=== PATIENT | male | born 1970 | race Two or more races ===

== ENCOUNTER 2022-03-18 15:48 | Emergency (ER) | payer MEDICAID ==
[~2022-03-18] VITALS: Ht 180.3 cm; Wt 104.5 kg
[~2022-03-18 15:48] MED LIST: ALBU2TAB4 PO; BUSP10TA90 PO; LITH150C6 PO; LOSA-69 PO; METF500S PO; MONT5CHW23 PO; PROP60CA34 PO; QUET50TA PO; ROSU20TA14 PO; TOPI50TA32 PO
[2022-03-18 16:44] LABS: Basophils # (auto) 0.1 10 ^3/uL (0-0.2); Basophils % (auto) 0.7 % (0.0-2.0); Eosinophils # (auto) 0.1 10 ^3/uL (0-0.8); Eosinophils % (auto) 1.4 % (0.0-7.0); Hemoglobin 15.5 g/dL (13.5-17.5); Lymphocytes # (auto) 2.9 10 ^3/uL (0.4-5.4); Lymphocytes % (auto) 27.8 % (10.0-50.0); Mean Corpuscular Hemoglobin 28.8 pg (28.0-32.0); Mean Corpuscular Hgb Conc. 32.2 g/dL (32.0-36.0); Mean Corpuscular Volume 89.5 fL (80.0-100.0); Monocytes # (auto) 0.9 10 ^3/uL (0-1.3); Monocytes % (auto) 8.3 % (0.0-12.0); Neutrophils # (auto) 6.4 10 ^3/uL (1.6-8.6); Neutrophils % (auto) 61.8 % (37.0-80.0); Red Blood Cells 5.37 10^6/uL (4.5-5.90); Red Cell Distribution Width 15.7 % (11.8-14.3); White Blood Cell 10.3 10^3/uL (4.4-10.8)
[2022-03-18 17:08] LABS: Alanine Aminotransferase 28 U/L (16-61); Albumin 4.2 g/dL (3.4-5.0); Anion Gap 7 (5-15); Aspartate Aminotransferase 9 U/L (15-37); Blood Alcohol < 3.0 mg/dL (0-5); Blood Urea Nitrogen 37 mg/dL (7-18); Calcium 9.6 mg/dL (8.5-10.1); Carbon Dioxide 27 mmol/L (21-32); Chloride 105 mmol/L (98-107); Glucose 106 mg/dL (74-106); Potassium 4.2 mmol/L (3.5-5.1); Sodium 139 mmol/L (136-145)
[2022-03-18 17:11] LABS: Alkaline Phosphatase 54 U/L (45-117); BUN/Creatinine Ratio 26.1; Bilirubin, Total 0.3 mg/dL (0.2-1.0); GFR African American 67 mL/min; GFR Non-African American 55 mL/min; Total Protein 8.1 g/dL (6.4-8.2)
[2022-03-18 18:28] LABS: Urine Amorphous Crystal MOD /hpf (None Seen); Urine Bacteria FEW /hpf (None Seen); Urine Blood Negative /uL (Negative); Urine Hyaline Cast FEW /lpf (0 - 2); Urine Mucus FEW (None Seen); Urine Specific Gravity 1.029 (1.001-1.035); Urine WBC 93 /hpf (0 - 3)
[2022-03-18 18:43] LABS: Amphetamine Screen, Urine NEGATIVE (NEGATIVE); Barbiturate Scree,Urine NEGATIVE (NEGATIVE); Benzodiazephine Screen, Urine POSITIVE (NEGATIVE); Cannabinoid Screen, Urine POSITIVE (NEGATIVE); Cocaine Screen, Urine NEGATIVE (NEGATIVE); Opiate Scree,Urine NEGATIVE (NEGATIVE); Phencyclidine Screen, Urine NEGATIVE (NEGATIVE)
[2022-03-18] MEDS ORDERED: NITR-87 PO (19:11)
[2022-03-18] MEDS ORDERED: ACETAMINOPHEN 325 MG TAB PO ONE (19:30)
[2022-03-18 19:36] VITALS: BP 151/86
== END 2022-03-18 19:41 | disposition home or self-care (01) ==
LOC: EDBD 15:48 → ER 15:48
DX: G44.209 Tension-type headache, unspecified, not intractable (principal); N39.0 Urinary tract infection, site not specified; F12.10 Cannabis abuse, uncomplicated; F17.210 Nicotine dependence, cigarettes, uncomplicated; E11.9 Type 2 diabetes mellitus without complications; J44.9 Chronic obstructive pulmonary disease, unspecified; E78.5 Hyperlipidemia, unspecified; I10 Essential (primary) hypertension
CPT/HCPCS: 36415; 70450; 80053; 80307; 80320; 81001; 85025; 93005

== ENCOUNTER 2023-11-05 13:53 | Inpatient (IN) | payer MEDICAID ==
[~2023-11-05] VITALS: Ht 177.8 cm; Wt 131.4 kg
[~2023-11-05 13:53] MED LIST changes: +ALBU2TAB11 PO; -ALBU2TAB4 PO; +LOSA-534 PO; -LOSA-69 PO; -METF500S PO; +METF500S3 PO; +MONT5CHW12 PO; -MONT5CHW23 PO; +NITR-87 PO
[2023-11-05 14:25] LABS: Basophils # (auto) 0.1 10 ^3/uL (0-0.2); Basophils % (auto) 0.5 % (0.0-2.0); Eosinophils # (auto) 0 10 ^3/uL (0-0.8); Eosinophils % (auto) 0.3 % (0.0-7.0); Hemoglobin 15.2 g/dL (13.5-17.5); Lymphocytes # (auto) 1.4 10 ^3/uL (0.4-5.4); Lymphocytes % (auto) 12.4 % (10.0-50.0); Mean Corpuscular Hemoglobin 29.4 pg (28.0-32.0); Mean Corpuscular Hgb Conc. 32.9 g/dL (32.0-36.0); Mean Corpuscular Volume 89.4 fL (80.0-100.0); Monocytes # (auto) 0.7 10 ^3/uL (0-1.3); Monocytes % (auto) 6.3 % (0.0-12.0); Neutrophils % (auto) 80.5 % (37.0-80.0); Nucleated Red Blood Cells % 0.1 %; Red Blood Cells 5.15 10^6/uL (4.5-5.90); Red Cell Distribution Width 15.1 % (11.8-14.3); White Blood Cell 11.2 10^3/uL (4.4-10.8)
[2023-11-05 14:42] LABS: INR 1.03 (0.9-1.15); Partial Thromboplastin Time 28.8 SEC (24.5-34.5); Prothrombin Time 10.8 sec (9.3-11.8)
[2023-11-05 14:58] LABS: Alanine Aminotransferase 31 U/L (7-40); Albumin 4.7 g/dL (3.2-4.8); Alkaline Phosphatase 82 U/L (46-116); Anion Gap 7 (5-15); Aspartate Aminotransferase 13 U/L (13-40); Bilirubin, Total 0.2 mg/dL (0.2-1.0); Blood Urea Nitrogen 26 mg/dL (9-23); Calcium 10.1 mg/dL (8.7-10.4); Carbon Dioxide 27 mmol/L (20-30); Chloride 108 mmol/L (98-107); Glucose 158 mg/dL (74-106); Lipase 27 U/L (12-53); Potassium 4.8 mmol/L (3.5-5.1); Sodium 142 mmol/L (136-145); Total Protein 7.1 g/dL (5.7-8.2)
[2023-11-05] MEDS: SODIUM CHLORIDE 0.9% 1,000 ML IVB ONE (16:21)
[2023-11-05] MEDS: ONDANSETRON HCL 4 MG/2 ML VIAL IV ONE (16:29)
[2023-11-05] MEDS: MORPHINE SULFATE 4 MG/ML SYR/VIAL IV ONE (16:30)
[2023-11-05] MEDS: IOHEXOL 300 MG/ML 100ML BOTTLE IJ ONE (20:05)
[2023-11-05] MEDS ORDERED: ALBUTEROL SULF 2.5 MG/0.5ML(0.5%) NEB SOLN NEB PRN (22:30)
[2023-11-05] MEDS ORDERED: hydrALAZINE HCL 20 MG/ML VL IV PRN (22:30)
[2023-11-05] MEDS ORDERED: DEXTROSE (50%) 50ML SYRG IV PRN (22:30)
[2023-11-05] MEDS ORDERED: ACETAMINOPHEN 325 MG TAB PO PRN (22:30)
[2023-11-05] MEDS ORDERED: HYDROcodone-ACET 5/325MG TAB PO PRN (22:30)
[2023-11-05] MEDS: cefTRIAXone 1GM/50ML D5W 50 ML IV ONE (23:03)
[2023-11-05] MEDS: ONDANSETRON HCL 4 MG/2 ML VIAL IV PRN (23:03)
[2023-11-05] MEDS: MORPHINE SULFATE INJ 2 MG/ml SYRG IV PRN (23:04)
[2023-11-05] MEDS: ACCU-CHEK COMFORT CURVE STRIP VI SCH (23:12)
[2023-11-05] MEDS: InsuLIN REG 1unit/0.01ml Soln (100units/ml) SC SCH (23:12)
[2023-11-05] MEDS ORDERED: NITROGLYCERIN 0.4 MG SL TAB SL PRN (23:45)
[2023-11-05] MEDS ORDERED: MORPHINE SULFATE INJ 2 MG/ml SYRG IV PRN (23:45)
[2023-11-05 23:49] VITALS: BP 119/59; PULSE 94; RESP 16; TEMP 97.6; O2SAT 94
[2023-11-06 05:26] LABS: Basophils # (auto) 0 10 ^3/uL (0-0.2); Basophils % (auto) 0.4 % (0.0-2.0); Eosinophils # (auto) 0.2 10 ^3/uL (0-0.8); Eosinophils % (auto) 1.4 % (0.0-7.0); Hematocrit 43.3 % (41.0-53.0); Hemoglobin 14.2 g/dL (13.5-17.5); Lymphocytes # (auto) 2.7 10 ^3/uL (0.4-5.4); Lymphocytes % (auto) 23.3 % (10.0-50.0); Mean Corpuscular Hemoglobin 29.5 pg (28.0-32.0); Mean Corpuscular Hgb Conc. 32.9 g/dL (32.0-36.0); Mean Corpuscular Volume 89.7 fL (80.0-100.0); Monocytes % (auto) 8.7 % (0.0-12.0); Neutrophils # (auto) 7.7 10 ^3/uL (1.6-8.6); Neutrophils % (auto) 66.2 % (37.0-80.0); Red Blood Cells 4.83 10^6/uL (4.5-5.90); Red Cell Distribution Width 15.1 % (11.8-14.3); White Blood Cell 11.7 10^3/uL (4.4-10.8)
[2023-11-06 05:42] LABS: Alanine Aminotransferase 31 U/L (7-40); Albumin 4.6 g/dL (3.2-4.8); Alkaline Phosphatase 73 U/L (46-116); Anion Gap 6 (5-15); Aspartate Aminotransferase 17 U/L (13-40); Bilirubin, Total 0.2 mg/dL (0.2-1.0); Blood Urea Nitrogen 16 mg/dL (9-23); Calcium 9.2 mg/dL (8.5-10.1); Carbon Dioxide 24 mmol/L (20-30); Chloride 108 mmol/L (98-107); Glucose 108 mg/dL (74-106); Potassium 3.7 mmol/L (3.5-5.1); Sodium 138 mmol/L (136-145); Total Protein 6.7 g/dL (5.7-8.2)
[2023-11-06 06:54] VITALS: PULSE 83; RESP 18; O2SAT 91
[2023-11-06 07:45] VITALS: RESP 20; O2SAT 93
[2023-11-06 08:01] LABS: Urine Bacteria NONE SEEN /hpf (None Seen); Urine Blood Negative /uL (Negative); Urine Clarity HAZY (Clear); Urine Color Yellow (Yellow); Urine Mucus FEW (None Seen); Urine Protein, UAD TRACE (Negative); Urine Specific Gravity 1.046 (1.001-1.035); Urine Urobilinogen Normal (Negative); Urine WBC 4 /hpf (0 - 3)
[2023-11-06] MEDS: BENZOCAINE (DENTAL) 20 % SPRAY 60ML MT ONE (10:44)
[2023-11-06] MEDS: metroNIDAZOLE 500MG/100ML 100 ML IV SCH (13:51)
[2023-11-06 17:20] VITALS: BP 144/67; PULSE 80; RESP 20; TEMP 97.9; O2SAT 92
[2023-11-06] MEDS: cefTRIAXone 1GM/50ML D5W 50 ML IV SCH (21:42)
[2023-11-06 22:00] VITALS: BP 141/98; PULSE 81; RESP 18; TEMP 97.7; O2SAT 95
[2023-11-06] MEDS: PANTOPRAZOLE 40 MG/10 ML VIAL INJ IV ONE (22:03)
[2023-11-07] VITALS (10 sets, daily range): BP systolic 103–136; BP diastolic 52–76; PULSE 69–88; RESP 16–20; TEMP 97.7–98.7; O2SAT 94–97
[2023-11-07] MEDS ORDERED: GASTROGRAFIN 120 ML SOL ONE (08:47)
[2023-11-07 11:31] LABS: Basophils # (auto) 0.1 10 ^3/uL (0-0.2); Basophils % (auto) 0.6 % (0.0-2.0); Eosinophils # (auto) 0.1 10 ^3/uL (0-0.8); Eosinophils % (auto) 1.1 % (0.0-7.0); Hematocrit 45.9 % (41.0-53.0); Hemoglobin 15.2 g/dL (13.5-17.5); Lymphocytes # (auto) 2.1 10 ^3/uL (0.4-5.4); Lymphocytes % (auto) 18.9 % (10.0-50.0); Mean Corpuscular Hemoglobin 29.5 pg (28.0-32.0); Mean Corpuscular Hgb Conc. 33.1 g/dL (32.0-36.0); Mean Corpuscular Volume 89.2 fL (80.0-100.0); Monocytes # (auto) 0.9 10 ^3/uL (0-1.3); Monocytes % (auto) 8.4 % (0.0-12.0); Nucleated Red Blood Cells % 0.1 %; Red Blood Cells 5.15 10^6/uL (4.5-5.90); Red Cell Distribution Width 15.5 % (11.8-14.3); White Blood Cell 11.2 10^3/uL (4.4-10.8)
[2023-11-07 11:43] LABS: Chloride 109 mmol/L (98-107); Potassium 3.8 mmol/L (3.5-5.1); Sodium 142 mmol/L (136-145)
[2023-11-07 11:44] LABS: Anion Gap 9 (5-15); Carbon Dioxide 24 mmol/L (20-30)
[2023-11-07 11:45] LABS: Calcium 9.7 mg/dL (8.5-10.1)
[2023-11-07 11:49] LABS: BUN/Creatinine Ratio 16.8 (10.0-20.0); Blood Urea Nitrogen 18 mg/dL (9-23); Glucose 137 mg/dL (74-106)
[2023-11-07] MEDS: PANTOPRAZOLE 40 MG/10 ML VIAL INJ IV SCH (11:54)
[2023-11-07] MEDS ORDERED: DOCUSATE SOD 100 MG CAP PO PRN (17:15)
[2023-11-08 01:00] VITALS: BP 123/75; PULSE 79; RESP 18; TEMP 98.4; O2SAT 97
[2023-11-08 05:00] VITALS: BP 137/71; PULSE 73; RESP 16; TEMP 97.8; O2SAT 97
[2023-11-08 07:23] LABS: Basophils # (auto) 0.1 10 ^3/uL (0-0.2); Basophils % (auto) 0.7 % (0.0-2.0); Eosinophils # (auto) 0.2 10 ^3/uL (0-0.8); Eosinophils % (auto) 1.7 % (0.0-7.0); Hematocrit 44.2 % (41.0-53.0); Hemoglobin 14.6 g/dL (13.5-17.5); Lymphocytes # (auto) 2.5 10 ^3/uL (0.4-5.4); Lymphocytes % (auto) 27.3 % (10.0-50.0); Mean Corpuscular Hemoglobin 29.8 pg (28.0-32.0); Mean Corpuscular Volume 90.4 fL (80.0-100.0); Monocytes # (auto) 0.8 10 ^3/uL (0-1.3); Monocytes % (auto) 8.8 % (0.0-12.0); Neutrophils # (auto) 5.7 10 ^3/uL (1.6-8.6); Neutrophils % (auto) 61.5 % (37.0-80.0); Nucleated Red Blood Cells % 0.1 %; Red Cell Distribution Width 15.3 % (11.8-14.3); White Blood Cell 9.2 10^3/uL (4.4-10.8)
[2023-11-08 07:31] LABS: Anion Gap 2 (5-15); Carbon Dioxide 26 mmol/L (20-30); Chloride 110 mmol/L (98-107); Potassium 3.9 mmol/L (3.5-5.1); Sodium 138 mmol/L (136-145)
[2023-11-08 07:37] LABS: BUN/Creatinine Ratio 15.6 (10.0-20.0); Blood Urea Nitrogen 14 mg/dL (9-23); Glucose 112 mg/dL (74-106)
[2023-11-08 09:00] VITALS: BP 137/81; PULSE 85; RESP 20; TEMP 98.1; O2SAT 96
[2023-11-08 10:07] VITALS: BP 114/74; PULSE 74; RESP 17
[2023-11-09 09:09] LABS: Hepatitis B Surface Antigen Negative (Negative)
[2023-11-09 09:30] LABS: Hepatitis C Antibody Negative (Negative)
== END 2023-11-08 12:08 | disposition home or self-care (01) | DRG 245 ==
LOC: EDBD 13:53 → ER 13:53 → OVERFLOW 23:46 → WEST WING 11-06 17:47
PROVIDERS: ADMIT Internal Medicine Pulmonary Disease; ATTEND Internal Medicine Pulmonary Disease
DX: K51.30 Ulcerative (chronic) rectosigmoiditis without complications (principal); K56.7 Ileus, unspecified; K76.0 Fatty (change of) liver, not elsewhere classified; R65.10 Systemic inflammatory response syndrome (SIRS) of non-infectious origin without acute organ dysfunction; E11.65 Type 2 diabetes mellitus with hyperglycemia; E66.01 Morbid (severe) obesity due to excess calories; E78.5 Hyperlipidemia, unspecified; K62.89 Other specified diseases of anus and rectum; F17.210 Nicotine dependence, cigarettes, uncomplicated; K42.9 Umbilical hernia without obstruction or gangrene; I10 Essential (primary) hypertension; J44.9 Chronic obstructive pulmonary disease, unspecified; K40.90 Unilateral inguinal hernia, without obstruction or gangrene, not specified as recurrent; N28.1 Cyst of kidney, acquired; Z83.3 Family history of diabetes mellitus; I25.2 Old myocardial infarction; Z68.41 Body mass index [BMI] 40.0-44.9, adult; Z79.51 Long term (current) use of inhaled steroids; Z79.899 Other long term (current) drug therapy
CPT/HCPCS: 36415; 74177; 74250; 80048; 80053; 81001; 82962; 83036; 83690; 85025; 85610; 85730; 86803; 87340; C9113; G0378; J1815; J2405; J3490

== ENCOUNTER 2023-11-14 13:02 | Inpatient (IN) | payer MEDICAID ==
[~2023-11-14] VITALS: Ht 177.8 cm; Wt 131.4 kg
[~2023-11-14 13:02] MED LIST changes: -NITR-87 PO
[2023-11-14] MEDS: SODIUM CHLORIDE 0.9% 1,000 ML IVB ONE (14:00)
[2023-11-14] MEDS: PROCHLORPERAZINE EDISYLATE 5 MG/ML 2ML VIAL IV ONE (14:43)
[2023-11-14] MEDS: PANTOPRAZOLE 40 MG/10 ML VIAL INJ IV ONE (14:43)
[2023-11-14 14:45] LABS: Basophils # (auto) 0 10 ^3/uL (0-0.2); Basophils % (auto) 0.3 % (0.0-2.0); Eosinophils # (auto) 0 10 ^3/uL (0-0.8); Eosinophils % (auto) 0.1 % (0.0-7.0); Hematocrit 48.3 % (41.0-53.0); Hemoglobin 16.4 g/dL (13.5-17.5); Mean Corpuscular Hemoglobin 30.1 pg (28.0-32.0); Mean Corpuscular Hgb Conc. 34.1 g/dL (32.0-36.0); Mean Corpuscular Volume 88.3 fL (80.0-100.0); Monocytes # (auto) 0.6 10 ^3/uL (0-1.3); Monocytes % (auto) 3.9 % (0.0-12.0); Neutrophils # (auto) 12.7 10 ^3/uL (1.6-8.6); Neutrophils % (auto) 88.7 % (37.0-80.0); Red Blood Cells 5.47 10^6/uL (4.5-5.90); Red Cell Distribution Width 15.5 % (11.8-14.3); White Blood Cell 14.4 10^3/uL (4.4-10.8)
[2023-11-14] MEDS: MORPHINE SULFATE 4 MG/ML SYR/VIAL IV ONE (14:47)
[2023-11-14 14:48] LABS: Chloride 102 mmol/L (98-107); Potassium 4.1 mmol/L (3.5-5.1); Sodium 139 mmol/L (136-145)
[2023-11-14 14:49] LABS: Anion Gap 15 (5-15); Calcium 11.4 mg/dL (8.7-10.4); Carbon Dioxide 22 mmol/L (20-30)
[2023-11-14 14:54] LABS: Blood Urea Nitrogen 22 mg/dL (9-23); Lipase 28 U/L (12-53)
[2023-11-14 15:03] LABS: Glucose 218 mg/dL (74-106)
[2023-11-14] MEDS: cloNIDine HCL 0.1 MG TAB PO ONE (17:59)
[2023-11-14 18:13] VITALS: PULSE 98; RESP 14; O2SAT 95
[2023-11-14] MEDS ORDERED: ACETAMINOPHEN 325 MG TAB PO PRN (18:45)
[2023-11-14] MEDS ORDERED: DOCUSATE SOD 100 MG CAP PO PRN (18:45)
[2023-11-14] MEDS ORDERED: NITROGLYCERIN 0.4 MG SL TAB SL PRN (18:45)
[2023-11-14] MEDS: ONDANSETRON HCL 4 MG/2 ML VIAL IV PRN (19:02)
[2023-11-14] MEDS: MORPHINE SULFATE INJ 2 MG/ml SYRG IV PRN (19:03)
[2023-11-14] MEDS: CEFEPIME 1GM/ 50ML 50 ML IV ONE (19:05)
[2023-11-14 19:15] VITALS: PULSE 96; RESP 18; O2SAT 91
[2023-11-14 20:23] LABS: Urine Amorphous Crystal MOD /hpf (None Seen); Urine Bacteria FEW /hpf (None Seen); Urine Blood Negative /uL (Negative); Urine Clarity Ex.Turbid (Clear); Urine Color Orange (Yellow); Urine Hyaline Cast FEW /lpf (0 - 2); Urine Mucus FEW (None Seen); Urine Protein, UAD 3+ (Negative); Urine Specific Gravity 1.031 (1.001-1.035); Urine Urobilinogen Normal (Negative); Urine WBC 10 /hpf (0 - 3); Urine pH 5.5 (5.0-9.0)
[2023-11-14 21:00] VITALS: BP 174/129; PULSE 91; RESP 18; TEMP 97.7; O2SAT 93
[2023-11-14 21:11] VITALS: BP 174/129; PULSE 91; RESP 16; RESP 18; TEMP 97.7; O2SAT 94
[2023-11-14 22:05] VITALS: BP 112/58
[2023-11-14] MEDS: metroNIDAZOLE 500MG/100ML 100 ML IV SCH (22:05)
[2023-11-14] MEDS ORDERED: DEXTROSE (50%) 50ML SYRG IV PRN (23:15)
[2023-11-14] MEDS ORDERED: IPRATROPIUM BROM 0.5 MG/2.5ML INH SOL NEB PRN (23:30)
[2023-11-14] MEDS ORDERED: ALBUTEROL SULF 2.5 MG/0.5ML(0.5%) NEB SOLN NEB PRN (23:30)
[2023-11-15] VITALS (8 sets, daily range): BP systolic 104–145; BP diastolic 55–94; PULSE 75–93; RESP 16–20; TEMP 97.7–98.6; O2SAT 92–94
[2023-11-15] MEDS: HYDROcodone-ACET 5/325MG TAB PO PRN (02:20)
[2023-11-15] MEDS: ACCU-CHEK COMFORT CURVE STRIP VI SCH (06:32)
[2023-11-15] MEDS: CEFEPIME 1GM/ 50ML 50 ML IV SCH (06:32)
[2023-11-15] MEDS: InsuLIN REG 1unit/0.01ml Soln (100units/ml) SC SCH (06:37)
[2023-11-15 06:57] LABS: Basophils # (auto) 0.1 10 ^3/uL (0-0.2); Basophils % (auto) 0.6 % (0.0-2.0); Eosinophils # (auto) 0.1 10 ^3/uL (0-0.8); Eosinophils % (auto) 0.4 % (0.0-7.0); Hematocrit 42.5 % (41.0-53.0); Hemoglobin 14.1 g/dL (13.5-17.5); Lymphocytes # (auto) 1.7 10 ^3/uL (0.4-5.4); Lymphocytes % (auto) 12.1 % (10.0-50.0); Mean Corpuscular Hemoglobin 29.8 pg (28.0-32.0); Mean Corpuscular Hgb Conc. 33.3 g/dL (32.0-36.0); Mean Corpuscular Volume 89.5 fL (80.0-100.0); Monocytes # (auto) 1.1 10 ^3/uL (0-1.3); Neutrophils # (auto) 11.2 10 ^3/uL (1.6-8.6); Neutrophils % (auto) 78.9 % (37.0-80.0); Nucleated Red Blood Cells % 0.1 %; Red Blood Cells 4.75 10^6/uL (4.5-5.90); Red Cell Distribution Width 15.6 % (11.8-14.3); White Blood Cell 14.1 10^3/uL (4.4-10.8)
[2023-11-15 07:19] LABS: Alanine Aminotransferase 38 U/L (7-40); Albumin 4.7 g/dL (3.2-4.8); Alkaline Phosphatase 74 U/L (46-116); Anion Gap 5 (5-15); Aspartate Aminotransferase 23 U/L (13-40); BUN/Creatinine Ratio 19.6 (10.0-20.0); Blood Urea Nitrogen 22 mg/dL (9-23); Calcium 9.6 mg/dL (8.5-10.1); Carbon Dioxide 26 mmol/L (20-30); Chloride 108 mmol/L (98-107); Glucose 147 mg/dL (74-106); Potassium 3.3 mmol/L (3.5-5.1); Sodium 139 mmol/L (136-145)
[2023-11-15 07:20] LABS: Bilirubin, Total 0.3 mg/dL (0.2-1.0); Total Protein 6.8 g/dL (5.7-8.2)
[2023-11-15] MEDS: PANTOPRAZOLE 40 MG/10 ML VIAL INJ IV SCH (08:58)
[2023-11-15] MEDS: LOSARTAN POTASSIUM 50 MG TAB PO SCH (08:59)
[2023-11-15] MEDS: busPIRone HCL 10 MG TAB PO SCH (08:59)
[2023-11-15] MEDS: MONTELUKAST 5 MG PO SCH (09:00)
[2023-11-15] MEDS: POLYETHYLENE GLYCOL 17 GM PWDR PO ONE (11:00)
[2023-11-15] MEDS: POTASSIUM CHL 20 Meq TABLET PO ONE ×2 (14:50)
[2023-11-15 15:12] LABS: Urine Bacteria None Seen /hpf (None Seen)
[2023-11-15 15:15] LABS: Urine Blood Negative /uL (Negative); Urine Clarity Clear (Clear); Urine Color Yellow (Yellow); Urine Protein, UAD Negative (Negative); Urine Specific Gravity 1.024 (1.001-1.035); Urine Urobilinogen Normal (Negative); Urine WBC 4 /hpf (0 - 3); Urine pH 5.5 (5.0-9.0)
[2023-11-15] MEDS: QUEtiapine FUMARATE 25 MG TAB PO SCH (22:27)
[2023-11-16] VITALS (7 sets, daily range): BP systolic 113–164; BP diastolic 64–109; PULSE 74–94; RESP 17–19; TEMP 97.5–97.9; O2SAT 91–96
[2023-11-16 06:37] LABS: Alanine Aminotransferase 56 U/L (7-40); Albumin 4.8 g/dL (3.2-4.8); Alkaline Phosphatase 75 U/L (46-116); Anion Gap 12 (5-15); Aspartate Aminotransferase 32 U/L (13-40); BUN/Creatinine Ratio 22.1 (10.0-20.0); Blood Urea Nitrogen 23 mg/dL (9-23); Calcium 9.9 mg/dL (8.7-10.4); Carbon Dioxide 21 mmol/L (20-30); Chloride 105 mmol/L (98-107); Glucose 150 mg/dL (74-106); Potassium 3.7 mmol/L (3.5-5.1); Sodium 138 mmol/L (136-145)
[2023-11-16 06:38] LABS: Bilirubin, Total 0.5 mg/dL (0.2-1.0); Total Protein 7.5 g/dL (5.7-8.2)
[2023-11-16] MEDS: MORPHINE SULFATE INJ 2 MG/ml SYRG IV PRN (11:58)
[2023-11-16] MEDS: GOLYTELY 4L KIT PO ONE (12:15)
[2023-11-16] MEDS: cefTRIAXone 1GM/50ML D5W 50 ML IV SCH (21:43)
[2023-11-17] VITALS (12 sets, daily range): BP systolic 111–144; BP diastolic 73–99; PULSE 69–93; RESP 18–22; TEMP 97.2–98.2; O2SAT 92–97
[2023-11-17] MEDS: POLYETHYLENE GLYCOL 17 GM PWDR PO ONE (00:16)
[2023-11-17] MEDS ORDERED: MAGNESIUM CITRATE SOLUTION 300 ML BTL PO ONE (06:00)
[2023-11-17] MEDS: GOLYTELY 4L KIT PO ONE (06:16)
[2023-11-17 06:40] LABS: Basophils # (auto) 0.1 10 ^3/uL (0-0.2); Basophils % (auto) 0.5 % (0.0-2.0); Eosinophils # (auto) 0.1 10 ^3/uL (0-0.8); Eosinophils % (auto) 0.4 % (0.0-7.0); Hemoglobin 14.7 g/dL (13.5-17.5); Lymphocytes # (auto) 2.8 10 ^3/uL (0.4-5.4); Lymphocytes % (auto) 24.2 % (10.0-50.0); Mean Corpuscular Hemoglobin 29.9 pg (28.0-32.0); Mean Corpuscular Hgb Conc. 33.5 g/dL (32.0-36.0); Mean Corpuscular Volume 89.3 fL (80.0-100.0); Monocytes % (auto) 9.1 % (0.0-12.0); Neutrophils # (auto) 7.5 10 ^3/uL (1.6-8.6); Neutrophils % (auto) 65.8 % (37.0-80.0); Red Blood Cells 4.93 10^6/uL (4.5-5.90); Red Cell Distribution Width 15.4 % (11.8-14.3); White Blood Cell 11.5 10^3/uL (4.4-10.8)
[2023-11-17 06:47] LABS: Anion Gap 10 (5-15); Calcium 9.7 mg/dL (8.7-10.4); Carbon Dioxide 25 mmol/L (20-30); Chloride 106 mmol/L (98-107); Potassium 3.4 mmol/L (3.5-5.1); Sodium 141 mmol/L (136-145)
[2023-11-17 06:52] LABS: Glucose 123 mg/dL (74-106)
[2023-11-17 06:53] LABS: Blood Urea Nitrogen 19 mg/dL (9-23)
[2023-11-17 07:34] LABS: INR 1.02 (0.9-1.15); Partial Thromboplastin Time 27.1 SEC (24.5-34.5); Prothrombin Time 10.7 sec (9.3-11.8)
[2023-11-17] MEDS: MORPHINE SULFATE INJ 2 MG/ml SYRG IV PRN (08:35)
[2023-11-17] MEDS ORDERED: ONDANSETRON HCL 4 MG/2 ML VIAL IV ONE (10:00)
[2023-11-17] MEDS ORDERED: fentaNYL CITRATE 100 MCG/2 ML VL ONE (10:08)
[2023-11-17] MEDS ORDERED: MIDAZOLAM HCL 2MG/2ML 2ml VIAL (1mg/ml) ONE (10:08)
[2023-11-17] MEDS ORDERED: KETAMINE 50mg/ML 1ml syringe ONE (10:09)
[2023-11-17] MEDS ORDERED: PROPOFOL 10 MG/ML 20 ML IV ONE ×2 (10:25→10:36)
[2023-11-17] MEDS ORDERED: LIDOCAINE 1% INJ PF 5ML AMP ONE (10:41)
[2023-11-17] MEDS ORDERED: ONDANSETRON HCL 4 MG/2 ML VIAL ONE (10:43)
[2023-11-17] MEDS: MONTELUKAST SODIUM 10 MG TAB PO SCH (12:22)
[2023-11-17] MEDS: busPIRone HCL 10 MG TAB PO SCH (12:22)
[2023-11-17] MEDS: hydrOXYzine 25 MG TAB or CAP PO SCH (12:30)
[2023-11-17] MEDS: traZODone HCL 50 MG TAB PO SCH (22:14)
[2023-11-18] VITALS (7 sets, daily range): BP systolic 117–138; BP diastolic 70–87; PULSE 70–83; RESP 18–20; TEMP 97.6–98.2; O2SAT 93–95
[2023-11-18 07:28] LABS: Basophils # (auto) 0.1 10 ^3/uL (0-0.2); Basophils % (auto) 0.8 % (0.0-2.0); Eosinophils # (auto) 0.1 10 ^3/uL (0-0.8); Eosinophils % (auto) 1.2 % (0.0-7.0); Hematocrit 43.1 % (41.0-53.0); Hemoglobin 14.5 g/dL (13.5-17.5); Lymphocytes # (auto) 3.1 10 ^3/uL (0.4-5.4); Mean Corpuscular Hgb Conc. 33.5 g/dL (32.0-36.0); Mean Corpuscular Volume 89.5 fL (80.0-100.0); Monocytes # (auto) 0.8 10 ^3/uL (0-1.3); Monocytes % (auto) 8.1 % (0.0-12.0); Neutrophils # (auto) 5.9 10 ^3/uL (1.6-8.6); Neutrophils % (auto) 58.9 % (37.0-80.0); Nucleated Red Blood Cells % 0.1 %; Red Blood Cells 4.82 10^6/uL (4.5-5.90); Red Cell Distribution Width 15.7 % (11.8-14.3); White Blood Cell 9.9 10^3/uL (4.4-10.8)
[2023-11-18] MEDS ORDERED: HYDR25CA PO (08:38)
[2023-11-18] MEDS ORDERED: BUSP10TA31 PO (08:38)
[2023-11-18] MEDS ORDERED: TRAZ-228 PO (08:38)
== END 2023-11-18 14:00 | disposition home or self-care (01) | DRG 244 ==
LOC: ER 13:02 → EDBD 13:02 → OVERFLOW 18:36 → EAST 21:10
PROVIDERS: ADMIT Nurse Practitioner Family; ATTEND Family Medicine
PROC: 0DBL8ZZ Excision of Transverse Colon, Via Natural or Artificial Opening Endoscopic (ICD-10-PCS; 2023-11-17)
PROC: 0DBK8ZX Excision of Ascending Colon, Via Natural or Artificial Opening Endoscopic, Diagnostic (ICD-10-PCS; 2023-11-17)
PROC: 0DBK8ZZ Excision of Ascending Colon, Via Natural or Artificial Opening Endoscopic (ICD-10-PCS; principal; 2023-11-17 10:03)
DX: K57.31 Diverticulosis of large intestine without perforation or abscess with bleeding (principal); K76.0 Fatty (change of) liver, not elsewhere classified; E11.9 Type 2 diabetes mellitus without complications; N39.0 Urinary tract infection, site not specified; E66.01 Morbid (severe) obesity due to excess calories; E78.00 Pure hypercholesterolemia, unspecified; F11.10 Opioid abuse, uncomplicated; F20.9 Schizophrenia, unspecified; F32.A Depression, unspecified; I10 Essential (primary) hypertension; J44.9 Chronic obstructive pulmonary disease, unspecified; K42.9 Umbilical hernia without obstruction or gangrene; G47.00 Insomnia, unspecified; M54.9 Dorsalgia, unspecified; F41.9 Anxiety disorder, unspecified; N28.1 Cyst of kidney, acquired; K63.5 Polyp of colon; K64.8 Other hemorrhoids; I25.2 Old myocardial infarction; Z79.899 Other long term (current) drug therapy; Z83.3 Family history of diabetes mellitus; Z88.0 Allergy status to penicillin; Z68.41 Body mass index [BMI] 40.0-44.9, adult; Z79.84 Long term (current) use of oral hypoglycemic drugs
CPT/HCPCS: 36415; 71045; 74176; 80048; 80053; 81001; 82962; 83690; 85025; 85610; 85730; 87040; 87081; 93005; 96361; 96365; 96375; 96376; C9113; G0378; J1815; J2250; J2405; J2704; J3490

== ENCOUNTER 2024-04-22 07:22 | Inpatient (IN) | payer MEDICAID ==
[~2024-04-22] VITALS: Ht 177.8 cm; Wt 113.0 kg
[~2024-04-22 07:22] MED LIST changes: +ALBU108A5 INH; +ASPI81CH59 PO; +BECL80AE11 INH; +BUSP10TA31 PO; +BUSP15TA60 PO; +DIVA500T13 PO; +HYDR25CA PO; +HYDR25TA4 PO; +HYDR50TA69 PO; +IRBE300T79 PO; -LITH150C6 PO; +METF-372 PO; +NIFE1TAB31 PO; +OXYC325T14 PO; +PANT40TA2 PO; -PROP60CA34 PO; +QUET200T86 PO; +SERT-206 PO; -TOPI50TA32 PO; +TRAZ-228 PO; +VARE1TAB12 PO
[2024-04-22 08:28] LABS: Basophils # (auto) 0 10 ^3/uL (0-0.2); Basophils % (auto) 0.4 % (0.0-2.0); Eosinophils # (auto) 0.5 10 ^3/uL (0-0.8); Eosinophils % (auto) 4.4 % (0.0-7.0); Hemoglobin 16.3 g/dL (13.5-17.5); Lymphocytes # (auto) 2.8 10 ^3/uL (0.4-5.4); Lymphocytes % (auto) 26.3 % (10.0-50.0); Mean Corpuscular Hemoglobin 30.5 pg (28.0-32.0); Mean Corpuscular Volume 89.7 fL (80.0-100.0); Monocytes # (auto) 0.8 10 ^3/uL (0-1.3); Monocytes % (auto) 7.6 % (0.0-12.0); Neutrophils # (auto) 6.5 10 ^3/uL (1.6-8.6); Neutrophils % (auto) 61.3 % (37.0-80.0); Platelet Count (auto) 315 10^3/uL (140-450); Red Blood Cells 5.35 10^6/uL (4.5-5.90); Red Cell Distribution Width 15.1 % (11.8-14.3); White Blood Cell 10.6 10^3/uL (4.4-10.8)
[2024-04-22 08:46] LABS: Alanine Aminotransferase 19 U/L (7-40); Albumin 5.2 g/dL (3.2-4.8); Alkaline Phosphatase 75 U/L (46-116); Anion Gap 8 (5-15); Aspartate Aminotransferase 8 U/L (13-40); BUN/Creatinine Ratio 20.5 (10.0-20.0); Bilirubin, Total 0.3 mg/dL (0.2-1.0); Blood Urea Nitrogen 24 mg/dL (9-23); Calcium 10.5 mg/dL (8.7-10.4); Carbon Dioxide 31 mmol/L (20-30); Chloride 100 mmol/L (98-107); Glucose 129 mg/dL (74-106); Potassium 4.5 mmol/L (3.5-5.1); Sodium 139 mmol/L (136-145); Total Protein 7.9 g/dL (5.7-8.2)
[2024-04-22] MEDS: HYDROcodone-ACET 10/325MG TAB PO ONE (15:47)
[2024-04-22] MEDS ORDERED: ONDANSETRON HCL 4 MG/2 ML VIAL IV PRN (17:00)
[2024-04-22] MEDS ORDERED: NITROGLYCERIN 0.4 MG SL TAB SL PRN ×2 (17:00)
[2024-04-22 18:11] LABS: INR 1.03 (0.9-1.15); Prothrombin Time 10.9 sec (9.3-11.8)
[2024-04-22 22:35] VITALS: PULSE 73; RESP 16; O2SAT 98
[2024-04-22 23:34] VITALS: BP 130/89; PULSE 72; RESP 18; TEMP 97.7; O2SAT 93
[2024-04-22 23:42] VITALS: BP 149/92; PULSE 75; RESP 18; TEMP 97.7
[2024-04-23] VITALS (8 sets, daily range): BP systolic 97–149; BP diastolic 78–96; PULSE 69–83; RESP 14–18; TEMP 97.5–98.5; O2SAT 91–95
[2024-04-23] MEDS: traZODone HCL 50 MG TAB PO SCH (00:08)
[2024-04-23] MEDS: QUEtiapine FUMARATE 25 MG TAB PO SCH (00:08)
[2024-04-23] MEDS: busPIRone HCL 10 MG TAB PO SCH (00:09)
[2024-04-23 06:05] LABS: Basophils # (auto) 0.1 10 ^3/uL (0-0.2); Basophils % (auto) 0.5 % (0.0-2.0); Eosinophils # (auto) 0.4 10 ^3/uL (0-0.8); Eosinophils % (auto) 3.2 % (0.0-7.0); Hematocrit 43.6 % (41.0-53.0); Hemoglobin 14.6 g/dL (13.5-17.5); Lymphocytes # (auto) 2.6 10 ^3/uL (0.4-5.4); Lymphocytes % (auto) 21.3 % (10.0-50.0); Mean Corpuscular Hemoglobin 30.2 pg (28.0-32.0); Mean Corpuscular Hgb Conc. 33.6 g/dL (32.0-36.0); Mean Corpuscular Volume 89.8 fL (80.0-100.0); Monocytes # (auto) 1.1 10 ^3/uL (0-1.3); Monocytes % (auto) 9.1 % (0.0-12.0); Neutrophils % (auto) 65.9 % (37.0-80.0); Platelet Count (auto) 263 10^3/uL (140-450); Red Blood Cells 4.85 10^6/uL (4.5-5.90); Red Cell Distribution Width 15.1 % (11.8-14.3); White Blood Cell 12.2 10^3/uL (4.4-10.8)
[2024-04-23 06:34] LABS: Alanine Aminotransferase 21 U/L (7-40); Albumin 4.7 g/dL (3.2-4.8); Alkaline Phosphatase 71 U/L (46-116); Anion Gap 7 (5-15); Aspartate Aminotransferase 11 U/L (13-40); BUN/Creatinine Ratio 22.6 (10.0-20.0); Bilirubin, Total 0.3 mg/dL (0.2-1.0); Blood Urea Nitrogen 21 mg/dL (9-23); Calcium 9.9 mg/dL (8.7-10.4); Carbon Dioxide 28 mmol/L (20-30); Chloride 104 mmol/L (98-107); Glucose 124 mg/dL (74-106); Potassium 4.1 mmol/L (3.5-5.1); Sodium 139 mmol/L (136-145); Total Protein 7.2 g/dL (5.7-8.2)
[2024-04-23] MEDS: PANTOPRAZOLE 40 MG TAB PO SCH (09:08)
[2024-04-23] MEDS: ACETAMINOPHEN 325 MG TAB PO PRN (09:08)
[2024-04-23] MEDS: ASPirin 81 mg TAB PO SCH (09:08)
[2024-04-23] MEDS: ATORVASTATIN 20 MG TAB PO SCH (09:09)
[2024-04-23] MEDS: LOSARTAN POTASSIUM 50 MG TAB PO SCH (09:09)
[2024-04-23] MEDS: MONTELUKAST SODIUM 10 MG TAB PO SCH (09:09)
[2024-04-23] MEDS: DOCUSATE SOD 100 MG CAP PO SCH (09:11)
[2024-04-23] MEDS ORDERED: OXY5T PO (10:04)
[2024-04-23] MEDS: oxyCODONE HCL 5MG TAB PO SCH (12:00)
[2024-04-23 12:16] LABS: Urine Bacteria None Seen /hpf (None Seen)
[2024-04-23 13:00] LABS: Triglycerides 160 mg/dL (< 150)
[2024-04-23 13:01] LABS: Cholesterol 185 mg/dL (< 200); LDL Cholesterol 115 mg/dL (< 100)
[2024-04-23 13:02] LABS: HDL Cholesterol 43 mg/dL (40-59)
[2024-04-23 13:10] LABS: Amphetamine Screen, Urine Neg (NEGATIVE)
[2024-04-23 13:11] LABS: Barbiturate Scree,Urine Neg (NEGATIVE); Benzodiazephine Screen, Urine Neg (NEGATIVE); Cannabinoid Screen, Urine Pos (NEGATIVE); Cocaine Screen, Urine Neg (NEGATIVE); Opiate Scree,Urine Neg (NEGATIVE); Phencyclidine Screen, Urine Neg (NEGATIVE)
[2024-04-23 13:15] LABS: COVID19 ANTIGEN SOFIA FIA NEGATIVE (NEGATIVE)
[2024-04-23 13:22] LABS: Urine Blood Negative /uL (Negative); Urine Clarity Clear (Clear); Urine Color Light-Yellow (Yellow); Urine Protein, UAD Negative (Negative); Urine Specific Gravity 1.018 (1.001-1.035); Urine Urobilinogen Normal (Negative); Urine WBC 5 /hpf (0 - 3)
[2024-04-23] MEDS ORDERED: CHOL20003 PO (17:26)
[2024-04-23] MEDS ORDERED: busPIRone HCL 10 MG TAB PO SCH (22:00)
[2024-04-24] MEDS ORDERED: hydrOXYzine 25 MG TAB or CAP PO SCH (10:00)
== END 2024-04-23 18:34 | disposition home or self-care (01) | DRG 351 ==
LOC: ER 07:22 → TELE 17:02 → TELE-E-ADS 23:05
PROVIDERS: ADMIT Internal Medicine; ATTEND Internal Medicine
DX: M79.602 Pain in left arm (principal); I11.0 Hypertensive heart disease with heart failure; I50.32 Chronic diastolic (congestive) heart failure; E11.65 Type 2 diabetes mellitus with hyperglycemia; R07.89 Other chest pain; E78.5 Hyperlipidemia, unspecified; Z20.822 Contact with and (suspected) exposure to COVID-19; F17.210 Nicotine dependence, cigarettes, uncomplicated; F20.9 Schizophrenia, unspecified; F32.A Depression, unspecified; E66.9 Obesity, unspecified; F42.9 Obsessive-compulsive disorder, unspecified; K42.9 Umbilical hernia without obstruction or gangrene; G47.30 Sleep apnea, unspecified; F41.0 Panic disorder [episodic paroxysmal anxiety]; Z88.0 Allergy status to penicillin; Z83.3 Family history of diabetes mellitus; I25.2 Old myocardial infarction; Z68.35 Body mass index [BMI] 35.0-35.9, adult
CPT/HCPCS: 36415; 71046; 80053; 80061; 80307; 81001; 83735; 84484; 85025; 85610; 87426; 93005; 93306; 93971; 99291; G0378

== ENCOUNTER 2024-07-20 14:39 | Inpatient (IN) | payer MEDICAID ==
[~2024-07-20] VITALS: Ht 175.3 cm; Wt 122.1 kg
[~2024-07-20 14:39] MED LIST changes: -ALBU2TAB11 PO; -BUSP10TA31 PO; -BUSP10TA90 PO; +CHOL20003 PO; -HYDR25CA PO; -METF500S3 PO; +OXY5T PO; -QUET50TA PO
[2024-07-20 15:19] LABS: Basophils # (auto) 0.1 10 ^3/uL (0-0.2); Basophils % (auto) 0.5 % (0.0-2.0); Eosinophils # (auto) 0 10 ^3/uL (0-0.8); Eosinophils % (auto) 0.2 % (0.0-7.0); Hematocrit 44.7 % (41.0-53.0); Hemoglobin 15.1 g/dL (13.5-17.5); Lymphocytes % (auto) 14.2 % (10.0-50.0); Mean Corpuscular Hemoglobin 29.6 pg (28.0-32.0); Mean Corpuscular Hgb Conc. 33.8 g/dL (32.0-36.0); Mean Corpuscular Volume 87.5 fL (80.0-100.0); Monocytes # (auto) 0.7 10 ^3/uL (0-1.3); Monocytes % (auto) 4.9 % (0.0-12.0); Neutrophils # (auto) 11.1 10 ^3/uL (1.6-8.6); Neutrophils % (auto) 80.2 % (37.0-80.0); Platelet Count (auto) 375 10^3/uL (140-450); Red Blood Cells 5.11 10^6/uL (4.5-5.90); White Blood Cell 13.8 10^3/uL (4.4-10.8)
[2024-07-20 15:31] LABS: Alanine Aminotransferase 16 U/L (7-40); Alkaline Phosphatase 92 U/L (46-116); Anion Gap 20 (5-15); Aspartate Aminotransferase 20 U/L (13-40); BUN/Creatinine Ratio 18.8 (10.0-20.0); Blood Urea Nitrogen 22 mg/dL (9-23); Chloride 101 mmol/L (98-107); Magnesium 1.7 mg/dL (1.6-2.6); Potassium 4.5 mmol/L (3.5-5.1); Sodium 140 mmol/L (136-145)
[2024-07-20 15:32] LABS: Bilirubin, Total 0.3 mg/dL (0.2-1.0); Total Protein 7.6 g/dL (5.7-8.2)
--- NOTE | 2024-07-20 15:32 | ED.PDOC ---
HPI Comments HPI: Poor Historian. 53-year-old male presents to the emergency department for one day history of left-sided chest pain radiating to the left upper extremity. Pain is constant better with warm water. Patient appears in some [id number]-[id number] distress. Denies any other associated symptoms. VITALS: Temp: 97.5F RR: 25 02 sat : 99 % on room air HR: 93 BP: 177/104 PMH: DM, hypertension, hyperlipidemia, Umbilical hernia, COPD, Anxiety, Depression, Schizophrenia, MO PSH: denies Social history: endorses tobacco use, denies ETOH use, denies drug use Medications: unknown Allergies: penicillins, metoclopramide REVIEW OF SYSTEMS: CONSTITUTIONAL: Denies acute: fever, diaphoresis, chills, generalized weakness. HEAD: Denies acute: headache, photophobia Eyes: Denies acute: Double vision, vision loss, eye pain, eye discharge. EARS: Denies acute: tinnitus, hearing loss, ear discharge, ear pain, THROAT: Denies acute: sore throat, swelling, difficulty swallowing , pain with swallowing, change in voice. NECK: Denies acute: neck pain, neck swelling, stiff neck. HEART: Denies acute : palpitations, LUNGS: Denies acute: SOB, wheezing, cough, hemoptysis ABDOMEN: Denies acute: abdominal pain, Nausea, Vomiting, diarrhea, melena , hematemesis, hematochezia SKIN: Denies acute: rash, redness, lesions, itchiness. EXTREMITIES: Denies acute: calf pain, numbness, tingling, weakness, denies pain in extremity. Denies acute: Low back pain. Neuro: Denies acute: focal neurological deficit, motor or sensory focal neurological deficit, tremors, seizure like activity, confusion, dizziness, change in mental status, loss of bowel or bladder function, cauda equina like symptoms. : Denies acute: dysuria, hematuria, flank pain, increase in urinary frequency. PSYCH: Denies acute: hallucination, suicidal ideation, homicidal ideation. PHYSICAL EXAM: General: no acute distress, awake and alert. Head: normocephalic, atraumatic. Neck: supple, trachea is midline, no swelling. Throat: Normal phonation. Eyes:, no erythema, no purulent discharge, no proptosis, no icterus. Heart: regular rate, regular rhythm, no significant murmur appreciated. Lungs: no apparent respiratory distress, Able to speak in full sentences. No wheezing, no rhonchi, no crackles. No stridors Clear to auscultation bilaterally. Abdomen: non tender to palpation, non distended, soft, no guarding, no rebound, + bowel sounds. Obese. Neuro: Awake, Alert, oriented to name, self, situation, follows commands GCS=15. Speech is normal. Skin: no petechia, no purpura, no cyanosis, non-pale, not jaundice. Lower extremities: --no - Pitting edema no deformity, no focal swelling, no calf TTP. Makes eye contact. moves all four extremities. Face: no apparent facial droop. Ambulating in the ED independently. Chief Complaint: Chest Pain Time Seen by MD: 14:58 Primary Care Provider: RAMÍREZ Reviewed Notes: Nurses Notes, Medications, Allergies Allergies: Coded Allergies: Metoclopramide (Verified Allergy, Unknown, 11/06/23) Penicillins (Verified Allergy, Unknown, 11/06/23) Home Meds Active Scripts Pantoprazole Sodium Sesquihydr (Protonix) 40 Mg Tab, 40 MG PO DAILY, #30 TAB Prov:GENARO MORRISON MD 01/30/24 Trazodone Hcl (Trazodone Hcl) 100 Mg Tab, 1 TAB PO QPM, #30 TAB 1 Refill Prov:ANNE MARIE RAYMOND MD 11/18/23 Reported Medications Irbesartan (Avapro) 300 Mg Tab, 150 MG PO DAILY for 30 Days, #30 04/23/24 Nifedipine (Nifedipine Er) 30 Mg Tab, 1 TAB PO DAILY for 90 Days, #90 04/23/24 Cholecalciferol (Vitamin D-3 Super Strengt) 2,000 Unit Tab, 1 TAB PO DAILY for 90 Days, #90 04/23/24 Aspirin (Aspirin Low Dose) 81 Mg Chw, 1 TAB PO DAILY for 90 Days, #90 04/23/24 Divalproex Sodium (Divalproex Sodium) 500 Mg Tab, 1 TAB PO TID for 90 Days, #270 04/23/24 Hydrochlorothiazide (Hydrochlorothiazide) 25 Mg Tab, 1 TAB PO DAILY for 90 Days, #90 04/23/24 Sertraline Hcl (Sertraline Hcl) 50 Mg Tab, 100 MG PO BID for 90 Days, #180 04/23/24 Varenicline Tartrate (Varenicline Starti... 0.5 mg X 11 & 1 mg X 42) 1 Tab Tab, TAB PO UD for 30 Days, #53 04/23/24 Oxycodone W/ Acetaminophen (Apap/Oxycodone) 1 Tab Tab, 1 TAB PO QID for 30 Days, #120 04/23/24 Beclomethasone Dipropionate (Qvar Redihaler) 80 Mcg/Act Aer, MCG INH UD for 30 Days, #120 04/23/24 Hydroxyzine Hcl (Hydroxyzine Hcl) 50 Mg Tab, 1 TAB PO BID PRN for ANXIETY for 90 Days, #180 04/23/24 Buspirone Hcl (Buspirone Hcl) 15 Mg Tab, 30 MG PO BID for 90 Days, #180 04/23/24 Albuterol Sulfate (Albuterol Sulfate Hfa) 108 Mcg/Act Aer, 2 PUFF INH Q6HR for 24 Days, #8.5 04/23/24 Metformin Hydrochloride (Metformin Hcl) 1,000 Mg Tab, 1 TAB PO BID for 90 Days, #180 04/23/24 Quetiapine Fumarate (Quetiapine Fumarate ER) 200 Mg Tab, 1 TAB PO DAILY for 90 Days, #90 04/23/24 Oxycodone Hcl (OXYCODONE HCL) 5 Mg Tb, 5 MG PO TID for updated dose, TAB 04/23/24 Montelukast Sodium (Singulair) 5 Mg Chw, 2 TAB PO DAILY, #30 TAB 5 Refills 09/03/19 Losartan Potassium (Losartan Potassium) 50 Mg Tab, 50 MG PO DAILY for 30 Days, MG 09/03/19 Rosuvastatin Calcium (Crestor) 20 Mg Tab, 20 MG PO DAILY, TAB 09/03/19 Mode of Arrival: Wheelchair Past Medical History PAST MEDICAL HISTORY: COPD, Depression, DM, High Lipids, HTN, MO, Schizophrenia Surgical History: Denies all surgeries Family History Family History: Family hx of DM, Family hx of Cancer, Family hx of heart sedrick Social History Smoker: Cigarettes Alcohol: Denies ETOH Use Drugs: Marijuana Lives In: Home Was a procedure done? Was a procedure done?: No X-Ray, Labs, Meds, VS Vital Signs Date Time Temp Pulse Resp B/P (MAP) Pulse Ox O2 Delivery O2 Flow Rate FiO2 07/20/24 16:19 153/90 07/20/24 16:12 98.1 92 20 153/90 (111) 98.1 07/20/24 15:51 178/119 07/20/24 15:38 91 07/20/24 15:24 97.9 96 28 178/119 (138) 97 97.9 07/20/24 15:24 96 28 97 Room Air 07/20/24 15:00 97.5 93 25 177/104 (128) 99 07/20/24 14:43 94 Lab Test 07/20/24 15:46 07/20/24 14:49 Range/Units Troponin I High Sensitivity 5 5 </=54 ng/L White Blood Count 13.8 H 4.4-10.8 10^3/uL Red Blood Count 5.11 4.5-5.90 10^6/uL Hemoglobin 15.1 13.5-17.5 g/dL Hematocrit 44.7 41.0-53.0 % Mean Corpuscular Volume 87.5 80.0-100.0 fL Mean Corpuscular Hemoglobin 29.6 28.0-32.0 pg Mean Corpuscular Hemoglobin Concent 33.8 32.0-36.0 g/dL Red Cell Distribution Width 14.0 11.8-14.3 % Platelet Count 375 140-450 10^3/uL Mean Platelet Volume 9.6 6.9-10.8 fL Neutrophils (%) (Auto) 80.2 H 37.0-80.0 % Lymphocytes (%) (Auto) 14.2 10.0-50.0 % Monocytes (%) (Auto) 4.9 0.0-12.0 % Eosinophils (%) (Auto) 0.2 0.0-7.0 % Basophils (%) (Auto) 0.5 0.0-2.0 % Neutrophils # (Auto) 11.1 H 1.6-8.6 10 ^3/uL Lymphocytes # (Auto) 2.0 0.4-5.4 10 ^3/uL Monocytes # (Auto) 0.7 0-1.3 10 ^3/uL Eosinophils # (Auto) 0 0-0.8 10 ^3/uL Basophils # (Auto) 0.1 0-0.2 10 ^3/uL Nucleated Red Blood Cells 0.0 % Prothrombin Time 10.8 9.3-11.8 sec Prothrombin Time INR 1.02 0.9-1.15 Activated Partial Thromboplast Time 23.6 L 24.5-34.5 SEC D-Dimer, Quantitative 0.35 0.0-0.49 mg/L FEU Sodium Level 140 136-145 mmol/L Potassium Level 4.5 3.5-5.1 mmol/L Chloride Level 101 98-107 mmol/L Carbon Dioxide Level 19 L 20-31 mmol/L Anion Gap 20 H 5-15 Blood Urea Nitrogen 22 9-23 mg/dL Creatinine 1.17 0.700-1.30 mg/dL Glomerular Filtration Rate Calc 74 >90 mL/min BUN/Creatinine Ratio 18.8 10.0-20.0 Serum Glucose 199 H 74-106 mg/dL Hemoglobin A1c 6.6 H <5.7 % A1C Calcium Level 11.7 H 8.7-10.4 mg/dL Magnesium Level 1.7 1.6-2.6 mg/dL Total Bilirubin 0.3 0.2-1.0 mg/dL Aspartate Amino Transferase (AST) 20 13-40 U/L Alanine Aminotransferase (ALT) 16 7-40 U/L Alkaline Phosphatase 92 46-116 U/L Total Protein 7.6 5.7-8.2 g/dL Albumin 5.1 H 3.2-4.8 g/dL Current Medications Medications (Trade) Dose Ordered Sig/Jk Route Start Time Stop Time Status Last Admin Aspirin 325 mg ONCE ONCE PO 07/20/24 15:30 07/20/24 15:31 DC 07/20/24 15:50 Nitroglycerin (Ntrostat Sublingual) 0.4 mg ONCE ONCE SL 07/20/24 15:30 07/20/24 15:31 DC 07/20/24 15:51 Nitroglycerin (Ntrostat Sublingual) 0.4 mg ONCE ONCE SL 07/20/24 16:15 07/20/24 16:16 DC 07/20/24 16:[address] [address] Ph: [phone] DIAGNOSTIC IMAGING Diagnostic Imaging Report : [id number] Signed PATIENT: ANGELICA BYERS ACCT: [id number] UNIT: [id number] : 1970 LOC: ER ROOM / BED: / AGE / SEX: 53 / M ADM STATUS: REG ER SERVICE 1441 ORDERING PHYSICIAN: CHERYL FAUSTIN DO PROCEDURE(s): CXRP - CHEST PORTABLE REASON: cp ORDER NUMBER(s): [id number], ACCESSION NUMBER(s): [id number] CHEST RADIOGRAPH Indication: cp Technique: Single frontal view of the chest was obtained COMPARISON: XY CHEST PORTABLE on DOS: 11/17/23, CHEST PORTABLE on DOS: 09/05/19, CHEST PORTABLE on DOS: 09/04/19 FINDINGS: Lines and Tubes: None Lungs: Clear Pleura: No effusion. No pneumothorax. Cardiomediastinal contours: Unremarkable Bones: Unremarkable IMPRESSION: No acute disease. ATED BY: JOSH VELIZ MD DICTATED DATE/TIME: 07/20/24 1530 SIGNED BY: JOSH VELIZ MD SIGNED DATE/TIME: 07/20/24 1530 CC: Patient Education/Counseling: Diagnosis, Treatment Family Education/Counseling: No Family Present Comments MDM: Patient presented with the above HPI.----- chest pain -workup was initiated. patient was found with the above mentioned diagnosis. the following medications were ordered: nitroglycerin x 2 aspirin 325, the following tests were ordered: CT angio chest with contrast, EKG x3, troponin x3, UA, d-dimer, PTPTT, magnesium, CBC,chest x-ray, CMP, Patient ED course and VS have been stabilized. Patient has been reassessed in the ED and remained in a stable condition. Patient has been observed in the ED adequate length of time to insure improvement/stability. Escalation of care considered: Consideration of escalation to observation or admission. patient was ADMITTED to the medicine team for further evaluation and treatment of their presentation. All the reports of any imaging studies that were ordered by myself were reviewed by myself. Additional Information Departure 1 Departure Time of Disposition: 15:33 Impression: Primary Impression: Chest pain Disposition: ADMITTED INPATIENT Admit to: Tele Condition: Guarded Discharged With: Self Heart Score Heart Score: Heart Score Response (Comments) Value History Moderate Suspicious 1 Age 45-64 1 Risk Factors >3 or Hx ASHD 2 Troponin Normal limit 0 Total 4 I personally scribed for CHERYL FAUSTIN DO ([facility]) on 07/20/24 at 17:24. Electronically submitted by Olivier Posey ([facility]). I personally scribed for CHERYL FAUSTIN DO ([facility]) on 07/20/24 at 17:27. Electronically submitted by Olivier Posey ([facility]). I personally scribed for CHERYL FAUSTIN DO ([facility]) on 07/20/24 at 21:48. Electronically submitted by Olivier Posey ([facility] CHERYL FAUSTIN DO Jul 20, 2024 15:32
[2024-07-20 15:38] LABS: Albumin 5.1 g/dL (3.2-4.8); Calcium 11.7 mg/dL (8.7-10.4); Carbon Dioxide 19 mmol/L (20-31); Glucose 199 mg/dL (74-106)
[2024-07-20] MEDS: ASPirin 325 MG TAB PO ONE (15:50)
[2024-07-20] MEDS: NITROGLYCERIN 0.4 MG SL TAB SL ONE ×2 (15:51→16:19)
[2024-07-20] MEDS ORDERED: DEXTROSE (50%) 50ML SYRG IV PRN (16:15)
[2024-07-20 16:35] LABS: INR 1.02 (0.9-1.15); Partial Thromboplastin Time 23.6 SEC (24.5-34.5); Prothrombin Time 10.8 sec (9.3-11.8)
[2024-07-20] MEDS ORDERED: NITROGLYCERIN 0.4 MG SL TAB SL PRN ×2 (16:45)
[2024-07-20] MEDS ORDERED: ACETAMINOPHEN 325 MG TAB PO PRN (16:45)
[2024-07-20] MEDS ORDERED: MORPHINE SULFATE INJ 2 MG/ml SYRG IV PRN (16:45)
[2024-07-20] MEDS: MAALOX PLUS or MAALOX 30 ML PO ONE (16:45)
--- NOTE | 2024-07-20 17:01 | DVHHP2 ---
History of Present Illness Reason for Visit: chest pain History of Present Illness Mekhi Desai is a 53YO M with pmHx of HTN, HLD, DM, COPD, depression, anxiety, schizophrenia, umbilical hernia, morbid obesity, oxygen dependent at home using 3LNC who presents to the ED for chest pain, N/V, and shortness of breath x 1 day. Patient reports at 0600 this morning the chest pain woke him up which felt stabbing in nature, constant, 10/10 pain and radiated to his left arm. Patient reports there are no aggravating factors but that taking a hot shower helps relieve the chest pain. Patient reports he is allergic to PCN and reglan which causes swelling. Patient reports he is compliant with his medications. Upon examination, patient was noted to have left the lobby area and came back in huffing and puffing, when asked he reported he just went outside to smoke a cigarette. Patient denies fever, chills, diarrhea, BARBER, abdominal pain, numbness, tingling, dizziness, or lightheadedness. Cardiovascular: HTN, hyperipidemia Pulmonary: COPD Psych: Anxiety, Depression, Schizophrenia Endocrine: Diabetes Past Medical History Umbilical hernia Past Surgical History: None Family History: Cancer, DM Smoke: <1 pack per day ALCOHOL: none Drugs: None Lives: Roommate Domestic Violence: Neg Review of Systems Constitutional: No: Fever, Chills, Sweats, Weakness, Malaise, Other Eyes: No: Pain, Vision change, Conjunctivae inflammation, Eyelid inflammation, Other, Redness ENT: No: Ear pain, Ear discharge, Nose pain, Nose discharge, Nose congestion, Mouth pain, Mouth swelling, Throat pain, Throat swelling, Other Respiratory: Shortness of breath; No: Cough, Dry, SOB with excertion, Wheezing, Hemoptysis, Pleuritic Pain, Sputum, Wheezing, Other Cardiovascular: Chest Pain Gastrointestinal: Nausea, Vomiting; No: Abdominal Pain, Diarrhea, Constipation, Melena, Hematochezia, Other Genitourinary: No Dysuria, No Frequency, No Incontinence, No Hematuria, No Ret ention, No Other Musculoskeletal: arm pain; No: other, neck pain, shoulder pain, back pain, hand pain, leg pain, foot pain Skin: No: Rash, Lesions, Jaundice, Bruising, Other Neurological: No: Weakness, Numbness, Incoordination, Change in speech, Confusion, Seizures, Other Allergies: Coded Allergies: Metoclopramide (Verified Allergy, Unknown, 11/06/23) Penicillins (Verified Allergy, Unknown, 11/06/23) Medications Current Medications Medications Dose Ordered Sig/Kj Route Start Time Stop Time Status Last Admin Dose Admin Diagnostic Test (Pha) 1 strip IQ4HR 07/20/24 20:00 UNV Insulin Human Regular IQ4HR SC 07/20/24 20:00 UNV Dextrose 50 ml UD PRN IV 07/20/24 16:15 UNV Exam Vital Signs Vital Signs Date Time Temp Pulse Resp B/P (MAP) Pulse Ox O2 Delivery O2 Flow Rate FiO2 07/20/24 16:19 153/90 07/20/24 16:12 98.1 92 20 98.1 07/20/24 15:24 97 07/20/24 15:24 Room Air General Appearance: Alert, Oriented X3, Cooperative, moderate distress HEENT: Atraumatic, PERRLA, EOMI, Mucous membr. moist/pink Respiratory: Normal air movement Cardiovascular: Normal S1, Normal S2, No murmurs Abdominal: Normal bowel sounds, Soft, No tenderness, No hepatospenomegaly, No masses Extremities: No clubbing, No cyanosis, No edema, Normal pulses, No tenderness/swelling Skin: No rashes, No breakdown, No significant lesion Neuro: Normal gait, Normal speech, Strength at 5/5 X4 ext, Normal tone, Sensation intact Psych/Mental Status: Mental status NL, Mood NL Labs/Xrays Labs Test 07/20/24 15:46 07/20/24 14:49 Range/Units White Blood Count 13.8 H 4.4-10.8 10^3/uL Red Blood Count 5.11 4.5-5.90 10^6/uL Hemoglobin 15.1 13.5-17.5 g/dL Hematocrit 44.7 41.0-53.0 % Mean Corpuscular Volume 87.5 80.0-100.0 fL Mean Corpuscular Hemoglobin 29.6 28.0-32.0 pg Mean Corpuscular Hemoglobin Concent 33.8 32.0-36.0 g/dL Red Cell Distribution Width 14.0 11.8-14.3 % Platelet Count 375 140-450 10^3/uL Mean Platelet Volume 9.6 6.9-10.8 fL Neutrophils (%) (Auto) 80.2 H 37.0-80.0 % Lymphocytes (%) (Auto) 14.2 10.0-50.0 % Monocytes (%) (Auto) 4.9 0.0-12.0 % Eosinophils (%) (Auto) 0.2 0.0-7.0 % Basophils (%) (Auto) 0.5 0.0-2.0 % Neutrophils # (Auto) 11.1 H 1.6-8.6 10 ^3/uL Lymphocytes # (Auto) 2.0 0.4-5.4 10 ^3/uL Monocytes # (Auto) 0.7 0-1.3 10 ^3/uL Eosinophils # (Auto) 0 0-0.8 10 ^3/uL Basophils # (Auto) 0.1 0-0.2 10 ^3/uL Nucleated Red Blood Cells 0.0 % Sodium Level 140 136-145 mmol/L Potassium Level 4.5 3.5-5.1 mmol/L Chloride Level 101 98-107 mmol/L Carbon Dioxide Level 19 L 20-31 mmol/L Anion Gap 20 H 5-15 Blood Urea Nitrogen 22 9-23 mg/dL Creatinine 1.17 0.700-1.30 mg/dL Glomerular Filtration Rate Calc 74 >90 mL/min BUN/Creatinine Ratio 18.8 10.0-20.0 Serum Glucose 199 H 74-106 mg/dL Calcium Level 11.7 H 8.7-10.4 mg/dL Magnesium Level 1.7 1.6-2.6 mg/dL Total Bilirubin 0.3 0.2-1.0 mg/dL Aspartate Amino Transferase (AST) 20 13-40 U/L Alanine Aminotransferase (ALT) 16 7-40 U/L Alkaline Phosphatase 92 46-116 U/L Total Protein 7.6 5.7-8.2 g/dL Albumin 5.1 H 3.2-4.8 g/dL CHEST RADIOGRAPH Indication: cp Technique: Single frontal view of the chest was obtained COMPARISON: XY CHEST PORTABLE on DOS: 11/17/23, CHEST PORTABLE on DOS: 09/05/19, CHEST PORTABLE on DOS: 09/04/19 FINDINGS: Lines and Tubes: None Lungs: Clear Pleura: No effusion. No pneumothorax. Cardiomediastinal contours: Unremarkable Bones: Unremarkable IMPRESSION: No acute disease. INDICATION: cp COMPARISON: No prior cTAs of the chest for comparison. Findings: Pulmonary artery: Normal caliber of the pulmonary artery. No large central or large segmental pulmonary embolism. Lower neck: Normal thyroid. Lungs: No focal consolidation, pulmonary mass, or suspicious pulmonary nodule. Inadequate opacification of pulmonary artery to exclude pulmonary emboli. ( Needed 266 HU: 172.66 achieved.) Heart/Vascular Structures: No filling defects in the right or left pulmonary arteries or saddle embolus. Normal heart size. Normal caliber and enhancement of the aorta. Lymph Nodes: No adenopathy Pleura: No pleural effusion or significant pneumothorax. Musculoskeletal: No acute osseous abnormality. Upper abdomen: Limited portions of the upper abdomen are unremarkable. IMPRESSION: 1. Suboptimal opacification pulmonary arteries. 2. No large filling defects in the right or left pulmonary arteries. No saddle embolus seen. EXAM: CT HEAD WITHOUT CONTRAST INDICATION: FALL TECHNIQUE: CT of the head without intravenous contrast. FINDINGS: There is no evidence of acute intracranial hemorrhage, extra-axial collection, mass effect, midline shift, herniation or hydrocephalus. The ventricles, sulci and cisterns are age appropriate. The maguire-white differentiation is intact. Patchy periventricular and subcortical white matter hypoattenuation is nonspecific but may be related to small vessel ischemic disease. Minimal mucosal thickening posterior aspect of maxillary sinuses bilaterally. There is also mucosal thickening of the ethmoid and frontal sinuses bilaterally. The mastoid air cells are clear. The surrounding soft tissues and osseous structures are unremarkable. IMPRESSION: 1. No acute intracranial hemorrhage 2. No CT findings of territorial ischemia 3. No CT findings of displaced skull fracture. 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 Chronic HLD Continue home med Uncontrolled benign essential hypertension cont home medication Chronic depression/anxiety Schizophrenia Continue home meds Tobacco abuse Counseled the patient regarding smoking cessation nicotine patch FEN/PPX diet hl protonix while getting steriods Patient is ambulatory no dvt ppx Discussed plan of care with patient and nurse Home medications reconciled Admit to telemetry Plan discussed with: Patient My Orders Orders - ELISEO MARTIN Procedure Category Date Status Time Hemoglobin A1c LAB 07/20/24 In Process 16:15 Glucose Blood PHA 07/20/24 Logged (Accu-Chek Comfort 20:00 Insulin R (Human) PHA 07/20/24 Logged (Insulin R) 20:00 Dextrose 50% Syringe PHA 07/20/24 Logged 16:15 Urinalysis LAB 07/20/24 Logged 16:19 Date of Service: Jul 20, 2024 Billing Provider: ELISEO MARTIN Common Visit Codes: [id number] INP/OBS CARE (MOD) ELISEO MARTIN Jul 20, 2024 17:01
[2024-07-20] MEDS: IOHEXOL 350 MG/ML 100ML IJ ONE ×2 (17:07→18:07)
[2024-07-20] MEDS: IPRATROPIUM BROM 0.5 MG/2.5ML INH SOL NEB SCH (17:28)
[2024-07-20] MEDS: ALBUTEROL SULF 2.5 MG/0.5ML(0.5%) NEB SOLN NEB SCH (17:28)
[2024-07-20] MEDS: MORPHINE SULFATE 4 MG/ML SYR/VIAL IV PRN (17:29)
[2024-07-20] MEDS ORDERED: hydrOXYzine 25 MG TAB or CAP PO PRN (17:30)
[2024-07-20] MEDS: ONDANSETRON HCL 4 MG/2 ML VIAL IV PRN (18:43)
[2024-07-20] MEDS: DOXYCYCLINE 100MG/250ML 250 ML IV SCH (18:45)
[2024-07-20 19:01] VITALS: PULSE 90; RESP 25; O2SAT 95
--- NOTE | 2024-07-20 19:01 | ECG ---
[facility] Test Date: 2024-07-20 Test Time: 15:38:06 Pat Name: ANGELICA BYERS Department: ER Room: 0280T Gender: M Ferry Hand: LORENE : 1970 Requested By: CHERYL FAUSTIN Order Number: [id number] Reading MD: Cassius Rubin Measurements Intervals [place] Rate: 91 P: 62 SC: 153 QRS: 59 QRSD: 110 T: 28 QT: 376 QTc: 463 Interpretive Statements Sinus rhythm Low voltage, precordial leads Minimal ST depression, inferior leads Electronically Signed On 07-26-2024 9:58:10 PST by Cassius Rubin Please click the below link to view image of tracing.
--- NOTE | 2024-07-20 19:02 | ECG ---
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
[2024-07-20 19:30] VITALS: PULSE 95; RESP 22; O2SAT 95
--- NOTE | 2024-07-20 19:33 | DVH ---
EXAM: CT HEAD WITHOUT CONTRAST INDICATION: FALL TECHNIQUE: CT of the head without intravenous contrast. Radiation Dose Information: CT Dose: CTDI volume is 70.2 mGy. Dose-length product is 2531.92 mGy*cm The dose indicators for CT are the volume Computed Tomography (CT) Dose Index (CTDIvol) and the Dose Length Product (DLP), and are measured in units of mGy and mGy-cm, respectively. These indicators are not patient dose, but values generated from the CT scanner acquisition factors. The report includes radiation exposure data for exposures received during this examination. COMPARISON: HEAD WITHOUT CONTRAST on DOS: 03/18/22, HEAD WITHOUT CONTRAST on DOS: 09/03/19 FINDINGS: There is no evidence of acute intracranial hemorrhage, extra-axial collection, mass effect, midline s hift, herniation or hydrocephalus. The ventricles, sulci and cisterns are age appropriate. The maguire-white differentiation is intact. Patchy periventricular and subcortical white matter hypoattenuation is nonspecific but may be related to small vessel ischemic disease. Minimal mucosal thickening posterior aspect of maxillary sinuses bilaterally. There is also mucosal thickening of the ethmoid and frontal sinuses bilaterally. The mastoid air cells are clear. The surrounding soft tissues and osseous structures are unremarkable. IMPRESSION: 1. No acute intracranial hemorrhage 2. No CT findings of territorial ischemia 3. No CT findings of displaced skull fracture.
[2024-07-20 19:45] LABS: Urine Bacteria None Seen /hpf (None Seen)
--- NOTE | 2024-07-20 19:56 | DVH ---
INDICATION: cp COMPARISON: No prior cTAs of the chest for comparison. TECHNIQUE: Multidetector CTA of the chest was performed of the chest with 100 cc of intravenous contr ast. PULMONARY ANGIOGRAPHY PROTOCOL was utilized using a bolus-tracking technique centered on the gricelda n pulmonary artery. Axial, coronal and sagittal multiplanar and MIP reformats were performed. Radiation Dose Information: CT Dose: CTDI volume is 123.39 mGy. Dose-length product is 2531.92 mGy*cm Omnipaque 350: 100 mL The dose indicators for CT are the volume Computed Tomography (CT) Dose Index (CTDIvol) and the Dose Length Product (DLP), and are measured in units of mGy and mGy-cm, respectively. These indicators are not patient dose, but values generated from the CT scanner acquisition factors. The report includes radiation exposure data for exposures received during this examination. Findings: Pulmonary artery: Normal caliber of the pulmonary artery. No large central or large segmental pulmo nary embolism. Lower neck: Normal thyroid. Lungs: No focal consolidation, pulmonary mass, or suspicious pulmonary nodule. Inadequate opacificati on of pulmonary artery to exclude pulmonary emboli. ( Needed 266 HU: 172.66 achieved.) Heart/Vascular Structures: No filling defects in the right or left pulmonary arteries or saddle embol us. Normal heart size. Normal caliber and enhancement of the aorta. Lymph Nodes: No adenopathy Pleura: No pleural effusion or significant pneumothorax. Musculoskeletal: No acute osseous abnormality. Upper abdomen: Limited portions of the upper abdomen are unremarkable. IMPRESSION: 1. Suboptimal opacification pulmonary arteries. 2. No large filling defects in the right or left pulmonary arteries. No saddle embolus seen.
[2024-07-20 20:07] VITALS: BP 207/108; PULSE 19; TEMP 98.8; O2SAT 99
[2024-07-20] MEDS: InsuLIN REG 1unit/0.01ml Soln (100units/ml) SC SCH (20:15)
[2024-07-20] MEDS: ACCU-CHEK COMFORT CURVE STRIP VI SCH (20:15)
[2024-07-20 20:17] LABS: Urine Blood 1+ /uL (Negative); Urine Clarity Clear (Clear); Urine Color Light-Yellow (Yellow); Urine Protein, UAD 2+ (Negative); Urine Specific Gravity 1.043 (1.001-1.035); Urine Sperm PRESENT /hpf (None Seen); Urine Urobilinogen Normal (Negative); Urine WBC 6 /hpf (0 - 3); Urine pH 5.5 (5.0-9.0)
[2024-07-20 21:00] VITALS: BP 134/72; PULSE 99; RESP 16; TEMP 98; O2SAT 95
[2024-07-20] MEDS ORDERED: SERTRALINE HCL 50 MG TAB PO SCH (22:00)
[2024-07-20 22:31] VITALS: BP 134/72; PULSE 85; PULSE 99; RESP 16; TEMP 98; O2SAT 95; O2SAT 96
[2024-07-20] MEDS: PANTOPRAZOLE 40 MG/10 ML VIAL INJ IV SCH (22:39)
[2024-07-20] MEDS: predniSONE 20 MG TAB PO SCH (22:40)
[2024-07-20] MEDS: ATORVASTATIN 20 MG TAB PO SCH (22:41)
[2024-07-20] MEDS: ZOLPIDEM TARTRATE 5 MG TAB PO PRN (22:42)
[2024-07-20] MEDS: MONTELUKAST SODIUM 10 MG TAB PO SCH (22:43)
[2024-07-20] MEDS: busPIRone HCL 10 MG TAB PO SCH (22:43)
[2024-07-20] MEDS ORDERED: QUET200T4 PO (23:13)
[2024-07-21] VITALS (15 sets, daily range): BP systolic 108–155; BP diastolic 61–105; PULSE 77–89; RESP 12–20; TEMP 97.9–98.6; O2SAT 93–100
[2024-07-21 06:52] LABS: Basophils # (auto) 0 10 ^3/uL (0-0.2); Basophils % (auto) 0.3 % (0.0-2.0); Eosinophils # (auto) 0 10 ^3/uL (0-0.8); Hematocrit 42.9 % (41.0-53.0); Hemoglobin 14.4 g/dL (13.5-17.5); Lymphocytes # (auto) 1.5 10 ^3/uL (0.4-5.4); Lymphocytes % (auto) 11.3 % (10.0-50.0); Mean Corpuscular Hemoglobin 29.4 pg (28.0-32.0); Mean Corpuscular Hgb Conc. 33.6 g/dL (32.0-36.0); Mean Corpuscular Volume 87.7 fL (80.0-100.0); Monocytes # (auto) 0.9 10 ^3/uL (0-1.3); Monocytes % (auto) 6.5 % (0.0-12.0); Neutrophils % (auto) 81.9 % (37.0-80.0); Platelet Count (auto) 325 10^3/uL (140-450); Red Blood Cells 4.89 10^6/uL (4.5-5.90); Red Cell Distribution Width 14.8 % (11.8-14.3); White Blood Cell 13.4 10^3/uL (4.4-10.8)
[2024-07-21 07:11] LABS: Alanine Aminotransferase 12 U/L (7-40); Alkaline Phosphatase 84 U/L (46-116); Anion Gap 12 (5-15); BUN/Creatinine Ratio 18.2 (10.0-20.0); Bilirubin, Total 0.3 mg/dL (0.2-1.0); Blood Urea Nitrogen 20 mg/dL (9-23); Carbon Dioxide 24 mmol/L (20-31); Chloride 104 mmol/L (98-107); Potassium 3.8 mmol/L (3.5-5.1); Sodium 140 mmol/L (136-145); Total Protein 7.8 g/dL (5.7-8.2)
[2024-07-21 07:18] LABS: Albumin 5.1 g/dL (3.2-4.8); Aspartate Aminotransferase 10 U/L (13-40); Calcium 11.2 mg/dL (8.7-10.4); Glucose 135 mg/dL (74-106)
[2024-07-21] MEDS ORDERED: PATIENTS OWN MEDICATION (Aspirin (Aspirin Low Dose) 1 TAB) PO SCH (10:00)
[2024-07-21] MEDS: NICOTINE 7MG/24HR TOPICAL PATCH TD SCH (10:00)
[2024-07-21] MEDS: QUETIAPINE FUMARATE 200 MG PO SCH (10:00)
[2024-07-21] MEDS ORDERED: LOSARTAN POTASSIUM 50 MG TAB PO SCH (10:00)
[2024-07-21] MEDS: NIFEdipine ER 30 MG TAB PO SCH (10:39)
[2024-07-21] MEDS: ASPirin 81 mg TAB PO SCH (10:39)
[2024-07-21] MEDS: LOSARTAN POTASSIUM 50 MG TAB PO SCH (10:40)
[2024-07-21] MEDS: DOCUSATE SOD 100 MG CAP PO SCH (10:40)
[2024-07-21] MEDS: hydroCHLOROthiazide 25 MG TAB PO SCH (10:41)
[2024-07-21] MEDS: CHOLECALCIFEROL (VITD3) 1,000UNIT=25mCg TAB PO SCH (10:46)
--- NOTE | 2024-07-21 11:09 | DVHINCON2 ---
Date Seen: Jul 21, 2024 Referring Physician Skylar Reason for Consultation Chest pain History of Present Illness 53-year-old male with PMH for HTN, HLD, dm, COPD on home O2 as needed, continued tobacco use, anxiety, umbilical hernia, presents to the hospital with abdominal pain radiating to his chest area, and/V, and shortness of breath. Patient states pain started in the cremator, unprovoked, and noted to be left upper quadrant abdominal area near hernia. Patient states pain at times radiates up to his left chest shoulder area, intermittent, pressure in nature. Upon evaluation in the ER patient noted to have negative troponins trending x3. Patient states it feels at times like when he had pancreatitis. Patient also noted to have hypertensive urgency with BP 207/108. EKG reviewed and shows normal sinus rhythm at 78 beats per minute. Nonspecific T-wave abnormality. Past Medical History HTN HLD COPD As needed home O2 use Tobacco abuse Psych disorder Diabetes Past Surgical History Denies previous cardiac surgeries Family History: Diabetes mellitus G8 MOTHER Social History Denies illicit drug use. Patient continues to smoke though states has cut down extensively to about 3-4 cigarettes a day. Occasional social alcohol use with 1 or 2 drinks. Allergies: Coded Allergies: Metoclopramide (Verified Allergy, Unknown, 11/06/23) Penicillins (Verified Allergy, Unknown, 11/06/23) Home Meds Active Scripts Pantoprazole Sodium Sesquihydr (Protonix) 40 Mg Tab, 40 MG PO DAILY, #30 TAB Prov:GENARO MORRISON MD 01/30/24 Reported Medications Quetiapine Fumerate (Seroquel Xr) 200 Mg Tab, 1 TAB PO QPM, #30 TAB 1 Refill 07/20/24 Irbesartan (Avapro) 300 Mg Tab, 150 MG PO DAILY for 30 Days, #30 04/23/24 Nifedipine (Nifedipine Er) 30 Mg Tab, 1 TAB PO DAILY for 90 Days, #90 04/23/24 Cholecalciferol (Vitamin D-3 Super Strengt) 2,000 Unit Tab, 1 TAB PO DAILY for 90 Days, #90 04/23/24 Divalproex Sodium (Divalproex Sodium) 500 Mg Tab, 1 TAB PO TID for 90 Days, #270 04/23/24 Hydrochlorothiazide (Hydrochlorothiazide) 25 Mg Tab, 1 TAB PO DAILY for 90 Days, #90 04/23/24 Sertraline Hcl (Sertraline Hcl) 50 Mg Tab, 100 MG PO BID for 90 Days, #180 04/23/24 Varenicline Tartrate (Varenicline Starti... 0.5 mg X 11 & 1 mg X 42) 1 Tab Tab, TAB PO UD for 30 Days, #53 04/23/24 Oxycodone W/ Acetaminophen (Apap/Oxycodone) 1 Tab Tab, 1 TAB PO QID for 30 Days, #120 04/23/24 Beclomethasone Dipropionate (Qvar Redihaler) 80 Mcg/Act Aer, MCG INH UD for 30 Days, #120 04/23/24 Hydroxyzine Hcl (Hydroxyzine Hcl) 50 Mg Tab, 1 TAB PO BID PRN for ANXIETY for 90 Days, #180 04/23/24 Buspirone Hcl (Buspirone Hcl) 15 Mg Tab, 30 MG PO BID for 90 Days, #180 04/23/24 Albuterol Sulfate (Albuterol Sulfate Hfa) 108 Mcg/Act Aer, 2 PUFF INH Q6HR for 24 Days, #8.5 04/23/24 Metformin Hydrochloride (Metformin Hcl) 1,000 Mg Tab, 1 TAB PO BID for 90 Days, #180 04/23/24 Quetiapine Fumarate (Quetiapine Fumarate ER) 200 Mg Tab, 1 TAB PO DAILY for 90 Days, #90 04/23/24 Oxycodone Hcl (OXYCODONE HCL) 5 Mg Tb, 5 MG PO TID for updated dose, TAB 04/23/24 Montelukast Sodium (Singulair) 5 Mg Chw, 2 TAB PO DAILY, #30 TAB 5 Refills 09/03/19 Losartan Potassium (Losartan Potassium) 50 Mg Tab, 50 MG PO DAILY for 30 Days, MG 09/03/19 Rosuvastatin Calcium (Crestor) 20 Mg Tab, 20 MG PO DAILY, TAB 09/03/19 Current Medications Current Medications Medications (Trade) Dose Ordered Sig/Kj Route PRN Reason Start Time Stop Time Status Last Admin Diagnostic Test (Pha) (Accu-Chek Comfort Curve T) 1 strip IQ4HR 07/20/24 20:00 07/21/24 08:08 Insulin Human Regular (InsuLIN R) IQ4HR SC 07/20/24 20:00 07/21/24 08:11 Dextrose 50 ml UD PRN IV Blood Sugar LESS THAN 60 07/20/24 16:15 Albuterol (Ventolin Medneb) 2.5 mg Q6HWA [facility] 07/20/24 18:00 07/21/24 06:32 Ipratropium [place] (Atrovent Medneb) 0.5 mg Q6HWA [facility] 07/20/24 18:00 07/21/24 06:32 Prednisone 20 mg BID PO 07/20/24 22:00 07/21/24 10:38 Nicotine (Nicoderm 7MG/ 24HR) 1 patch DAILY TD 07/21/24 10:00 Aspirin 81 mg DAILY PO 07/21/24 10:00 07/21/24 10:39 Morphine Sulfate 2 mg Q30MP PRN IV FOR CHEST PAIN 07/20/24 16:45 07/20/24 18:46 Acetaminophen (Tylenol Tablet) 650 mg Q6HP PRN PO MILD PAIN (1-3 PAIN SCALE) 07/20/24 16:45 Zolpidem Tartrate (Ambien) 5 mg QHSP PRN PO FOR INSOMNIA 07/20/24 16:45 07/20/24 22:42 Lorazepam (Ativan Tablet) 0.5 mg Q6HP PRN PO ANXIETY 07/20/24 16:45 Docusate Sodium (Colace Capsule) 100 mg DAILY PO 07/21/24 10:00 07/21/24 10:40 Nitroglycerin (Ntrostat Sublingual) 0.4 mg Q5MINP PRN SL FOR CHEST PAIN 07/20/24 16:45 Ondansetron HCl (Zofran) 4 mg Q4HP PRN IV NAUSEA / VOMITING 07/20/24 16:45 07/20/24 18:43 Nitroglycerin (Ntrostat Sublingual) 0.4 mg Q5MINP PRN SL FOR CHEST PAIN 07/20/24 16:45 07/20/24 17:09 DC Morphine Sulfate 2 mg Q30M PRN IV FOR CHEST PAIN 07/20/24 16:45 07/20/24 17:09 DC Doxycycline Hyclate 250 ml @ 125 mls/hr Q12H IV 07/20/24 18:00 07/20/24 18:45 Pantoprazole Sodium (Protonix) 40 mg BID IV 07/20/24 22:00 07/21/24 10:47 Hydrochlorothiazide (hydroCHLOROthiazide TABLET) 25 mg DAILY PO 07/21/24 10:00 07/21/24 10:41 Losartan Potassium (Cozaar Tablet) 50 mg DAILY PO 07/21/24 10:00 07/21/24 10:40 Nifedipine (Procardia Xl (Time-Release)) 30 mg DAILY PO 07/21/24 10:00 07/21/24 10:39 Sertraline HCl (Zoloft) 100 mg BID PO 07/20/24 22:00 Hold Patient Own Medication 1 tab DAILY PO 07/21/24 10:00 07/20/24 17:09 DC Buspirone HCl (Buspar Tablet) 30 mg BID PO 07/20/24 22:00 07/21/24 10:38 Cholecalciferol (Vitamin D3 Tablet) 2,000 unit DAILY PO 07/21/24 10:00 07/21/24 10:46 Divalproex Sodium (Depakote "Dr" Tablet) 500 mg TID PO 07/20/24 22:00 07/21/24 06:01 Hydroxyzine Pamoate (Vistaril Oral) 50 mg BID PRN PO ANXIETY 07/20/24 17:30 Losartan Potassium (Cozaar Tablet) 50 mg DAILY PO 07/21/24 10:00 07/20/24 17:32 DC Montelukast Sodium (Singulair Tablet) 10 mg HS PO 07/20/24 22:00 07/20/24 22:43 Patient Own Medication 1 tab DAILY PO 07/21/24 10:00 Atorvastatin Calcium (Lipitor) 40 mg HS PO 07/20/24 22:00 07/20/24 22:41 Review of Systems Constitutional: No: Fever, Chills, Sweats, Weakness, Malaise, Other Eyes: No: Pain, Vision change, Conjunctivae inflammation, Eyelid inflammation, Other, Redness ENT: No: Ear pain, Ear discharge, Nose pain, Nose discharge, Nose congestion, Mouth pain, Mouth swelling, Throat pain, Throat swelling, Other Respiratory: No: , Dry, Shortness of breath, , Wheezing, Hemoptysis, Pleuritic Pain, Sputum, Wheezing, Other positive: Cough, SOB with exertion Cardiovascular: ; No: Chest Pain Palpitations, Orthopnea, Paroxysmal Noc. Dyspnea, Edema, Lt Headedness, Other Gastrointestinal: No: , Vomiting, , Diarrhea, Constipation, Melena, Hematochezia, Other positive: Abdominal Pain, Nausea Genitourinary: No Dysuria, No Frequency, No Incontinence, No Hematuria, No Retention, No Other Musculoskeletal: neck pain; No: other, shoulder pain, arm pain, back pain, hand pain, leg pain, foot pain Skin: No: Rash, Lesions, Jaundice, Bruising, Other Neurological: Other (Dizziness, headache.); No: Weakness, Numbness, Incoordination, Change in speech, Confusion, Seizures Vital Signs Vital Signs Date Time Temp Pulse Resp B/P (MAP) Pulse Ox O2 Delivery O2 Flow Rate FiO2 07/21/24 10:41 128/86 07/21/24 09:40 98.6 83 18 95 98.6 07/21/24 06:32 Room Air* 0 21 Physical Exam General appearance: Patient is well-developed, well-nourished, in no acute distress. HEENT: Exam shows: Normocephalic, atraumatic, PERRLA, EOMI Neck: Supple, no bruits Chest: Equal chest excursion bilaterally. Breath sounds rhonchi, expiratory wheezes. Heart: Rhythm: Regular rate; no murmur or gallop Abdomen: Exam shows: Soft, nontender, distended Musculoskeletal: No clubbing, no cyanosis, no lower extremity edema Dermatology: Skin warm, moist. Neurological: Exam shows: Alert and oriented x4, normal speech Available prior records, labs, EKG, rhythm strips reviewed and interpreted Labs/Diagnostic Data Labs Test 07/21/24 08:02 07/21/24 06:17 07/20/24 19:40 07/20/24 14:49 Range/Units POC Glucose 143 H 70-106 mg/dl White Blood Count 13.4 H 4.4-10.8 10^3/uL Red Blood Count 4.89 4.5-5.90 10^6/uL Hemoglobin 14.4 13.5-17.5 g/dL Hematocrit 42.9 41.0-53.0 % Mean Corpuscular Volume 87.7 80.0-100.0 fL Mean Corpuscular Hemoglobin 29.4 28.0-32.0 pg Mean Corpuscular Hemoglobin Concent 33.6 32.0-36.0 g/dL Red Cell Distribution Width 14.8 H 11.8-14.3 % Platelet Count 325 140-450 10^3/uL Mean Platelet Volume 9.3 6.9-10.8 fL Neutrophils (%) (Auto) 81.9 H 37.0-80.0 % Lymphocytes (%) (Auto) 11.3 10.0-50.0 % Monocytes (%) (Auto) 6.5 0.0-12.0 % Eosinophils (%) (Auto) 0.0 0.0-7.0 % Basophils (%) (Auto) 0.3 0.0-2.0 % Neutrophils # (Auto) 11.0 H 1.6-8.6 10 ^3/uL Lymphocytes # (Auto) 1.5 0.4-5.4 10 ^3/uL Monocytes # (Auto) 0.9 0-1.3 10 ^3/uL Eosinophils # (Auto) 0 0-0.8 10 ^3/uL Basophils # (Auto) 0 0-0.2 10 ^3/uL Nucleated Red Blood Cells 0.0 % Sodium Level 140 136-145 mmol/L Potassium Level 3.8 3.5-5.1 mmol/L Chloride Level 104 98-107 mmol/L Carbon Dioxide Level 24 20-31 mmol/L Anion Gap 12 5-15 Blood Urea Nitrogen 20 9-23 mg/dL Creatinine 1.10 0.700-1.30 mg/dL Glomerular Filtration Rate Calc 79 >90 mL/min BUN/Creatinine Ratio 18.2 10.0-20.0 Serum Glucose 135 H 74-106 mg/dL Calcium Level 11.2 H 8.7-10.4 mg/dL Total Bilirubin 0.3 0.2-1.0 mg/dL Aspartate Amino Transferase (AST) 10 L 13-40 U/L Alanine Aminotransferase (ALT) 12 7-40 U/L Alkaline Phosphatase 84 46-116 U/L Troponin I High Sensitivity 20 </=54 ng/L Total Protein 7.8 5.7-8.2 g/dL Albumin 5.1 H 3.2-4.8 g/dL Urine Color Light-yellow Yellow Urine Clarity Clear Clear Urine pH 5.5 5.0-9.0 Urine Specific Lenora 1.043 H 1.001-1.035 Urine Protein 2+ H Negative Urine Ketones 3+ H Negative Urine Blood 1+ H Negative /uL Urine Nitrite Negative Negative Urine Bilirubin Negative Negative Urine Urobilinogen Normal Negative mg/dL Urine Leukocyte Esterase Negative Negative /uL Urine RBC 2 0 - 3 /hpf Urine WBC 6 0 - 3 /hpf Urine Squamous Epithelial Cells None seen <5 /hpf Urine Bacteria None seen None Seen /hpf Urine Sperm Present None Seen /hpf Urine Glucose 2+ H Normal mg/dL Prothrombin Time 10.8 9.3-11.8 sec Prothrombin Time INR 1.02 0.9-1.15 Activated Partial Thromboplast Time 23.6 L 24.5-34.5 SEC D-Dimer, Quantitative 0.35 0.0-0.49 mg/L FEU Hemoglobin A1c 6.6 H <5.7 % A1C Magnesium Level 1.7 1.6-2.6 mg/dL Assessment Chest Pain COPD Abdominal Pain Hypertensive Urgency HLD Tobacco abuse Psych disorder Plan/Recommendation * Chest pain atypical. Troponins negative. EKG negative for acute ischemic changes. Normal EF on recent echo. ACS ruled out. Of note patient had normal recent stress test with Dr. Morrow element osmany for preop workup within 1 week. * Follow up lipase. * Continue on current blood pressure medication regimen, BP stable, continue trending. Titrate as tolerated. * Smoking cessation advised * On bronchodilators and steroids. Continue management per primary team. * Continue statin Case Discussed with Dr Vazquez. Chest pain atypical. Troponins negative. EKG negative for acute ischemic changes. Recent stress test normal per patient. Patient was getting preop testing for abdominal hernia repair in August. ACS ruled out. Normal EF on recent echo. Possible abdominal origin. There is no further cardiac work-up indicated at this time. Recommend follow up with patient's compounder Dr. Morrow on osmany upon discharge. Thank you for allowing us to participate in this patient's care. Will sign off. Critical care, time spent: 40 minutes This medical document was created using an electronic medical record system with voice recognition software and computerized dictation system. Although this document has been carefully reviewed, there might still be some phonetic and typographical errors. Occasional wrong-word or ``sound-alike substitutions may have occurred due to the inherent limitations of voice recognition software. These areas are purely typographical due to imperfections of the software programs and do not reflect any compromise in the patient's medical care. Please read the chart carefully and recognize, using context, where these substitutions have occurred. Plan discussed with: Patient Date of Service: Jul 21, 2024 Billing Provider: BRUNILDA FIELDS Cardiology Common Codes: [id number] INP/OBS CARE (High), [id number] CARE 30-74 MIN BRUNILDA FIELDS Jul 21, 2024 11:09
[2024-07-21] MEDS: HYDROcodone-ACET 10/325MG TAB PO PRN (14:31)
[2024-07-21] MEDS: methylPREDNISolone SOD SUCC 125 MG in SODIUM CHL 0.9% 100 ML IV ONE (19:15)
--- NOTE | 2024-07-21 19:19 | DVHPNRES ---
Progress Note Date Seen: Jul 21, 2024 Resident Creating Document: STEF WICK RESIDENT Medical Necessity Reason Pt with a Central, PICC or Fol: No Medical Necessity Reason chest pain radiating to his arm shortness of breath Subjective Review of Systems This is a 53YO M with pmHx significant for HTN, HLD, DM, COPD, depression, anxiety, schizophrenia, umbilical hernia, morbid obesity, oxygen dependent at home using 3LNC who presented to the ED with a chief complaints of chest pain, N/V, and shortness of breath x 1 day. According to the patient, the pain started on his left upper extremity then radiated to his left precordium and then spread across his chest before going down his abdomen. He described the nature of the pain as stabbing in nature constant rated 10/10. Her associated sometime the pain feels like squeezing pressure on his chest. Patient reported no aggravating factors but that taking a hot shower helps relieve the chest pain. Patient reports he is allergic to PCN and reglan which causes swelling. Initial vitals reveal temp: 97.5, HR: 93, RR: 25 and BP:177/104. blood work: hgb A1C 6.6, troponin: negative and ekg is negative for any ischemic changes. Chest x-ray did not reveal any acute disease. Review of systems Constitutional: Denies fever no chills no feeling of malaise HEENT: Denies headache, ear pain, ear discharges, conjunctivitis, nasal discharge throat pain Cardiovascular: Chest pain; Denies palpitation, orthopnea, PND, or pedal edema Respiratory: Shortness of breath, no cough cough, sputum production, hemoptysis, GI: nausea, vomiting; Denies diarrhea, hematemesis, hematochezia, : Denies frequency, urgency, hematuria, Endocrine: Denies unintentional weight gain or weight loss, feeling of hot flashes, Alex: Denies easy bruising, bleeding disorders, epistaxis Musculoskeletal arm pain; muscle aches Psych: No evidence of depression, khadar, suicidal ideation Past medical history: Per H and P Past surgical history: None Past social history: Disability, ADHD does not work Family history: NONcontributory Objective vital signs Vital Sign Date Time Temp Pulse Resp B/P (MAP) Pulse Ox O2 Delivery O2 Flow Rate FiO2 07/21/24 17:00 98.5 80 18 121/74 (90 94 98.5 07/21/24 11:42 Room Air* 0 21 Total Intake and Output 07/20/24 07/20/24 07/21/24 15:00 23:00 07:00 Intake Total 225 ml Output Total 0 ml Balance 225 ml medications Current Medications Medications Dose Ordered Sig/Kj Route Start Time Stop Time Status Last Admin Dose Admin Diagnostic Test (Pha) 1 strip IQ4HR 07/20/24 20:00 07/21/24 16:19 1 STRIP Insulin Human Regular IQ4HR SC 07/20/24 20:00 07/21/24 16:22 2 UNITS Dextrose 50 ml UD PRN IV 07/20/24 16:15 Albuterol 2.5 mg Q6HWA NEB 07/20/24 18:00 07/21/24 11:42 2.5 MG Ipratropium [place] 0.5 mg Q6HWA NEB 07/20/24 18:00 07/21/24 11:42 0.5 MG Prednisone 20 mg BID PO 07/20/24 22:00 07/21/24 10:38 20 MG Nicotine 1 patch DAILY TD 07/21/24 10:00 Aspirin 81 mg DAILY PO 07/21/24 10:00 07/21/24 10:39 81 MG Morphine Sulfate 2 mg Q30MP PRN IV 07/20/24 16:45 07/20/24 18:46 2 MG Acetaminophen 650 mg Q6HP PRN PO 07/20/24 16:45 Zolpidem Tartrate 5 mg QHSP PRN PO 07/20/24 16:45 07/20/24 22:42 5 MG Lorazepam 0.5 mg Q6HP PRN PO 07/20/24 16:45 Docusate Sodium 100 mg DAILY PO 07/21/24 10:00 07/21/24 10:40 100 MG Nitroglycerin 0.4 mg Q5MINP PRN SL 07/20/24 16:45 Ondansetron HCl 4 mg Q4HP PRN IV 07/20/24 16:45 07/20/24 18:43 4 MG Doxycycline Hyclate 250 ml @ 125 mls/hr Q12H IV 07/20/24 18:00 07/21/24 17:21 125 MLS/HR Pantoprazole Sodium 40 mg BID IV 07/20/24 22:00 07/21/24 10:47 40 MG Hydrochlorothiazide 25 mg DAILY PO 07/21/24 10:00 07/21/24 10:41 25 MG Losartan Potassium 50 mg DAILY PO 07/21/24 10:00 07/21/24 10:40 50 MG Nifedipine 30 mg DAILY PO 07/21/24 10:00 07/21/24 10:39 30 MG Sertraline HCl 100 mg BID PO 07/20/24 22:00 Hold Buspirone HCl 30 mg BID PO 07/20/24 22:00 07/21/24 10:38 30 MG Cholecalciferol 2,000 unit DAILY PO 07/21/24 10:00 07/21/24 10:46 2,000 UNIT Divalproex Sodium 500 mg TID PO 07/20/24 22:00 07/21/24 14:30 500 MG Hydroxyzine Pamoate 50 mg BID PRN PO 07/20/24 17:30 Montelukast Sodium 10 mg HS PO 07/20/24 22:00 07/20/24 22:43 10 MG Patient Own Medication 1 tab DAILY PO 07/21/24 10:00 Atorvastatin Calcium 40 mg HS PO 07/20/24 22:00 07/20/24 22:41 40 MG Acetaminophen/ Hydrocodone Bitart 1 tab Q6HP PRN PO 07/21/24 13:45 07/21/24 14:31 1 TAB Examination General examination- Not in acute distress HEENT: PEERLA, no acute nasal discharge Chest: S1-S2 audible, rate and rhythm regular, no murmur Lung: CTAB, no wheeze or rhonchi Abdomen: Distend, BS+, mildly tender, no organomegaly, abdominal hernia Musculoskeletal: Lower back tenderness, Lower extremity: no leg edema Neurological: cranial nerves intact, no acute dysarthria or dysphagia Psychiatry-- Normal mood and affect Skin- no acute rash or purpura laboratory and microbiology Laboratory Tests 07/21/24 06:17 Test 07/21/24 06:17 Range/Units Serum Glucose 135 H 74-106 mg/dL Problem List/Assessment/Plan Problem List/Assessment/Plan Acute chest pain R/O ACS --> Troponin negative --> EKG: negative for any ischemic chanegs --> Echo: EF 60% ( 04/2024) --> Cardiology consult UTI --> Leukocytosis --> Doxycline hyclate Acute on chronic COPD exacerbation --> home oxygen dependent 3LNC --> Mild wheezing --> Intermittent oxygen use --> Methylprednisolone 125 mg once and 40mg bid --> breathing treatment ( Albuterol and Ipratropium) Morbid Obesity --> Lifestyle modifications, diet, and exercise Uncontrolled DM2 -->HgbA1C 6.6 --> ISS and accuchecks --> diabetic education Chronic HLD --> Continue home med Uncontrolled benign essential hypertension -->continue home medication Chronic depression/anxiety Schizophrenia -Continue home meds Tobacco abuse: >80 pack years --> Counseled the patient regarding smoking cessation --> Patient decline nicotine patch --> recent CT scan per maternity nurse was unremarkable per patient Lower back pain/sciatica --> pain down the right leg --> Percocet 10/325 q6hr ( home med) Code status: full Goal of care discussed for more than 45 minute Case and plan discussed with Dr. Lopez Plan discussed with: Patient My Orders My Orders Orders - STEF WICK Procedure Category Date Status Time Hydrocodone-Acet PHA 07/21/24 In Process 10/325mg Tab ([place] 13:45 Date of Service: Jul 21, 2024 Billing Provider: CHARLOTTE LOPEZ MD Common Visit Codes: [id number] INP/OBS CARE(HIGH) STEF WICK Jul 21, 2024 19:19 CHARLOTTE LOPEZ MD Jul 22, 2024 00:01
[2024-07-22] VITALS (11 sets, daily range): BP systolic 100–133; BP diastolic 53–81; PULSE 61–90; RESP 12–20; TEMP 97.8–98.3; O2SAT 93–99
[2024-07-22] MEDS: OXYCODONE W/ ACETAMINOPHEN 5/325MG TABLET PO PRN (01:37)
[2024-07-22] MEDS: methylPREDNISolone SOD SUCC 40 MG/ML VL IV SCH (09:18)
[2024-07-22] MEDS: LORazepam 0.5 MG TAB PO PRN (10:53)
[2024-07-22] MEDS: PANTOPRAZOLE 40 MG TAB PO ONE (16:22)
--- NOTE | 2024-07-22 17:56 | DVHDSRES ---
Discharge Summary Date of Admission Resident Creating Document: STEF WICK RESIDENT Jul 20, 2024 at 16:36 Date of Discharge: Jul 22, 2024 Admitting Diagnosis Worsening shortness of breath Labs/Diagnostic Data: Laboratory Results Test 07/22/24 16:07 07/21/24 06:17 07/20/24 19:40 07/20/24 14:49 POC Glucose 213 mg/dl (70-106) White Blood Count 13.4 10^3/uL (4.4-10.8) Red Blood Count 4.89 10^6/uL (4.5-5.90) Hemoglobin 14.4 g/dL (13.5-17.5) Hematocrit 42.9 % (41.0-53.0) Mean Corpuscular Volume 87.7 fL (80.0-100.0) Mean Corpuscular Hemoglobin 29.4 pg (28.0-32.0) Mean Corpuscular Hemoglobin Concent 33.6 g/dL (32.0-36.0) Red Cell Distribution Width 14.8 % (11.8-14.3) Platelet Count 325 10^3/uL (140-450) Mean Platelet Volume 9.3 fL (6.9-10.8) Neutrophils (%) (Auto) 81.9 % (37.0-80.0) Lymphocytes (%) (Auto) 11.3 % (10.0-50.0) Monocytes (%) (Auto) 6.5 % (0.0-12.0) Eosinophils (%) (Auto) 0.0 % (0.0-7.0) Basophils (%) (Auto) 0.3 % (0.0-2.0) Neutrophils # (Auto) 11.0 10 ^3/uL (1.6-8.6) Lymphocytes # (Auto) 1.5 10 ^3/uL (0.4-5.4) Monocytes # (Auto) 0.9 10 ^3/uL (0-1.3) Eosinophils # (Auto) 0 10 ^3/uL (0-0.8) Basophils # (Auto) 0 10 ^3/uL (0-0.2) Nucleated Red Blood Cells 0.0 % Sodium Level 140 mmol/L (136-145) Potassium Level 3.8 mmol/L (3.5-5.1) Chloride Level 104 mmol/L (98-107) Carbon Dioxide Level 24 mmol/L (20-31) Anion Gap 12 (5-15) Blood Urea Nitrogen 20 mg/dL (9-23) Creatinine 1.10 mg/dL (0.700-1.30) Glomerular Filtration Rate Calc 79 mL/min (>90) BUN/Creatinine Ratio 18.2 (10.0-20.0) Serum Glucose 135 mg/dL (74-106) Calcium Level 11.2 mg/dL (8.7-10.4) Total Bilirubin 0.3 mg/dL (0.2-1.0) Aspartate Amino Transferase (AST) 10 U/L (13-40) Alanine Aminotransferase (ALT) 12 U/L (7-40) Alkaline Phosphatase 84 U/L (46-116) Troponin I High Sensitivity 20 ng/L (</=54) Total Protein 7.8 g/dL (5.7-8.2) Albumin 5.1 g/dL (3.2-4.8) Lipase 27 U/L (12-53) Urine Color Light-yellow (Yellow) Urine Clarity Clear (Clear) Urine pH 5.5 (5.0-9.0) Urine Specific [place] 1.043 (1.001-1.035) Urine Protein 2+ (Negative) Urine Ketones 3+ (Negative) Urine Blood 1+ /uL (Negative) Urine Nitrite Negative (Negative) Urine Bilirubin Negative (Negative) Urine Urobilinogen Normal mg/dL (Negative) Urine Leukocyte Esterase Negative /uL (Negative) Urine RBC 2 /hpf (0 - 3) Urine WBC 6 /hpf (0 - 3) Urine Squamous Epithelial Cells None seen /hpf (<5) Urine Bacteria None seen /hpf (None Seen) Urine Sperm Present /hpf (None Seen) Urine Glucose 2+ mg/dL (Normal) Prothrombin Time 10.8 sec (9.3-11.8) Prothrombin Time INR 1.02 (0.9-1.15) Activated Partial Thromboplast Time 23.6 SEC (24.5-34.5) D-Dimer, Quantitative 0.35 mg/L FEU (0.0-0.49) Hemoglobin A1c 6.6 % A1C (<5.7) Magnesium Level 1.7 mg/dL (1.6-2.6) Other Laboratory Tests 07/21/24 06:17 Brief Hx & Hospital Course: Hospitalization Summary: Mr. Gaming, a 53-year-old male with a history of hypertension, hyperlipidemia, diabetes, COPD, depression, anxiety, ADHD, schizophrenia, umbilical hernia, morbid obesity, and oxygen dependence presented to the ED with chest pain, nausea, vomiting, and shortness of breath for one day. The chest pain, described as stabbing and constant, started in his left upper extremity, radiated to his left precordium, and spread across his chest to his abdomen, rated 10/10. ACS ruled out, likely a COPD exacerbation along with worsening GERD/gastritis/esophagitis. Patient is discharged home with outpatient treatment for COPD exacerbation and acid reflux disorder. Medical conditions treated in hospital: #1 Acute chest pain ruled out ACS #2 Urinary tract infection: On doxycycline, to continue #3 COPD exacerbation, intermittently home oxygen dependent 3 L, came to baseline status post steroid. #4 Chronic hypoxic respiratory failure with 3 L baseline #5 Known COPD secondary due to prolonged smoking history #6 Grade 2 obesity BMI 39.8 #7 Diabetes mellitus type 2 moderately controlled, HbA1c 6.6 #8 Chronic dyslipidemia, continue statin #9 Uncontrolled essential hypertension target blood pressure 130/80 or below. #10 Chronic depression anxiety #11 Schizophrenia #12 ADHD #13 80 pack-year tobacco abuse #14 Current smoker, last smoking before coming to the hospital, smoking cessation for 11 minutes done at bedside. Patient denied nicotine patch. All the patient encouraged to quit smoking. #15 Low back pain sciatica with radiation to right leg. Percocet 10/325 #16 Umbilical hernia: Nonincarcerated pending surgery stable. #17 Likely GERD/gastritis/worsening reflux: 1 month of PPI with 2 weeks of sucralfate trial. #18 Pulmonary embolism ruled out. Physical Examination (PE): GENERAL APPEARANCE: Well developed, well nourished, alert and cooperative, and appears to be in no acute distress. HEAD: normocephalic. EYES: PERRL, EOMI. Fundi normal, vision is grossly intact. EARS: External auditory canals and tympanic membranes clear, hearing grossly intact. NOSE: No nasal discharge. THROAT: Oral cavity and pharynx normal. No inflammation, swelling, exudate, or lesions. Teeth and gingiva in good general condition. Bilateral air entry equal, patient was in room air. NECK: Neck supple, non-tender without lymphadenopathy, masses or thyromegaly. CARDIAC: Normal S1 and S2. No S3, S4 or murmurs. Rhythm is regular. There is no peripheral edema, cyanosis or pallor. Extremities are warm and well perfused. Capillary refill is less than 2 seconds. No carotid bruits. LUNGS: Clear to auscultation and percussion without rales, rhonchi, wheezing or diminished breath sounds. ABDOMEN: Positive bowel sounds. Soft. No guarding or rebound. Midline periumbilical mass no incarceration noted. Distended abdomen, tympanic. No tenderness. MUSKULOSKELETAL: Adequately aligned spine. ROM intact spine and extremities. No joint erythema or tenderness. Normal muscular development. Normal gait. BACK: Examination of the spine reveals normal gait and posture, no spinal deformity, symmetry of spinal muscles, without tenderness, decreased range of motion or muscular spasm. EXTREMITIES: No significant deformity or joint abnormality. No edema. Peripheral pulses intact. No varicosities. LOWER EXTREMITY: Examination of both feet reveals all toes to be normal in size and symmetry, normal range of motion, normal sensation with distal capillary filling of less than 2 seconds without tenderness, swelling, discoloration, nodules, weakness or deformity; examination of both ankles, knees, legs, and hips reveals normal range of motion, normal sensation without tenderness, swelling, discoloration, crepitus, weakness or deformity. NEUROLOGICAL: CN II-XII intact. Strength and sensation symmetric and intact throughout. Reflexes 2+ throughout. Cerebellar testing normal. SKIN: Skin normal color, texture and turgor with no lesions or eruptions. PSYCHIATRIC: The mental examination revealed the patient was oriented to person, place, and time. The patient was able to demonstrate good judgement and reason, without hallucinations, abnormal affect or abnormal behaviors during the examination. Patient is not suicidal. Case discussed with Dr. Kennedy Follow up: Patient is agreed to follow PCP in 1-2 weeks of discharge. Discharge planning needed total 45 minutes of detailed discussion. The patient agreed to the plan. Consults/Reason for consult Cardiology Operations or Procedures [address] [address] Ph: [phone] DIAGNOSTIC IMAGING Diagnostic Imaging Report : [id number] Signed PATIENT: ANGELICA BYERS ACCT: [id number] UNIT: [id number] : 1970 LOC: TELE ROOM / BED: 1009-ERT / A AGE / SEX: 53 / M ADM STATUS: ADM IN SERVICE 26 ORDERING PHYSICIAN: CHERYL FAUSTIN DO PROCEDURE(s): HWOCT - HEAD WITHOUT CONTRAST REASON: FALL ORDER NUMBER(s): [id number], ACCESSION NUMBER(s): [id number] EXAM: CT HEAD WITHOUT CONTRAST INDICATION: FALL TECHNIQUE: CT of the head without intravenous contrast. Radiation Dose Information: CT Dose: CTDI volume is 70.2 mGy. Dose-length product is 2531.92 mGy*cm The dose indicators for CT are the volume Computed Tomography (CT) Dose Index (CTDIvol) and the Dose Length Product (DLP), and are measured in units of mGy and mGy-cm, respectively. These indicators are not patient dose, but values generated from the CT scanner acquisition factors. The report includes radiation exposure data for exposures received during this examination. COMPARISON: HEAD WITHOUT CONTRAST on DOS: 03/18/22, HEAD WITHOUT CONTRAST on DOS: 09/03/19 FINDINGS: There is no evidence of acute intracranial hemorrhage, extra-axial collection, mass effect, midline shift, herniation or hydrocephalus. The ventricles, sulci and cisterns are age appropriate. The maguire-white differentiation is intact. Patchy periventricular and subcortical white matter hypoattenuation is nonspecific but may be related to small vessel ischemic disease. Minimal mucosal thickening posterior aspect of maxillary sinuses bilaterally. There is also mucosal thickening of the ethmoid and frontal sinuses bilaterally. The mastoid air cells are clear. The surrounding soft tissues and osseous structures are unremarkable. IMPRESSION: 1. No acute intracranial hemorrhage 2. No CT findings of territorial ischemia 3. No CT findings of displaced skull fracture. ATED BY: ANNETTE MCKEON Jr., DO DICTATED DATE/TIME: 07/20/241929 SIGNED BY: ANNETTE MCKEON Jr., DO SIGNED DATE/TIME: 07/20/241929 CC: [place] [address] Ph: [phone] DIAGNOSTIC IMAGING Diagnostic Imaging Report : [id number] Signed PATIENT: ANGELICA BYERS ACCT: [id number] UNIT: [id number] : 1970 LOC: TELE ROOM / BED: 1009-ERT / A AGE / SEX: 53 / M ADM STATUS: ADM IN SERVICE 1603 ORDERING PHYSICIAN: CHERYL FAUSTIN DO PROCEDURE(s): CTACH - CT ANGIO CHEST CONTRAST REASON: cp ORDER NUMBER(s): [id number], ACCESSION NUMBER(s): [id number] INDICATION: cp COMPARISON: No prior cTAs of the chest for comparison. TECHNIQUE: Multidetector CTA of the chest was performed of the chest with 100 cc of intravenous contrast. PULMONARY ANGIOGRAPHY PROTOCOL was utilized using a bolus-tracking technique centered on the main pulmonary artery. Axial, coronal and sagittal multiplanar and MIP reformats were performed. Radiation Dose Information: CT Dose: CTDI volume is 123.39 mGy. Dose-length product is 2531.92 mGy*cm Omnipaque 350: 100 mL The dose indicators for CT are the volume Computed Tomography (CT) Dose Index (CTDIvol) and the Dose Length Product (DLP), and are measured in units of mGy and mGy-cm, respectively. These indicators are not patient dose, but values generated from the CT scanner acquisition factors. The report includes radiation exposure data for exposures received during this examination. Findings: Pulmonary artery: Normal caliber of the pulmonary artery. No large central or large segmental pulmonary embolism. Lower neck: Normal thyroid. Lungs: No focal consolidation, pulmonary mass, or suspicious pulmonary nodule. Inadequate opacification of pulmonary artery to exclude pulmonary emboli. ( Needed 266 HU: 172.66 achieved.) Heart/Vascular Structures: No filling defects in the right or left pulmonary arteries or saddle embolus. Normal heart size. Normal caliber and enhancement of the aorta. Lymph Nodes: No adenopathy Pleura: No pleural effusion or significant pneumothorax. Musculoskeletal: No acute osseous abnormality. Upper abdomen: Limited portions of the upper abdomen are unremarkable. IMPRESSION: 1. Suboptimal opacification pulmonary arteries. 2. No large filling defects in the right or left pulmonary arteries. No saddle embolus seen. ATED BY: ANNETTE MCKEON Jr., DO DICTATED DATE/TIME: 07/20/241952 SIGNED BY: ANNETTE MCKEON Jr., DO SIGNED DATE/TIME: 07/20/241952 CC: [place] [address] Ph: [phone] DIAGNOSTIC IMAGING Diagnostic Imaging Report : [id number] Signed PATIENT: ANGELICA BYERS ACCT: [id number] UNIT: [id number] : 1970 LOC: ER ROOM / BED: / AGE / SEX: 53 / M ADM STATUS: REG ER SERVICE 1441 ORDERING PHYSICIAN: CHERYL FAUSTIN DO PROCEDURE(s): CXRP - CHEST PORTABLE REASON: cp ORDER NUMBER(s): [id number], ACCESSION NUMBER(s): [id number] CHEST RADIOGRAPH Indication: cp Technique: Single frontal view of the chest was obtained COMPARISON: XY CHEST PORTABLE on DOS: 11/17/23, CHEST PORTABLE on DOS: 09/05/19, CHEST PORTABLE on DOS: 09/04/19 FINDINGS: Lines and Tubes: None Lungs: Clear Pleura: No effusion. No pneumothorax. Cardiomediastinal contours: Unremarkable Bones: Unremarkable IMPRESSION: No acute disease. ATED BY: JOSH VELIZ MD DICTATED DATE/TIME: 07/20/241529 SIGNED BY: JOSH VELIZ MD SIGNED DATE/TIME: 07/20/241529 CC: Condition at Discharge: Fair Final Diagnosis/Problems List #1 Acute chest pain R/O ACS #2 Urinary tract infection: On doxycycline, to continue #3 COPD exacerbation, intermittently home oxygen dependent 3 L, came to baseline status post steroid. #4 Chronic hypoxic respiratory failure with 3 L baseline #5 Known COPD secondary due to prolonged smoking history #6 Grade 2 obesity BMI 39.8 #7 Diabetes mellitus type 2 moderately controlled, HbA1c 6.6 #8 Chronic dyslipidemia, continue statin #9 Uncontrolled essential hypertension target blood pressure 130/80 or below. #10 Chronic depression anxiety #11 Schizophrenia #12 ADHD #13 80 pack-year tobacco abuse #14 Current smoker, last smoking before coming to the hospital, smoking cessation for 11 minutes done at bedside. Patient denied nicotine patch. All the patient encouraged to quit smoking. #15 Low back pain sciatica with radiation to right leg. Percocet #16 Umbilical hernia: Nonincarcerated pending surgery stable. #17 Likely GERD/gastritis/worsening reflux: 1 month of PPI with 2 weeks of sucralfate trial. #18 Pulmonary embolism ruled out. 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 sucralfate oral solution Discharge Statement: "Patient was advised to return to the ER or call 911 if any headaches, dizziness, shortness of breath, chest pain, abdominal pain, bleeding, fevers, or worsening of medical condition. Patient was counseled about treatment plan, medications, possible side effects, patientverbalized understanding. All questions were answered to the best of my ability. This discharge took greater then 30 minutes in planning, reviewing documentation, counseling the patient, and discussing with other team members." ASSESSMENT ASSESSMENT Assessment Date of Service: Jul 22, 2024 Billing Provider: VELASQUEZ DE LA TORRE MD Common Visit Codes: 07026-TIF/OBS DISCH DAY >30min SANDRA ELMORE Jul 22, 2024 17:56 VELASQUEZ DE LA TORRE MD Jul 25, 2024 09:55
[2024-07-22] MEDS ORDERED: PRED20TA2 PO (18:22)
[2024-07-22] MEDS ORDERED: PANT40TA2 PO (18:22)
[2024-07-22] MEDS ORDERED: SUCR1TAB31 OR (18:22)
[2024-07-22] MEDS ORDERED: SUCRALFATE 1 GM/10 ML ORAL SUSP GT SCH (22:00)
[2024-07-23] MEDS ORDERED: PANTOPRAZOLE 40 MG TAB PO SCH (06:00)
--- NOTE | 2024-07-24 14:45 | ECG ---
[facility] Test Date: 2024-07-20 Test Time: 14:43:33 Pat Name: ANGELICA BYERS Department: ER Room: 0280T A Gender: M Family Centered Specialist: MARIO : 1970 Requested By: CHERYL FAUSTIN Order Number: [id number] Reading MD: Cassius Rubin Measurements Intervals [place] Rate: 94 P: 68 TX: 153 QRS: 61 QRSD: 110 T: 27 QT: 379 QTc: 474 Interpretive Statements Sinus rhythm Low voltage, precordial leads Minimal ST depression, inferior leads Electronically Signed On 07-26-2024 9:57:39 PST by Cassius Rubin Please click the below link to view image of tracing.
== END 2024-07-22 20:30 | disposition home or self-care (01) | DRG 241 ==
LOC: ER 14:39 → TELE 16:36 → TELE-WESTW 20:45
PROVIDERS: ADMIT Student in an Organized Health Care Education/Training Program; ATTEND Student in an Organized Health Care Education/Training Program
DX: K29.70 Gastritis, unspecified, without bleeding (principal); J96.11 Chronic respiratory failure with hypoxia; J44.1 Chronic obstructive pulmonary disease with (acute) exacerbation; Z99.81 Dependence on supplemental oxygen; E66.01 Morbid (severe) obesity due to excess calories; D72.829 Elevated white blood cell count, unspecified; E11.9 Type 2 diabetes mellitus without complications; K21.9 Gastro-esophageal reflux disease without esophagitis; E78.5 Hyperlipidemia, unspecified; K20.90 Esophagitis, unspecified without bleeding; F32.A Depression, unspecified; F17.210 Nicotine dependence, cigarettes, uncomplicated; F41.9 Anxiety disorder, unspecified; F20.9 Schizophrenia, unspecified; I16.0 Hypertensive urgency; R81 Glycosuria; N39.0 Urinary tract infection, site not specified; M54.31 Sciatica, right side; K42.9 Umbilical hernia without obstruction or gangrene; F90.9 Attention-deficit hyperactivity disorder, unspecified type; Z88.0 Allergy status to penicillin; Z83.3 Family history of diabetes mellitus; Z82.49 Family history of ischemic heart disease and other diseases of the circulatory system; Z68.39 Body mass index [BMI] 39.0-39.9, adult
CPT/HCPCS: 36415; 70450; 71045; 71275; 80053; 81001; 82962; 83036; 83690; 83735; 84484; 85025; 85379; 85610; 85730; 93005; 94640; G0378; J1815; J2405; J2470; J3490

== ENCOUNTER 2024-08-28 06:08 | Day surgery (SDC) | payer MEDICAID ==
[2024-08-26 12:28] LABS: Urine Bacteria None Seen /hpf (None Seen)
[2024-08-26 12:38] LABS: Basophils # (auto) 0.1 10 ^3/uL (0-0.2); Basophils % (auto) 0.6 % (0.0-2.0); Eosinophils # (auto) 0.4 10 ^3/uL (0-0.8); Eosinophils % (auto) 4.3 % (0.0-7.0); Hematocrit 42.9 % (41.0-53.0); Hemoglobin 14.6 g/dL (13.5-17.5); Lymphocytes # (auto) 2.7 10 ^3/uL (0.4-5.4); Mean Corpuscular Hemoglobin 29.8 pg (28.0-32.0); Mean Corpuscular Volume 87.6 fL (80.0-100.0); Monocytes # (auto) 0.6 10 ^3/uL (0-1.3); Neutrophils # (auto) 5.6 10 ^3/uL (1.6-8.6); Neutrophils % (auto) 60.1 % (37.0-80.0); Nucleated Red Blood Cells % 0.1 %; Platelet Count (auto) 259 10^3/uL (140-450); Red Cell Distribution Width 14.3 % (11.8-14.3); Urine Blood Negative /uL (Negative); Urine Clarity Clear (Clear); Urine Color Colorless (Yellow); Urine Protein, UAD Negative (Negative); Urine Specific Gravity 1.009 (1.001-1.035); Urine Squamous Epithelial Cell None Seen /hpf (<5); Urine Urobilinogen Normal (Negative); Urine WBC 2 /hpf (0 - 3); White Blood Cell 9.4 10^3/uL (4.4-10.8)
[2024-08-26 12:59] LABS: INR 0.99 (0.9-1.15); Partial Thromboplastin Time 25.4 SEC (24.5-34.5); Prothrombin Time 10.5 sec (9.3-11.8)
[2024-08-26 13:09] LABS: Alanine Aminotransferase 14 U/L (7-40); Alkaline Phosphatase 64 U/L (46-116); Anion Gap 8 (5-15); BUN/Creatinine Ratio 21.1 (10.0-20.0); Calcium 10.3 mg/dL (8.7-10.4); Carbon Dioxide 26 mmol/L (20-31); Chloride 104 mmol/L (98-107); Potassium 4.1 mmol/L (3.5-5.1); Sodium 138 mmol/L (136-145)
[2024-08-26 13:11] LABS: Aspartate Aminotransferase < 8 U/L (13-40); Bilirubin, Total 0.2 mg/dL (0.2-1.0); Blood Urea Nitrogen 23 mg/dL (9-23); Glucose 208 mg/dL (74-106)
[2024-08-26 13:14] LABS: Albumin 4.8 g/dL (3.2-4.8)
[~2024-08-28] VITALS: Ht 177.8 cm; Wt 129.3 kg
[~2024-08-28 06:08] MED LIST changes: +ASPI-543 PO; -ASPI81CH59 PO; +DULA1INJ SC; +FLUT1AER17 IN; +HYDR-4798 PO; -OXY5T PO; -OXYC325T14 PO; +QUET200T4 PO; -QUET200T86 PO; +SUCR1TAB31 OR; -TRAZ-228 PO
[2024-08-28 06:25] VITALS: TEMP 98.4
[2024-08-28] MEDS ORDERED: PROPOFOL 10 MG/ML 20 ML IV ONE ×2 (06:47→08:12)
[2024-08-28] MEDS ORDERED: ETOMIDATE (2MG/ML) 20ML VIAL IV ONE (06:47)
[2024-08-28] MEDS ORDERED: ROCURONIUM 10MG/ML 10ML VIAL IV ONE (06:48)
[2024-08-28] MEDS ORDERED: LIDOCAINE W/ EPINEPHRINE 1% 20ML VIAL ONE (07:00)
[2024-08-28] MEDS ORDERED: BUPIVACAINE HCL 50 ML ONE (07:00)
[2024-08-28] MEDS ORDERED: CLINDAMYCIN 600MG IV 50 ML IV ONE (07:18)
[2024-08-28] MEDS ORDERED: LIDOCAINE 1% INJ PF 5ML AMP ONE (07:41)
[2024-08-28] MEDS ORDERED: HYDROmorphone HCL 2 MG/ML VL/or syr ONE ×2 (07:59→08:52)
[2024-08-28] MEDS: BUPIVACAINE 0.5% P/F INJ 10 ML VIAL ONE (07:59)
[2024-08-28] MEDS ORDERED: ONDANSETRON HCL 4 MG/2 ML VIAL ONE (08:08)
[2024-08-28] MEDS ORDERED: SUGAMMADEX 200mg/2ml Vial (100MG/ML) IV ONE (08:10)
[2024-08-28] MEDS: LIDOCAINE W/ EPINEPHRINE 1% 20ML VIAL ONE (08:15)
[2024-08-28] MEDS ORDERED: KETOROLAC TROMETH 30 MG/ML 1ML VIAL ONE (08:19)
[2024-08-28 08:28] VITALS: O2SAT 94
--- NOTE | 2024-08-28 08:32 | DVHOP ---
DATE OF SURGERY: 08/28/2024 PREOPERATIVE DIAGNOSIS: Umbilical hernia. POSTOPERATIVE DIAGNOSIS: Umbilical hernia. SURGEON: Mitul House MD RFID ANALYST: Walter Pelayo. ANESTHESIA: General endotracheal. ANESTHESIOLOGIST: Dr. Washburn. PROCEDURE: Repair of umbilical hernia. DESCRIPTION OF PROCEDURE: Under general endotracheal anesthesia, with the patient's skin prepped and draped and infiltrated with 0.25% Marcaine and 0.5% Xylocaine, incision was made in the periumbilical skin and deepened with electrocautery. The hernia sac was opened. It contained incarcerated omentum, which was lysed and freed from underneath the abdominal wall. It was reduced into the peritoneal cavity. The defect was then repaired using #1 double stranded Prolene suture in a horizontal mattress fashion with several interrupted nonabsorbable sutures placed through the crest that was created. The defect measured approximately 3 cm in diameter. The wound was then irrigated, irrigant was aspirated, hemostasis was assured, and subcutaneous tissues and skin were approximated using Monocryl sutures, Dermabond glue and Steri-Strips. The patient remained stable throughout the procedure, left the operating room following an accurate needle and sponge count. Mitul House MD PF/ROXANNA TID: [id number] RECEIPT: [id number]
[2024-08-28] MEDS: HYDROmorphone HCL 2 MG/ML VL/or syr IV PRN (08:53)
[2024-08-28] MEDS ORDERED: HYDROmorphone HCL 2 MG/ML VL/or syr IV PRN (09:00)
[2024-08-28] MEDS ORDERED: MORPHINE SULFATE 4 MG/ML SYR/VIAL IV PRN (09:00)
[2024-08-28] MEDS ORDERED: ONDANSETRON HCL 4 MG/2 ML VIAL IV ONE (09:00)
[2024-08-28 09:28] VITALS: BP 119/83; PULSE 80; RESP 19; O2SAT 93
== END 2024-08-28 09:35 | disposition home or self-care (01) ==
LOC: SUR 06:08
PROVIDERS: ATTEND Surgery
DX: K42.0 Umbilical hernia with obstruction, without gangrene (principal); E11.9 Type 2 diabetes mellitus without complications; I10 Essential (primary) hypertension; E66.01 Morbid (severe) obesity due to excess calories; I25.10 Atherosclerotic heart disease of native coronary artery without angina pectoris; G43.909 Migraine, unspecified, not intractable, without status migrainosus; F32.A Depression, unspecified; F41.9 Anxiety disorder, unspecified; F12.90 Cannabis use, unspecified, uncomplicated; J43.9 Emphysema, unspecified; Z88.0 Allergy status to penicillin; Z83.3 Family history of diabetes mellitus; Z79.82 Long term (current) use of aspirin; Z79.84 Long term (current) use of oral hypoglycemic drugs; Z87.891 Personal history of nicotine dependence; Z79.899 Other long term (current) drug therapy; Z88.8 Allergy status to other drugs, medicaments and biological substances
CPT/HCPCS: 36415; 49592; 80053; 81001; 82962; 85025; 85610; 85730; 86850; 86900; 86901; J1171; J1885; J2405; J2704; J3490

== ENCOUNTER 2025-05-23 09:26 | Emergency (ER) | payer MEDICAID ==
[~2025-05-23] VITALS: Ht 177.8 cm; Wt 129.0 kg
--- NOTE | 2025-05-23 09:43 | ED.PDOC ---
Musculoskeletal HPI Comments A 54 YEAR OLD MALE PRESENTS TO THE ED WITH COMPLAINT OF LEFT SHOULDER PAIN. PATIENT STATES HE HAS BEEN EXPERIENCING LEFT SHOULDER PAIN FOR THE PAST 1 MONTH THAT HAS BEEN WORSENING OVER THE LAST FEW DAYS. PATIENT REPORTS HIS PAIN IS WORSE WITH MOVEMENT. PATIENT DENIES INJURY TO THE AFFECTED AREA, FEVER, CHILLS, SHORTNESS OF BREATH, CHEST PAIN, ABDOMINAL PAIN, NAUSEA, VOMITING, HEADACHE, OR OTHER COMPLAINTS. NO OTHER SYMPTOMS OR MODIFYING FACTORS AT THIS TIME. PATIENT IS ALERT, ORIENTED X 4, AND HAS STEADY GAIT. Chief Complaint: Upper Extremity Time Seen by MD: 09:30 Primary Care Provider: RAMÍREZ Reviewed Notes: Nurses Notes, Medications, Allergies Allergies: Coded Allergies: Metoclopramide (Verified Allergy, Unknown, 11/06/23) Penicillins (Verified Allergy, Unknown, 11/06/23) Home Meds Active Scripts Sucralfate (CARAFATE) 1 Gm Tab, 1 GM OR TID for 14 Days, #42 TAB Prov:ERON BARRIOS RESIDENT 07/22/24 Pantoprazole Sodium Sesquihydr (Protonix) 40 Mg Tab, 40 MG PO DAILY for 30 Days, #30 TAB Prov:ERON BARRIOS RESIDENT 07/22/24 Reported Medications Dulaglutide (Trulicity) Unknown Strength Inj, SC, INJ 08/26/24 Hydrocodone-Acetaminophen (Hydrocodone Bitartrate/AC 10-325 mg) 1 Tab Tab, 1 TAB PO QID, TAB 08/26/24 Aspirin (Aspir-Low) 81 Mg Tab, 81 MG PO DAILY for 30 Days, MG 08/26/24 Awxsvpqhqfu-Fdscjxqlehyk-Emlkg (Trelegy Ellipta 200-62.5-25 Mcg/INH) Unknown Strength Aer, IN, AER 08/26/24 Quetiapine Fumerate (Seroquel Xr) 200 Mg Tab, 1 TAB PO QPM, #30 TAB 1 Refill 07/20/24 Irbesartan (Avapro) 300 Mg Tab, 150 MG PO DAILY for 30 Days, #30 04/23/24 Nifedipine (Nifedipine Er) 30 Mg Tab, 1 TAB PO DAILY for 90 Days, #90 04/23/24 Cholecalciferol (Vitamin D-3 Super Strengt) 2,000 Unit Tab, 1 TAB PO DAILY for 90 Days, #90 9/17/24 Divalproex Sodium (Divalproex Sodium) 500 Mg Tab, 1 TAB PO TID for 90 Days, #270 04/23/24 Hydrochlorothiazide (Hydrochlorothiazide) 25 Mg Tab, 1 TAB PO DAILY for 90 Days, #90 04/23/24 Sertraline Hcl (Sertraline Hcl) 50 Mg Tab, 100 MG PO BID for 90 Days, #180 04/23/24 Varenicline Tartrate (Varenicline Starti... 0.5 mg X 11 & 1 mg X 42) 1 Tab Tab, TAB PO UD for 30 Days, #53 04/23/24 Beclomethasone Dipropionate (Qvar Redihaler) 80 Mcg/Act Aer, MCG INH UD for 30 Days, #120 04/23/24 Hydroxyzine Hcl (Hydroxyzine Hcl) 50 Mg Tab, 1 TAB PO BID PRN for ANXIETY for 90 Days, #180 04/23/24 Buspirone Hcl (Buspirone Hcl) 15 Mg Tab, 30 MG PO BID for 90 Days, #180 04/23/24 Albuterol Sulfate (Albuterol Sulfate Hfa) 108 Mcg/Act Aer, 2 PUFF INH Q6HR for 24 Days, #8.5 04/23/24 Metformin Hydrochloride (Metformin Hcl) 1,000 Mg Tab, 1 TAB PO BID for 90 Days, #180 04/23/24 Montelukast Sodium (Singulair) 5 Mg Chw, 2 TAB PO DAILY, #30 TAB 5 Refills 09/03/19 Losartan Potassium (Losartan Potassium) 50 Mg Tab, 50 MG PO DAILY for 30 Days, MG 09/03/19 Rosuvastatin Calcium (Crestor) 20 Mg Tab, 20 MG PO DAILY, TAB 09/03/19 Information Source: Patient Mode of Arrival: Ambulatory Location: Left Extremity Location: Shoulder Timing: Weeks Prehospital treatment: None Severity: Moderate Able to Move Extremity: Yes Bear Weight: Fully Pain: Moderate Mechanism: No Trauma, Spontaneous Circumstances: Spontaneous Onset of Symptoms: Spontaneous Symptoms: Pain DVT Risk Factors: NONE Last Tetanus: Unknown Associated signs and symptoms: Shoulder pain Past Medical History PAST MEDICAL HISTORY: COPD, Depression, DM, High Lipids, HTN, ME, Schizophrenia Past Medical History (Other): CHRONIC BACK PAIN Surgical History: Denies all surgeries Family History Family History: Reviewed,noncontributory to illness, Family hx of DM, Family hx of Cancer, Family hx of heart sedrick Social History Smoker: Cigarettes Alcohol: Denies ETOH Use Drugs: Marijuana Lives In: Home Constitutional: denies: chills, diaphoresis, fatigue, fever, malaise, sweats, weakness, others EENTM: denies: blurred vision, double vision, ear bleeding, ear discharge, ear drainage, ear pain, ear ringing, eye pain, eye redness, hearing loss, mouth pain, mouth swelling, nasal discharge, nose bleeding, nose congestion, nose pain, photophobia, tearing, throat pain, throat swelling, voice changes, others Respiratory: denies: cough, hemoptysis, orthopnea, SOB at rest, shortness of breath, SOB with excertion, stridor, wheezing, others Cardiovascular: denies: chest pain, dizzy spells, diaphoresis, Dyspnea on exertion, edema, irregular heart beat, left arm pain, lightheadedness, palpitations, PND, syncope, others Gastrointestinal: denies: abdomen distended, abdominal pain, blood streaked bowels, constipated, diarrhea, dysphagia, difficulty swallowing, hematemesis, melena, nausea, poor appetite, poor fluid intake, rectal bleeding, rectal pain, vomiting, others Genitourinary: denies: burning, dysuria, flank pain, frequency, hematuria, incontinence, penile discharge, penile sore, pain, testicle pain, testicle swelling, urgency, others Neurological: denies: dizziness, fainting, headache, left sided numbness, left sided weakness, numbness, paresthesia, pre-existing deficit, right sided numbness, right sided weakness, seizure, speech problems, tingling, tremors, weakness, others Musculoskeletal: reports: joint pain, muscle pain, others (LEFT SHOULDER PAIN); denies: back pain, gout, joint swelling, muscle stiffness, neck pain Integumetry: denies: bruises, change in color, change in hair/nails, dryness, laceration, lesions, lumps, rash, wounds, others Allergic/Immunocompromised: denies: Difficulty Healing, Frequent Infections, Hives, Itching, others Hematologic/Lymphatic: denies: anemia, blood clots, easy bleeding, easy bruising, swollen glands, others Endocrine: denies: excessive hunger, excessive sweating, excessive thirst, excessive urination, flushing, intolerance to cold, intolerance to heat, unexplained weight gain, unexplained weight loss, others Psychiatric: denies: anxiety, bipolar disorder, depression, hopeless, panic disorder, schizophrenia, sleepless, suicidal, others All Other Systems: Reviewed and Negative Physical Exam General Appearance: Obese HEENT: Normal ENT Inspection, Pharynx Normal, TMs Normal Neck: Full Range of Motion, Non-Tender, Normal, Normal Inspection Respiratory: Chest Non-Tender, Lungs Clear, No Accessory Muscle Use, No Respiratory Distress, Normal Breath Sounds Cardiovascular: No Edema, No JVD, No Murmur, No Gallop, Normal Peripheral Pulses, Regular Rate/Rhythm Breast Exam: Deferred Gastrointestinal: No Organomegaly, Non Tender, No Pulsatile Mass, Normal Bowel Sounds, Soft Genitalia: Deferred Pelvic: Deferred Rectal: Deferred Extremities: Decreased range of motion, No calf tenderness, Normal capillary refill, Normal inspection, No pedal edema, Tender (AND MUSCLE SPASM ON LEFT SHOULDER, NO BONY TENDERNESS, SWELLING AND DEFORMITY. ) Musculoskeletal : Apperance: Normal Neurologic: Alert, clinical laboratory aide II-XII nml as Tested, No Motor Deficits, Normal Affect, Normal Mood, No Sensory Deficits Cerebellar Function: Normal Reflexes: Normal Skin: Dry, Normal Color, Warm Peripheral Pulses: 2+ carotid (R), 2+ carotid (L), 2+ Radial (R), 2+ Radial (L) Lymphatic: No Adenopathy Was a procedure done? Was a procedure done?: No Differential Diagnosis EXT Differential Diagnosis: Sprain, DJD, Strain, Arthritis, Bursitis Other Differential Diagnosis TENDINITIS, ROTATOR CUFF INJURY X-Ray, Labs, Meds, VS Vital Signs Date Time Temp Pulse Resp B/P (MAP) Pulse Ox O2 Delivery O2 Flow Rate FiO2 05/23/25 09:28 98.2 97 18 130/79 96 98.2 CLINICAL INDICATION: PAIN, NO INJURY TECHNIQUE: XY L SHOULDER 2+ VIEW XRAY Comparison: None FINDINGS/IMPRESSION: : There is no evidence of acute fracture or dislocation. Soft tissues are unremarkable. ATED BY: JOSH VELIZ MD DICTATED DATE/TIME: 05/23/25 1010 SIGNED BY: JOSH VELIZ MD SIGNED DATE/TIME: 05/23/25 1010 CC: X-Ray, Labs, Meds, VS Comment EXTERNAL MEDICAL RECORDS REVIEWED: [NONE] INDEPENDENT HISTORIANS: [NONE] SOCIAL DETERMINANTS OF HEALTH: [NONE] LABS ORDERED: NONE REVIEWED AND INTERPRETED RESULTS: NONE IMAGING ORDERED: XR SHOULDER LT TREATMENTS ORDERED: NONE PROCEDURES PERFORMED: NONE CRITICAL CARE TIME: NONE I HAVE DISCUSSED THE PATIENT WITH THE ATTENDING PHYSICIAN DR. KEMP AND HE AGREES WITH THE PATIENT'S PLAN OF CARE AND DISPOSITION. BASED ON HISTORY OF PRESENT ILLNESS, AND PHYSICAL EXAM, PATIENT WILL BE DISCHARGED HOME. PT HAS PAIN MEDICATION AT HOME. SHARED DECISION MAKING: DISCUSSED WITH PATIENT THAT THEIR WORKUP WAS NORMAL. PATIENT INSTRUCTED TO FOLLOW UP WITH PRIMARY CARE PROVIDER IN 1-2 DAYS FOR RE- EVALUATION OF SYMPTOMS. PATIENT VERBALIZES UNDERSTANDING TO RETURN TO ED FOR NEW OR WORSENING SYMPTOMS OR IF FOLLOW UP WITH PCP CANNOT BE OBTAINED. PATIENT FEELS COMFORTABLE GOING HOME AT THIS TIME. ALL QUESTIONS ADDRESSED AT TIME OF DISCHARGE. Images Reviewed?: Images reviewed and evaluated by me Time of 1ST Reevaluation: 10:20 Reevaluation 1ST: Improved Patient Education/Counseling: Diagnosis, Treatment, Need For Follow Up Family Education/Counseling: Diagnosis, Treatment, Need For Follow Up Medical Screening: No EMC Exist At This Time Departure 1 Departure Time of Disposition: 10:30 Impression: Primary Impression: Tendinitis of left shoulder Disposition: HOME / SELF CARE / HOMELESS Condition: Stable Additional Instructions: FOLLOW-UP WITH PCP IN 1 TO 2 DAYS FOR MRI STUDY. TAKE MEDICATIONS PRESCRIBED. RETURN TO ED FOR ANY NEW OR WORSENING SYMPTOMS. Discharged With: Self, Relative Critical Care Note Critical Care Time?: No Stability Stability form required: No I personally scribed for NANDO FORBES ([email or web address]) on 05/23/25 at 09:43. Electro nically submitted by Angus Jovel ([email or web address]). I personally scribed for NANDO FORBES ([email or web address]) on 05/23/25 at 10:13. Electro nically submitted by Angus Jovel ([email or web address]). I personally scribed for NANDO FORBES ([email or web address]) on 05/23/25 at 10:14. Electro nically submitted by Angus Jovel ([email or web address]). NANDO FORBES May 23, 2025 09:43
--- NOTE | 2025-05-23 10:13 | DVH ---
CLINICAL INDICATION: PAIN, NO INJURY TECHNIQUE: XY L SHOULDER 2+ VIEW XRAY Comparison: None FINDINGS/IMPRESSION: : There is no evidence of acute fracture or dislocation. Soft tissues are unremarkable.
[2025-05-23 10:20] VITALS: BP 130/79; PULSE 97; RESP 18; TEMP 98.2; O2SAT 96
== END 2025-05-23 10:21 | disposition home or self-care (01) ==
LOC: ER 09:26
DX: M75.22 Bicipital tendinitis, left shoulder (principal); M25.512 Pain in left shoulder; E11.9 Type 2 diabetes mellitus without complications; F17.210 Nicotine dependence, cigarettes, uncomplicated; F20.9 Schizophrenia, unspecified; F32.A Depression, unspecified; G89.29 Other chronic pain; I10 Essential (primary) hypertension; I25.2 Old myocardial infarction; J44.9 Chronic obstructive pulmonary disease, unspecified; Z88.0 Allergy status to penicillin; Z79.51 Long term (current) use of inhaled steroids
CPT/HCPCS: 73030

== ENCOUNTER 2025-06-11 07:06 | Inpatient (IN) | payer MEDICAID ==
[~2025-06-11] VITALS: Ht 177.8 cm; Wt 111.7 kg
--- NOTE | 2025-06-11 07:31 | ED.PDOC ---
HPI Comments This is a 54 year old male presenting to the ED with chief complaint of chest pain. Patient reports that he has been experiencing 9/10 left sided chest pain with associated left arm pain, SOB, and cough for the past 2 days. 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 Patient's blood pressure noted to be elevated during triage. Patient denies any dizziness, headache, N/V, syncope, or weakness. Chief Complaint: Chest Pain Time Seen by MD: 07:26 Primary Care Provider: RAMÍREZ Reviewed Notes: Nurses Notes, Medications, Allergies Allergies: Coded Allergies: Metoclopramide (Verified Allergy, Unknown, 11/06/23) Penicillins (Verified Allergy, Unknown, 11/06/23) Home Meds Active Scripts Sucralfate (CARAFATE) 1 Gm Tab, 1 GM OR TID for 14 Days, #42 TAB Prov:ERON BARRIOS RESIDENT 07/22/24 Pantoprazole Sodium Sesquihydr (Protonix) 40 Mg Tab, 40 MG PO DAILY for 30 Days, #30 TAB Prov:ERON BARRIOS RESIDENT 07/22/24 Reported Medications Dulaglutide (Trulicity) Unknown Strength Inj, SC, INJ 08/26/24 Hydrocodone-Acetaminophen (Hydrocodone Bitartrate/AC 10-325 mg) 1 Tab Tab, 1 TAB PO QID, TAB 08/26/24 Aspirin (Aspir-Low) 81 Mg Tab, 81 MG PO DAILY for 30 Days, MG 08/26/24 Leyudtmhfzz-Alxbkmwqekge-Jatvq (Trelegy Ellipta 200-62.5-25 Mcg/INH) Unknown Strength Aer, IN, AER 08/26/24 Quetiapine Fumerate (Seroquel Xr) 200 Mg Tab, 1 TAB PO QPM, #30 TAB 1 Refill 07/20/24 Irbesartan (Avapro) 300 Mg Tab, 150 MG PO DAILY for 30 Days, #30 04/23/24 Nifedipine (Nifedipine Er) 30 Mg Tab, 1 TAB PO DAILY for 90 Days, #90 04/23/24 Cholecalciferol (Vitamin D-3 Super Strengt) 2,000 Unit Tab, 1 TAB PO DAILY for 90 Days, #90 04/23/24 Divalproex Sodium (Divalproex Sodium) 500 Mg Tab, 1 TAB PO TID for 90 Days, #270 04/23/24 Hydrochlorothiazide (Hydrochlorothiazide) 25 Mg Tab, 1 TAB PO DAILY for 90 Days, #90 04/23/24 Sertraline Hcl (Sertraline Hcl) 50 Mg Tab, 100 MG PO BID for 90 Days, #180 04/23/24 Varenicline Tartrate (Varenicline Starti... 0.5 mg X 11 & 1 mg X 42) 1 Tab Tab, TAB PO UD for 30 Days, #53 04/23/24 Beclomethasone Dipropionate (Qvar Redihaler) 80 Mcg/Act Aer, MCG INH UD for 30 Days, #120 04/23/24 Hydroxyzine Hcl (Hydroxyzine Hcl) 50 Mg Tab, 1 TAB PO BID PRN for ANXIETY for 90 Days, #180 04/23/24 Buspirone Hcl (Buspirone Hcl) 15 Mg Tab, 30 MG PO BID for 90 Days, #180 04/23/24 Albuterol Sulfate (Albuterol Sulfate Hfa) 108 Mcg/Act Aer, 2 PUFF INH Q6HR for 24 Days, #8.5 04/23/24 Metformin Hydrochloride (Metformin Hcl) 1,000 Mg Tab, 1 TAB PO BID for 90 Days, #180 04/23/24 Montelukast Sodium (Singulair) 5 Mg Chw, 2 TAB PO DAILY, #30 TAB 5 Refills 09/03/19 Losartan Potassium (Losartan Potassium) 50 Mg Tab, 50 MG PO DAILY for 30 Days, MG 09/03/19 Rosuvastatin Calcium (Crestor) 20 Mg Tab, 20 MG PO DAILY, TAB 09/03/19 Information Source: Patient Mode of Arrival: Ambulatory Severity: Moderate Timing: Days Duration: Since onset Prehospital treatment: Pain Meds Location: Chest (L) Radiation: Arm (L) Quality: Sharp Onset: At Rest Cardiac Risk Factors: Hyperlipidemia, HTN, Diabetes History of: [place] Associated Signs and Symptoms: SOB Past Medical History PAST MEDICAL HISTORY: COPD, Depression, DM, High Lipids, HTN, TN, Schizophrenia Surgical History: Denies all surgeries Family History Family History: Reviewed,noncontributory to illness, Family hx of DM, Family hx of Cancer, Family hx of heart sedrick Social History Smoker: Cigarettes Alcohol: Denies ETOH Use Drugs: Marijuana Lives In: Home Constitutional: denies: chills, diaphoresis, fatigue, fever, malaise, sweats, weakness, others EENTM: denies: blurred vision, double vision, ear bleeding, ear discharge, ear drainage, ear pain, ear ringing, eye pain, eye redness, hearing loss, mouth pain, mouth swelling, nasal discharge, nose bleeding, nose congestion, nose pain, photophobia, tearing, throat pain, throat swelling, voice changes, others Respiratory: reports: cough, shortness of breath; denies: hemoptysis, orthopnea, SOB at rest, SOB with excertion, stridor, wheezing, others Cardiovascular: reports: chest pain, left arm pain; denies: dizzy spells, pamela phoresis, Dyspnea on exertion, edema, irregular heart beat, lightheadedness, palpitations, PND, syncope, others Gastrointestinal: denies: abdomen distended, abdominal pain, blood streaked bowels, constipated, diarrhea, dysphagia, difficulty swallowing, hematemesis, melena, nausea, poor appetite, poor fluid intake, rectal bleeding, rectal pain, vomiting, others Genitourinary: denies: burning, dysuria, flank pain, frequency, hematuria, incontinence, penile discharge, penile sore, pain, testicle pain, testicle swelling, urgency, others Neurological: denies: dizziness, fainting, headache, left sided numbness, left sided weakness, numbness, paresthesia, pre-existing deficit, right sided numbness, right sided weakness, seizure, speech problems, tingling, tremors, weakness, others Musculoskeletal: denies: back pain, gout, joint pain, joint swelling, muscle pain, muscle stiffness, neck pain, others Integumetry: denies: bruises, change in color, change in hair/nails, dryness, laceration, lesions, lumps, rash, wounds, others Allergic/Immunocompromised: denies: Difficulty Healing, Frequent Infections, Hives, Itching, others Hematologic/Lymphatic: denies: anemia, blood clots, easy bleeding, easy bruising, swollen glands, others Endocrine: denies: excessive hunger, excessive sweating, excessive thirst, excessive urination, flushing, intolerance to cold, intolerance to heat, unexplained weight gain, unexplained weight loss, others Psychiatric: denies: anxiety, bipolar disorder, depression, hopeless, panic disorder, schizophrenia, sleepless, suicidal, others All Other Systems: Reviewed and Negative Physical Exam General Appearance: No Apparent Distress, Other (Appears uncomfortable.) HEENT: Normal ENT Inspection, Pharynx Normal, TMs Normal Neck: Full Range of Motion, Non-Tender, Normal, Normal Inspection Respiratory: Chest Non-Tender, Lungs Clear, No Accessory Muscle Use, Normal Breath Sounds, Other (Coughing.) Cardiovascular: No Edema, No JVD, No Murmur, No Gallop, Normal Peripheral Pulses, Regular Rate/Rhythm Breast Exam: Deferred Gastrointestinal: No Organomegaly, Non Tender, No Pulsatile Mass, Normal Bowel Sounds, Soft Genitalia: Deferred Pelvic: Deferred Rectal: Deferred Extremities: No calf tenderness, Normal capillary refill, Normal inspection, Normal range of motion, Non-tender, No pedal edema Musculoskeletal : Apperance: Normal Neurologic: Alert, clinical manager II-XII nml as Tested, No Motor Deficits, Normal Affect, Normal Mood, No Sensory Deficits Cerebellar Function: Normal Reflexes: Normal Skin: Dry, Normal Color, Warm Lymphatic: No Adenopathy Was a procedure done? Was a procedure done?: No CP Differential Dx Differential Diagnosis: Hypoxia, MAT Differential Diagnosis: CHF, HTN Essential, HTN Accelerated Differential Diagnosis: Gastritis, Myocardial Infarction, Pericarditis X-Ray, Labs, Meds, VS Vital Signs Date Time Temp Pulse Resp B/P (MAP) Pulse Ox O2 Delivery O2 Flow Rate FiO2 06/11/25 08:39 82 14 179/111 06/11/25 07:54 84 18 121/91 06/11/25 07:53 83 06/11/25 07:41 85 14 97 Room Air* 0 21 06/11/25 07:41 97.9 85 14 121/91 (101) 97 97.9 06/11/25 07:17 97.6 91 20 182/110 (134) 92 97.6 06/11/25 07:15 96 06/11/25 07:07 96.7 103 20 97 96.7 Lab Test 06/11/25 08:19 06/11/25 07:23 Range/Units Troponin I High Sensitivity < 3 L 3 L </=54 ng/L White Blood Count 15.6 H 4.4-10.8 10^3/uL Red Blood Count 5.33 4.5-5.90 10^6/uL Hemoglobin 15.6 13.5-17.5 g/dL Hematocrit 46.1 41.0-53.0 % Mean Corpuscular Volume 86.4 80.0-100.0 fL Mean Corpuscular Hemoglobin 29.3 28.0-32.0 pg Mean Corpuscular Hemoglobin Concent 33.9 32.0-36.0 g/dL Red Cell Distribution Width 14.4 H 11.8-14.3 % Platelet Count 336 140-450 10^3/uL Mean Platelet Volume 9.5 6.9-10.8 fL Neutrophils (%) (Auto) 75.2 37.0-80.0 % Lymphocytes (%) (Auto) 16.3 10.0-50.0 % Monocytes (%) (Auto) 6.6 0.0-12.0 % Eosinophils (%) (Auto) 1.2 0.0-7.0 % Basophils (%) (Auto) 0.7 0.0-2.0 % Neutrophils # (Auto) 11.7 H 1.6-8.6 10 ^3/uL Lymphocytes # (Auto) 2.6 0.4-5.4 10 ^3/uL Monocytes # (Auto) 1.0 0-1.3 10 ^3/uL Eosinophils # (Auto) 0.2 0-0.8 10 ^3/uL Basophils # (Auto) 0.1 0-0.2 10 ^3/uL Nucleated Red Blood Cells 0.1 % Sodium Level 139 136-145 mmol/L Potassium Level 3.7 3.5-5.1 mmol/L Chloride Level 105 98-107 mmol/L Carbon Dioxide Level 22 20-31 mmol/L Anion Gap 12 5-15 Blood Urea Nitrogen 18 9-23 mg/dL Creatinine 1.35 H 0.700-1.30 mg/dL Glomerular Filtration Rate Calc 62 >90 mL/min BUN/Creatinine Ratio 13.3 10.0-20.0 Serum Glucose 176 H 74-106 mg/dL Calcium Level 10.2 8.7-10.4 mg/dL Current Medications Medications (Trade) Dose Ordered Sig/Kj Route Start Time Stop Time Status Last Admin Ondansetron HCl (Zofran) 4 mg ONCE ONCE IV 06/11/25 07:30 06/11/25 07:31 DC 11/5/25 07:54 Morphine Sulfate 4 mg ONCE ONCE IV 06/11/25 07:30 06/11/25 07:31 DC 06/11/25 07:54 Sodium Chloride 1,000 ml @ 1,000 mls/hr Q1H ONCE IV 06/11/25 07:30 06/11/25 08:29 DC 06/11/25 07:52 [place] [id number] Ph: [phone] DIAGNOSTIC IMAGING Diagnostic Imaging Report : [id number] Signed PATIENT: ANGELICA BYERS ACCT: [id number] UNIT: [id number] : 1970 LOC: ER ROOM / BED: / AGE / SEX: 54 / M ADM STATUS: REG ER SERVICE 2 ORDERING PHYSICIAN: SHILPI SAUL MD PROCEDURE(s): CXR1 - CHEST XRAY 1 VIEW REASON: CHEST PAIN ORDER NUMBER(s): [id number], ACCESSION NUMBER(s): [id number] EXAM: XY CHEST XRAY 1 VIEW HISTORY: CHEST PAIN COMPARISON: XY CHEST PORTABLE on DOS: 07/20/24, XY CHEST PORTABLE on DOS: 11/17/23, XR CHEST 1 VIEW on DOS: 09/27/21, CT scan of the chest dated 07/20/2024. TECHNIQUE: Portable upright AP view of the chest was performed. FINDINGS: No pneumothorax, new infiltrates, or pulmonary edema. The there is scarring in the left lung base. Emphysematous changes are better characterized on prior CT scan. The heart is not enlarged. There is thoracic degenerative disc disease. IMPRESSION: Emphysema without evidence of acute intrathoracic process. ATED BY: ARIANE VILLA MD DICTATED DATE/TIME: 06/11/25803 SIGNED BY: ARIANE VILLA MD SIGNED DATE/TIME: 06/11/25803 CC: Images Reviewed?: Images reviewed and evaluated by me Time of 1ST Reevaluation: 08:26 Reevaluation 1ST: Unchanged Patient Education/Counseling: Diagnosis, Treatment Family Education/Counseling: No Family Present SEPSIS Sepsis Screen Date sepsis recognized/suspect: Jun 11, 2025 Time Sepsis recognized/suspect: 0708 Recent Procedure: No On Antibiotic Therapy: No Respiratory Rate >20: No Heart Rate >90: No Temp<36 C (96.8 F) or >38.3 C: No SBP <90 or MAP <65 mmHG: No New Acute Mental Status Change: No Is the patient on CPAP, BIPAP,: No Physician Orders Troponin-I Hs (06/11/25 10:13) Stat Ekg For Chest Pain (06/11/25 07:13) Chest Xray 1 View (06/11/25 07:13) Electrocardigram (06/11/25 08:26) Electrocardigram (06/11/25 10:26) Hydralazine Injection (Apresoline Inject (06/11/25 09:00) Vital Signs Date Time Temp Pulse Resp B/P (MAP) Pulse Ox O2 Delivery O2 Flow Rate FiO2 06/11/25 08:39 82 14 179/111 06/11/25 07:54 84 18 121/91 06/11/25 07:53 83 06/11/25 07:41 85 14 97 Room Air* 0 21 06/11/25 07:41 97.9 85 14 121/91 (101) 97 97.9 06/11/25 07:17 97.6 91 20 182/110 (134) 92 97.6 06/11/25 07:15 96 06/11/25 07:07 96.7 103 20 97 96.7 Laboratory Tests Test 06/11/25 07:23 White Blood Count 15.6 10^3/uL (4.4-10.8) H Medications Medications Dose Ordered Sig/Kj Route Start Time Stop Time Status Last Admin Dose Admin Morphine Sulfate 4 mg ONCE ONCE IV 06/11/25 07:30 06/11/25 07:31 DC 06/11/25 07:54 Ondansetron HCl 4 mg ONCE ONCE IV 06/11/25 07:30 06/11/25 07:31 DC 06/11/25 07:54 Sodium Chloride 1,000 ml @ 1,000 mls/hr Q1H ONCE IV 06/11/25 07:30 06/11/25 08:29 DC 06/11/25 07:52 Departure 1 Departure Time of Disposition: 09:03 (Patient presented with hypertension and symptoms concerning for hypertensive emergency. Patient is receiving iv blood pressure medications requiring intensive monitoring. Data: 1. I ordered and reviewed the result of at least 3 labs including a CBC, BMP, and Urinalysis. 2. I independently interpreted the following tests: Chest x-ray is benign. EKG which is Normal Sinus RhythmRisk:This patient has a high risk of morbidity due to further diagnostic testing or treatment and may suffer from an acute cardiac disorder. Workup reveals hypertensive emergency and patient should be admitted for further workup. and possible expert consultation. ) Impression: Primary Impression: Hypertensive emergency Additional Impressions: Acute chest pain Shortness of breath Disposition: ADMITTED INPATIENT Admit to: Tele Condition: Guarded Critical Care Note Critical Care Time?: Yes Critical care comment: Hypertensive emergency Authorized and Performed by: Shilpi Saul MD Total critical care time: Approximately 38 minutes Due to a high probability of clinically significant, life threatening deterioration, the patient required my highest level of preparedness to intervene emergently and I personally spent this critical care time directly and personally managing the patient. This critical care time included obtaining a history; examining the patient; pulse oximetry; ordering and review of studies; arranging urgent treatment with development of a management plan; evaluation of patient's response to treatment; frequent reassessment; and, discussions with other providers. This critical care time was performed to assess and manage the high probability of imminent, life-threatening deterioration that could result in multi-organ failure. It was exclusive of separately billable procedures and treating other patients and teaching time. Please see my other sections and the rest of the note for further information on patient assessment and treatment. Stability Stability form required: No Heart Score Heart Score: Heart Score Response (Comments) Value History Highly Suspicious 2 EKG Normal 0 Age 45-64 1 Risk Factors >3 or Hx ASHD 2 Troponin 1-2 x's Normal limit 1 Total 6 I personally scribed for SHILPI SAUL MD ([email or web address]) on 06/11/25 at 07:31. Electronically submitted by Kris Toth ([email or web address]). I personally scribed for SHILPI SAUL MD ([email or web address]) on 06/11/25 at 08:09. Electronically submitted by Kris Toth ([email or web address]). SHILPI SAUL MD Jun 11, 2025 07:31
[2025-06-11 07:36] LABS: Hematocrit 46.1 % (41.0-53.0); Hemoglobin 15.6 g/dL (13.5-17.5); Mean Corpuscular Hemoglobin 29.3 pg (28.0-32.0); Mean Corpuscular Volume 86.4 fL (80.0-100.0); Nucleated Red Blood Cells % 0.1 %
[2025-06-11 07:41] VITALS: PULSE 85; RESP 14; O2SAT 97
[2025-06-11 07:45] LABS: Chloride 105 mmol/L (98-107); Potassium 3.7 mmol/L (3.5-5.1); Sodium 139 mmol/L (136-145)
[2025-06-11 07:46] LABS: Anion Gap 12 (5-15); Carbon Dioxide 22 mmol/L (20-31)
[2025-06-11 07:47] LABS: Calcium 10.2 mg/dL (8.7-10.4)
[2025-06-11 07:51] LABS: BUN/Creatinine Ratio 13.3 (10.0-20.0); Blood Urea Nitrogen 18 mg/dL (9-23)
[2025-06-11] MEDS: SODIUM CHLORIDE 0.9% 1,000 ML IV ONE (07:52)
[2025-06-11] MEDS: MORPHINE SULFATE 4 MG/ML SYR/VIAL IV ONE ×2 (07:54→10:14)
[2025-06-11] MEDS: ONDANSETRON HCL 4 MG/2 ML VIAL IV ONE ×2 (07:54→10:15)
[2025-06-11 07:58] LABS: Glucose 176 mg/dL (74-106)
--- NOTE | 2025-06-11 08:05 | ECG ---
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
--- NOTE | 2025-06-11 08:06 | DVH ---
EXAM: XY CHEST XRAY 1 VIEW HISTORY: CHEST PAIN COMPARISON: XY CHEST PORTABLE on DOS: 07/20/24, XY CHEST PORTABLE on DOS: 11/17/23, XR CHEST 1 VIEW on DOS: 09/27/21, CT scan of the chest dated 07/20/2024. TECHNIQUE: Portable upright AP view of the chest was performed. FINDINGS: No pneumothorax, new infiltrates, or pulmonary edema. The there is scarring in the left lung base. Emphysematous changes are better characterized on prior CT scan. The heart is not enlarged. There is thoracic degenerative disc disease. IMPRESSION: Emphysema without evidence of acute intrathoracic process.
[2025-06-11] MEDS: hydrALAZINE HCL 20 MG/ML VL IV ONE (09:11)
[2025-06-11] MEDS ORDERED: ONDANSETRON HCL 4 MG/2 ML VIAL IV PRN (09:30)
[2025-06-11] MEDS ORDERED: DOCUSATE SOD 100 MG CAP PO PRN (09:30)
[2025-06-11] MEDS ORDERED: MORPHINE SULFATE INJ 2 MG/ml SYRG IV PRN (09:30)
[2025-06-11] MEDS ORDERED: ACETAMINOPHEN 325 MG TAB PO PRN (09:30)
--- NOTE | 2025-06-11 09:56 | ECG ---
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
[2025-06-11] MEDS ORDERED: PATIENTS OWN MEDICATION (Hydroxyzine Hcl 1 TAB) PO PRN (11:00)
--- NOTE | 2025-06-11 11:42 | DVHHP2 ---
History of Present Illness Reason for Visit: Chest pain History of Present Illness Mekhi Desai is a 54-year-old male with past medical history of hypertension, hyperlipidemia, diabetes, depression, schizophrenia, and COPD, came to the hospital for chest pain. Patient is visibly uncomfortable while in bed. He is restless, and having difficulty answering questions. It is unclear when his symptoms began or exactly how severe they are. Patient is a poor historian. He states his symptoms began 2 days ago, but when asked again he states this morning. He states the pain is sharp and pressure like that radiates to his left arm. However when asked again he states it does not radiate. He follows with Dr. Serge Barclay as an outpatient. He is unsure of when his last ECHO was completes. States he did have a stress test last year and that he thinks the results were fine. Nurse states he is coughing up white frothy sputum. Cardiovascular: HTN, hyperipidemia Pulmonary: COPD GI: GERD Psych: Depression, Schizophrenia Endocrine: Diabetes Past Surgical History: Hernia Repair Smoke: 1 pack per day ALCOHOL: none Drugs: Marijuana Lives: Roommate Domestic Violence: Neg Review of Systems Constitutional: No: Fever, Chills, Sweats, Weakness, Malaise, Other Eyes: No: Pain, Vision change, Conjunctivae inflammation, Eyelid inflammation, Other, Redness ENT: No: Ear pain, Ear discharge, Nose pain, Nose discharge, Nose congestion, Mouth pain, Mouth swelling, Throat pain, Throat swelling, Other Respiratory: Shortness of breath; No: Cough, Dry, SOB with excertion, Wheezing, Hemoptysis, Pleuritic Pain, Sputum, Wheezing, Other Cardiovascular: Chest Pain (chest pressure radiates to left arm); No: Palpitations, Orthopnea, Paroxysmal Noc. Dyspnea, Edema, Lt Headedness, Other Gastrointestinal: No: Nausea, Vomiting, Abdominal Pain, Diarrhea, Constipation, Melena, Hematochezia, Other Genitourinary: No Dysuria, No Frequency, No Incontinence, No Hematuria, No Retention, No Other Musculoskeletal: No: other, neck pain, shoulder pain, arm pain, back pain, hand pain, leg pain, foot pain Skin: No: Rash, Lesions, Jaundice, Bruising, Other Neurological: No: Weakness, Numbness, Incoordination, Change in speech, Confusion, Seizures, Other Allergies: Coded Allergies: Metoclopramide (Verified Allergy, Unknown, 11/06/23) Penicillins (Verified Allergy, Unknown, 11/06/23) Medications Current Medications Medications Dose Ordered Sig/Kj Route Start Time Stop Time Status Last Admin Dose Admin Ondansetron HCl 4 mg Q4HP PRN IV 06/11/25 09:30 UNV Docusate Sodium 100 mg BIDPRN PRN PO 06/11/25 09:30 UNV Acetaminophen 650 mg Q6HP PRN PO 06/11/25 09:30 UNV Nitroglycerin 0.4 mg Q5MINP PRN SL 06/11/25 09:30 UNV Morphine Sulfate 2 mg Q30M PRN IV 06/11/25 09:30 UNV Exam Vital Signs Vital Signs Date Time Temp Pulse Resp B/P (MAP) Pulse Ox O2 Delivery O2 Flow Rate FiO2 06/11/25 11:01 94 20 161/85 06/11/25 08:19 96 06/11/25 07:41 Room Air* 0 21 06/11/25 07:41 97.9 97.9 General Appearance: Alert, Oriented X3, moderate distress HEENT: Atraumatic, PERRLA Respiratory: Other (Diminshed breath sounds) Cardiovascular: Regular rate, Normal S1, Normal S2 Abdominal: Normal bowel sounds, Soft, No tenderness Extremities: No clubbing, No cyanosis, No edema Skin: No rashes, No breakdown, No significant lesion Neuro: Normal gait, Normal speech, Strength at 5/5 X4 ext Psych/Mental Status: Mental status NL, Mood NL Labs/Xrays Labs Test 06/11/25 10:25 06/11/25 07:23 Range/Units White Blood Count 15.6 H 4.4-10.8 10^3/uL Red Blood Count 5.33 4.5-5.90 10^6/uL Hemoglobin 15.6 13.5-17.5 g/dL Hematocrit 46.1 41.0-53.0 % Mean Corpuscular Volume 86.4 80.0-100.0 fL Mean Corpuscular Hemoglobin 29.3 28.0-32.0 pg Mean Corpuscular Hemoglobin Concent 33.9 32.0-36.0 g/dL Red Cell Distribution Width 14.4 H 11.8-14.3 % Platelet Count 336 140-450 10^3/uL Mean Platelet Volume 9.5 6.9-10.8 fL Neutrophils (%) (Auto) 75.2 37.0-80.0 % Lymphocytes (%) (Auto) 16.3 10.0-50.0 % Monocytes (%) (Auto) 6.6 0.0-12.0 % Eosinophils (%) (Auto) 1.2 0.0-7.0 % Basophils (%) (Auto) 0.7 0.0-2.0 % Neutrophils # (Auto) 11.7 H 1.6-8.6 10 ^3/uL Lymphocytes # (Auto) 2.6 0.4-5.4 10 ^3/uL Monocytes # (Auto) 1.0 0-1.3 10 ^3/uL Eosinophils # (Auto) 0.2 0-0.8 10 ^3/uL Basophils # (Auto) 0.1 0-0.2 10 ^3/uL Nucleated Red Blood Cells 0.1 % Sodium Level 139 136-145 mmol/L Potassium Level 3.7 3.5-5.1 mmol/L Chloride Level 105 98-107 mmol/L Carbon Dioxide Level 22 20-31 mmol/L Anion Gap 12 5-15 Blood Urea Nitrogen 18 9-23 mg/dL Creatinine 1.35 H 0.700-1.30 mg/dL Glomerular Filtration Rate Calc 62 >90 mL/min BUN/Creatinine Ratio 13.3 10.0-20.0 Serum Glucose 176 H 74-106 mg/dL Calcium Level 10.2 8.7-10.4 mg/dL EXAM: XY CHEST XRAY 1 VIEW FINDINGS: No pneumothorax, new infiltrates, or pulmonary edema. The there is scarring in the left lung base. Emphysematous changes are better characterized on prior CT scan. The heart is not enlarged. There is thoracic degenerative disc disease. IMPRESSION: Emphysema without evidence of acute intrathoracic process. SEPSIS Sepsis Screen Date sepsis recognized/suspect: Jun 11, 2025 Time Sepsis recognized/suspect: 07 Recent Procedure: No On Antibiotic Therapy: No Respiratory Rate >20: No Heart Rate >90: No Temp<36 C (96.8 F) or >38.3 C: No SBP <90 or MAP <65 mmHG: No New Acute Mental Status Change: No Is the patient on CPAP, BIPAP,: No Physician Orders Troponin-I Hs (06/11/25 10:13) Stat Ekg For Chest Pain (06/11/25 07:13) Chest Xray 1 View (06/11/25 07:13) Electrocardigram (06/11/25 10:26) Admit (06/11/25 09:27) Code Status (06/11/25 09:) Ondansetron Hcl (Zofran) (06/11/25 09:30) Docusate Sodium Capsule (Colace Capsule) (06/11/25 09:30) Complete Blood Count (06/12/25 04:00) Comprehensive Metabolic Panel (06/12/25 04:00) Cardiac Diet-2gna,Lofat,Lochol (06/11/25 Breakfast) Echo 2d Mode Cardiac Dop (06/11/25 09:27) Condition: Serious (06/11/25 09:27) Acetaminophen Tablet (Tylenol Tablet) (06/11/25 09:30) Nitroglycerin Sublingual (Ntrostat Subli (06/11/25 09:30) Morphine Sulfate Injection (06/11/25 09:30) Notify Md Of Changes From Base (06/11/25 09:27) Trimming 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 Operator For 24 Hours (06/11/25 09:27) Emergency Dysrhythmia Protocol (06/11/25:) Rhythm Strips Once Every Shift (06/11/25 09:27) Oxygen By Nasal Cannula (06/11/25 09:27) Aspirin Enteric Coated Tablet (Ecotrin E (06/12/25 10:00) Hydrochlorothiazide Tablet (Hydrochlorot (06/12/25 10:00) Hydrocodone-Acet 10/325mg Tab ([place] 10/ (06/11/25 12:00) Nifedipine Er (Procardia Xl (Time-Releas (06/12/25 10:00) Sertraline Hcl (Zoloft) (06/11/25 22:00) (Nf) Buspirone Hcl (06/11/25 22:00) (Nf) Cholecalciferol (Vitamin D-3 Super (06/12/25 10:00) (Nf) Divalproex Sodium (06/11/25 14:00) (Nf) Hydroxyzine Hcl (06/11/25 11:00) (Nf) Montelukast Sodium (Singulair) (06/12/25 10:00) (Nf) Quetiapine Fumerate (Seroquel Xr) (06/11/25 18:00) (Nf) Rosuvastatin Calcium (Crestor) (06/12/25 10:00) Vital Signs Date Time Temp Pulse Resp B/P (MAP) Pulse Ox O2 Delivery O2 Flow Rate FiO2 06/11/25 11:01 94 20 161/85 06/11/25 10:14 86 17 166/84 06/11/25 09:54 90 06/11/25 09:11 186/108 06/11/25 08:39 82 14 179/111 06/11/25 08:19 90 20 180/100 (126) 96 06/11/25 07:54 84 18 121/91 06/11/25 07:53 83 06/11/25 07:41 85 14 97 Room Air* 0 21 06/11/25 07:41 97.9 85 14 121/91 (101) 97 97.9 06/11/25 07:17 97.6 91 20 182/110 (134) 92 97.6 06/11/25 07:15 96 06/11/25 07:07 96.7 103 20 97 96.7 Laboratory Tests Test 06/11/25 07:23 White Blood Count 15.6 10^3/uL (4.4-10.8) H Medications Medications Dose Ordered Sig/Kj Route Start Time Stop Time Status Last Admin Dose Admin Hydralazine HCl 20 mg ONCE ONCE IV 06/11/25 09:00 06/11/25 09:07 DC 06/11/25 09:11 20 MG Morphine Sulfate 4 mg ONCE ONCE IV 06/11/25 07:30 06/11/25 07:31 DC 06/11/25 07:54 4 MG Morphine Sulfate 4 mg ONCE ONCE IV 06/11/25 09:45 06/11/25 10:07 DC 06/11/25 10:14 4 MG Ondansetron HCl 4 mg ONCE ONCE IV 06/11/25 07:30 06/11/25 07:31 DC 06/11/25 07:54 4 MG Ondansetron HCl 4 mg ONCE ONCE IV 06/11/25 09:45 06/11/25 10:07 DC 06/11/25 10:15 4 MG Sodium Chloride 1,000 ml @ 1,000 mls/hr Q1H ONCE IV 06/11/25 07:30 06/11/25 08:29 DC 06/11/25 07:52 1,000 MLS/HR Assessment/Plan Assessment/Plan Assessment: Hypertensive emergency, Acute kidney injury, Atypical chest pain, Leukocytosis, Uncontrolled hypertension, Diabetes, Hyperlipidemia, Depression, Schizophrenia, Plan: Admit to Tele, Cardiology consult, ECHO, BNP, Lipid panel. A1c, TSH, IV hydration, Pain management, PRN antihypertensives, Accu checks Q AC&HS with sliding scale, Home mediations reconciled, Plan discussed with: Patient My Orders Orders - CONSTANCE XAVIER Procedure Category Date Status Time Admit ADMIT 06/11/25 Transmitted 09: Code Status CODE 06/11/25 Transmitted 09:27 Ondansetron Hcl PHA 06/11/25 Logged (Zofran) 09:30 Docusate Sodium PHA 06/11/25 Logged Capsule (Colace 09:30 Complete Blood Count LAB 06/12/25 Verified 04:00 Comprehensive LAB 06/12/25 Verified Metabolic Panel 04:00 Cardiac DIET 06/11/25 Transmitted Diet-2gna,Lofat,Lochol Breakfast Echo 2d Mode Cardiac US 06/11/25 Logged DOP 09:27 Condition: Serious [facility] 06/11/25 In Process 09:27 Acetaminophen Tablet PHA 06/11/25 Logged (Tylenol Tablet) 09:30 Nitroglycerin PHA 06/11/25 Logged Sublingual (Ntrostat 09:30 Morphine Sulfate PHA 06/11/25 Logged Injection 09:30 Notify Of Changes [facility] 06/11/25 In Process From Base 09:27 Trimming Machine Operator For [facility] 06/11/25 In Process 24 Hours 09:27 Emergency Dysrhythmia KIERA 06/11/25 In Process Protocol 09:27 Rhythm Strips Once [facility] 06/11/25 In Process Every Shift 09:27 Oxygen By Nasal RT 06/11/25 Transmitted Cannula 09:27 Aspirin Enteric PHA 06/12/25 Transmitted Coated Tablet 10:00 Hydrochlorothiazide PHA 06/12/25 Transmitted Tablet (Hydrochlorot 10:00 Hydrocodone-Acet PHA 06/11/25 Transmitted 10/325mg Tab ([place] 12:00 Nifedipine Er PHA 06/12/25 Transmitted (Procardia Xl 10:00 Sertraline Hcl PHA 06/11/25 Verified (Zoloft) 22:00 (Nf) Buspirone Hcl PHA 06/11/25 Verified 22:00 (Nf) Cholecalciferol PHA 06/12/25 Verified (Vitamin D-3 Super 10:00 (Nf) Divalproex Sodium PHA 06/11/25 Verified 14:00 (Nf) Hydroxyzine Hcl PHA 06/11/25 Verified 11:00 (Nf) Montelukast PHA 06/12/25 Verified Sodium (Singulair) 10:00 (Nf) Quetiapine PHA 06/11/25 Verified Fumerate (Seroquel Xr) 18:00 (Nf) Rosuvastatin PHA 06/12/25 Verified Calcium (Crestor) 10:00 Date of Service: Jun 11, 2025 Billing Provider: CONSTANCE XAVIER Common Visit Codes: [id number] INP/OBS CARE (MOD) CONSTANCE XAVIER Jun 11, 2025 11:42
[2025-06-11 12:12] LABS: Triglycerides 142 mg/dL (< 150)
[2025-06-11 12:14] LABS: Cholesterol 199 mg/dL (< 200); HDL Cholesterol 49 mg/dL (40-59)
[2025-06-11] MEDS: ASPirin-EC 81 mg tab PO SCH (12:31)
[2025-06-11] MEDS: hydroCHLOROthiazide 25 MG TAB PO SCH (12:32)
[2025-06-11] MEDS: HYDROcodone-ACET 10/325MG TAB PO SCH (12:33)
[2025-06-11 13:10] VITALS: BP 165/87; PULSE 101; RESP 20; TEMP 97.6; O2SAT 98
[2025-06-11] MEDS: hydrOXYzine 25 MG TAB or CAP PO PRN (14:50)
[2025-06-11] MEDS: NITROGLYCERIN 0.4 MG SL TAB SL PRN (14:52)
[2025-06-11 15:08] VITALS: BP 165/87; PULSE 101; RESP 20; TEMP 97.6; O2SAT 98
[2025-06-11 17:00] VITALS: BP 154/109; PULSE 105; RESP 16; TEMP 97.6; O2SAT 95
--- NOTE | 2025-06-11 18:32 | ECG ---
[facility] Test Date: 2025-06-11 Test Time: 07:15:29 Pat Name: ANGELICA BYERS Department: Room: 0215T A Gender: M Carpenter: DEBORAH : 1970 Requested By: SHILPI SAUL Order Number: [id number] Reading MD: Cassius Rubin Measurements Intervals [place] Rate: 96 P: 68 MT: 164 QRS: 48 QRSD: 103 T: 57 QT: 359 QTc: 454 Interpretive Statements Sinus rhythm ELVIS, consider biatrial enlargement Baseline wander in lead(s) V1,V2,V3,V4 Electronically Signed On 06-16-2025 10:08:08 PST by Cassius Rubin Please click the below link to view image of tracing.
[2025-06-11 20:00] VITALS: PULSE 109; RESP 18; O2SAT 95
[2025-06-11 21:25] VITALS: BP 154/116; PULSE 117; RESP 18; TEMP 98.5; O2SAT 96
[2025-06-11] MEDS: ATORVASTATIN 20 MG TAB PO SCH (21:30)
[2025-06-11] MEDS: SERTRALINE HCL 50 MG TAB PO SCH (21:32)
[2025-06-11] MEDS ORDERED: PATIENTS OWN MEDICATION (Buspirone Hcl 30 MG) PO SCH (22:00)
[2025-06-12] VITALS (9 sets, daily range): BP systolic 140–164; BP diastolic 95–114; PULSE 65–112; RESP 17–21; TEMP 97.6–98.3; O2SAT 93–95
[2025-06-12] MEDS: TEMAZEPAM 15 MG CAP PO ONE (01:35)
[2025-06-12 05:58] LABS: Hematocrit 45.9 % (41.0-53.0); Hemoglobin 15.9 g/dL (13.5-17.5); Mean Corpuscular Hemoglobin 29.5 pg (28.0-32.0); Mean Corpuscular Volume 85.3 fL (80.0-100.0); Nucleated Red Blood Cells % 0.0 %
[2025-06-12 06:20] LABS: Alanine Aminotransferase 35 U/L (7-40); Anion Gap 15 (5-15); Carbon Dioxide 22 mmol/L (20-31); Chloride 104 mmol/L (98-107); Sodium 141 mmol/L (136-145)
[2025-06-12 06:21] LABS: BUN/Creatinine Ratio 18.8 (10.0-20.0); Blood Urea Nitrogen 22 mg/dL (9-23)
[2025-06-12 06:23] LABS: Bilirubin, Total 0.3 mg/dL (0.2-1.0)
[2025-06-12 06:24] LABS: Albumin 5.4 g/dL (3.2-4.8); Alkaline Phosphatase 119 U/L (46-116); Calcium 10.5 mg/dL (8.7-10.4); Glucose 183 mg/dL (74-106); Potassium 3.1 mmol/L (3.5-5.1); Total Protein 8.5 g/dL (5.7-8.2)
[2025-06-12] MEDS: CHOLECALCIFEROL (VITD3) 1,000UNIT=25mCg TAB PO SCH (09:46)
[2025-06-12] MEDS: MONTELUKAST SODIUM 10 MG TAB PO SCH (09:47)
[2025-06-12] MEDS ORDERED: PATIENTS OWN MEDICATION (Rosuvastatin Calcium (Crestor) 20 MG) PO SCH (10:00)
[2025-06-12] MEDS ORDERED: PATIENTS OWN MEDICATION (Cholecalciferol (Vitamin D-3 Super Strengt) 1 TAB) PO SCH (10:00)
--- NOTE | 2025-06-12 12:37 | DVHPN2 ---
Reviewed: Care Plan, H&P, Labs, Medications, Previous Orders, Radiology Changes from previous H/P or p: No Changes Eyes: No Pain, No Vision change, No Conjunctivae inflammation, No Eyelid inflammation, No Other, No Redness ENT: No Ear pain, No Ear discharge, No Nose pain, No Nose discharge, No Nose congestion, No Mouth pain, No Mouth swelling, No Throat pain, No Throat swelling, No Other Cardiovascular: Chest Pain (chest pressure radiates to left arm); No Palpitations, No Orthopnea, No Paroxysmal Noc. Dyspnea, No Edema, No Lt Headedness, No Other Respiratory: No Cough, No Dry; Shortness of breath; No SOB with excertion, No Wheezing, No Hemoptysis, No Pleuritic Pain, No Sputum, No Other Gastrointestinal: No Nausea, No Vomiting, No Abdominal Pain, No Diarrhea, No Constipation, No Melena, No Hematochezia, No Other Genitourinary: No Dysuria, No Frequency, No Incontinence, No Hematuria, No Retention, No Other Musculoskeletal: No other, No neck pain, No shoulder pain, No arm pain, No back pain, No hand pain, No leg pain, No foot pain Skin: No Rash, No Lesions, No Jaundice, No Bruising, No Other Objective Vitals Vital Signs Date Time Temp Pulse Resp B/P (MAP) Pulse Ox O2 Delivery O2 Flow Rate FiO2 06/12/25 09:47 144/95 06/12/25 09:00 97.6 102 19 95 97.6 06/12/25 07:50 Room Air* 0 21 Intake/Output Intake and Output 06/12/25 07:00 Intake Total 410 ml Balance 410 ml Intake Oral 410 ml # Voids 8 Medications Current Medications Medications Dose Ordered Sig/Kj Route Start Time Stop Time Status Last Admin Dose Admin Ondansetron HCl 4 mg Q4HP PRN IV 06/11/25 09:30 Docusate Sodium 100 mg BIDPRN PRN PO 06/11/25 09:30 Acetaminophen 650 mg Q6HP PRN PO 06/11/25 09:30 Nitroglycerin 0.4 mg Q5MINP PRN SL 06/11/25 09:30 06/11/25 15:56 0.4 MG Morphine Sulfate 2 mg Q30M PRN IV 06/11/25 09:30 Aspirin 81 mg DAILY PO 06/11/25 12:15 11/6/25 09:45 81 MG Hydrochlorothiazide 25 mg DAILY PO 06/11/25 12:15 06/12/25 09:46 25 MG Acetaminophen/ Hydrocodone Bitart 1 tab QID PO 06/11/25 12:00 06/12/25 12:17 1 TAB Nifedipine 30 mg DAILY PO 06/11/25 12:15 06/12/25 09:47 30 MG Sertraline HCl 100 mg BID PO 06/11/25 22:00 06/12/25 09:45 100 MG Patient Own Medication 30 mg BID PO 06/11/25 22:00 UNV Patient Own Medication 1 tab DAILY PO 06/12/25 10:00 UNV Patient Own Medication 1 tab TID PO 06/11/25 14:00 Cancel Patient Own Medication 1 tab BID PRN PO 06/11/25 11:00 UNV Montelukast Sodium 10 mg DAILY PO 06/12/25 10:00 06/12/25 09:47 10 MG Patient Own Medication 20 mg DAILY PO 06/12/25 10:00 UNV Buspirone HCl 30 mg BID PO 06/11/25 22:00 06/12/25 09:46 30 MG Cholecalciferol 2,000 unit DAILY PO 06/12/25 10:00 06/12/25 09:46 2,000 UNIT Hydroxyzine Pamoate 50 mg BIDP PRN PO 06/11/25 13:00 06/11/25 23:05 50 MG Atorvastatin Calcium 80 mg HS PO 06/11/25 22:00 06/11/25 21:30 80 MG Divalproex Sodium 500 mg HS PO 06/11/25 22:00 06/11/25 21:32 500 MG Laboratory Results Laboratory Tests 06/12/25 04:53 Chemistry Test 06/12/25 04:53 Albumin 5.4 g/dL (3.2-4.8) H Calcium Level 10.5 mg/dL (8.7-10.4) H Total Protein 8.5 g/dL (5.7-8.2) H LFT Test 06/12/25 04:53 Alanine Aminotransferase (ALT) 35 U/L (7-40) Alkaline Phosphatase 119 U/L (46-116) H Aspartate Amino Transferase (AST) 21 U/L (13-40) Total Bilirubin 0.3 mg/dL (0.2-1.0) Labs and/or images reviewed: Labs reviewed by me, Image(s) reviewed by me Assessment/Plan Assessment/Plan Sepsis unknown etiology with white count 20 K: Blood cultures urine cultures Levaquin Cecily test, rapid flu test Acute chest pain rule out coronary artery disease: Troponin negative x3 Consult for Cardiology Dr. Rubin treatment per ACS protocol Hypertensive emergency, Acute kidney injury, Leukocytosis, Uncontrolled hypertension, Diabetes, Hyperlipidemia, : Lipitor Depression, Schizophrenia, BuSpar, Depakote Chronic current smoker: Counseled Time Spent 70 minutes Advanced care planning time 20 minutes Patient is full code Plan discussed with: Patient My Orders Orders - ANNE MARIE RAYMOND MD Procedure Category Date Status Time * Cardiology Consult CONS 06/12/25 Verified 12:21 Date of Service: Jun 12, 2025 Billing Provider: ANNE MARIE RAYMOND MD Common Visit Codes: [id number] CARE 30-74 MIN Secondary Visit Codes: [id number] CHNG SMOKING >10MIN ANNE MARIE RAYMOND MD Jun 12, 2025 12:37
--- NOTE | 2025-06-12 14:12 | DVHINCON2 ---
Date Seen: Jun 12, 2025 Referring Physician MD Leo Reason for Consultation Chest pain History of Present Illness This is a 54-year-old man who presented to the emergency room with a chief complaint of chest pain two nights prior. Describes his chest pain as left- sided, aching in nature, radiating to the left upper extremity and left upper back, constant, and associated with mild SOB, wheezing, and cough. Follows up in the outpatient setting with primary informatica architect Dr. Barclay undergoing a nonischemic chemical induced stress test and transthoracic echocardiogram revealing an LVEF of 55% earlier this year for a cardiac risk stratification. He has a follow-up appointment next month. Significant medical history includes hypertension, dyslipidemia, ofa-slemvba-uoswgsagw diabetes mellitus, COPD, obesity, depression, schizophrenia, current tobacco use including for a pack- years, and cannabinoids. Past Medical History Past medical history reviewed. No other significant than mentioned above. Past Surgical History Umbilical hernia repair Family History: Diabetes mellitus G8 MOTHER Family History Family history unknown, adopted. Social History Admits to one pack of cigarettes per day for the past 40 years. Admits to cannabinoid use. Denies the use of alcohol. Allergies: Coded Allergies: Metoclopramide (Verified Allergy, Unknown, 11/06/23) Penicillins (Verified Allergy, Unknown, 11/06/23) Home Meds Active Scripts Sucralfate (CARAFATE) 1 Gm Tab, 1 GM OR TID for 14 Days, #42 TAB Prov:REON BARRIOS RESIDENT 07/22/24 Pantoprazole Sodium Sesquihydr (Protonix) 40 Mg Tab, 40 MG PO DAILY for 30 Days, #30 TAB Prov:ERON BARRIOS RESIDENT 07/22/24 Reported Medications Dulaglutide (Trulicity) Unknown Strength Inj, SC, INJ 08/26/24 Hydrocodone-Acetaminophen (Hydrocodone Bitartrate/AC 10-325 mg) 1 Tab Tab, 1 TAB PO QID, TAB 08/26/24 Aspirin (Aspir-Low) 81 Mg Tab, 81 MG PO DAILY for 30 Days, MG 08/26/24 Dlwdqnagabp-Sbygqtbjcakz-Tssum (Trelegy Ellipta 200-62.5-25 Mcg/INH) Unknown Strength Aer, IN, AER 08/26/24 Quetiapine Fumerate (Seroquel Xr) 200 Mg Tab, 1 TAB PO QPM, #30 TAB 1 Refill 07/20/24 Irbesartan (Avapro) 300 Mg Tab, 150 MG PO DAILY for 30 Days, #30 04/23/24 Nifedipine (Nifedipine Er) 30 Mg Tab, 1 TAB PO DAILY for 90 Days, #90 04/23/24 Cholecalciferol (Vitamin D-3 Super Strengt) 2,000 Unit Tab, 1 TAB PO DAILY for 90 Days, #90 04/23/24 Divalproex Sodium (Divalproex Sodium) 500 Mg Tab, 1 TAB PO TID for 90 Days, #270 04/23/24 Hydrochlorothiazide (Hydrochlorothiazide) 25 Mg Tab, 1 TAB PO DAILY for 90 Days, #90 04/23/24 Sertraline Hcl (Sertraline Hcl) 50 Mg Tab, 100 MG PO BID for 90 Days, #180 04/23/24 Varenicline Tartrate (Varenicline Starti... 0.5 mg X 11 & 1 mg X 42) 1 Tab Tab, TAB PO UD for 30 Days, #53 04/23/24 Beclomethasone Dipropionate (Qvar Redihaler) 80 Mcg/Act Aer, MCG INH UD for 30 Days, #120 04/23/24 Hydroxyzine Hcl (Hydroxyzine Hcl) 50 Mg Tab, 1 TAB PO BID PRN for ANXIETY for 90 Days, #180 04/23/24 Buspirone Hcl (Buspirone Hcl) 15 Mg Tab, 30 MG PO BID for 90 Days, #180 04/23/24 Albuterol Sulfate (Albuterol Sulfate Hfa) 108 Mcg/Act Aer, 2 PUFF INH Q6HR for 24 Days, #8.5 04/23/24 Metformin Hydrochloride (Metformin Hcl) 1,000 Mg Tab, 1 TAB PO BID for 90 Days, #180 04/23/24 Montelukast Sodium (Singulair) 5 Mg Chw, 2 TAB PO DAILY, #30 TAB 5 Refills 09/03/19 Losartan Potassium (Losartan Potassium) 50 Mg Tab, 50 MG PO DAILY for 30 Days, MG 09/03/19 Rosuvastatin Calcium (Crestor) 20 Mg Tab, 20 MG PO DAILY, TAB 09/03/19 Home Meds Home medications reviewed. Current Medications Current Medications Medications (Trade) Dose Ordered Sig/Kj Route PRN Reason Start Time Stop Time Status Last Admin Sertraline HCl (Zoloft) 100 mg BID PO 06/11/25 22:00 06/12/25 09:45 Patient Own Medication 30 mg BID PO 06/11/25 22:00 UNV Patient Own Medication 1 tab DAILY PO 06/12/25 10:00 UNV Patient Own Medication 1 tab TID PO 06/11/25 14:00 Cancel Montelukast Sodium (Singulair Tablet) 10 mg DAILY PO 06/12/25 10:00 06/12/25 09:47 Patient Own Medication 1 tab QPM PO 06/11/25 18:00 06/11/25 18:02 DC Patient Own Medication 20 mg DAILY PO 06/12/25 10:00 UNV Buspirone HCl (Buspar Tablet) 30 mg BID PO 06/11/25 22:00 06/12/25 09:46 Cholecalciferol (Vitamin D3 Tablet) 2,000 unit DAILY PO 06/12/25 10:00 06/12/25 09:46 Atorvastatin Calcium (Lipitor) 80 mg HS PO 06/11/25 22:00 06/11/25 21:30 Divalproex Sodium (Depakote "Dr" Tablet) 500 mg TID PO 06/11/25 22:00 06/11/25 17:08 DC Divalproex Sodium (Depakote "Dr" Tablet) 500 mg HS PO 06/11/25 22:00 06/11/25 21:32 Levofloxacin/ Dextrose 100 ml @ 100 mls/hr DAILY IV 06/13/25 10:00 Review of Systems Constitutional: No symptom reported Ears, Nose, & Throat: No symptom reported Eyes: No symptom reported Neurological: No symptoms reported Pulmonary/Respiratory: SOB, wheezing, cough Cardiovascular: Chest pain Gastrointestinal: No symptom reported Genitourinary: No symptom reported Musculoskeletal: No symptom reported Skin: No symptom reported Psychiatric: No symptom reported Endocrine: No symptom reported Hemotologic/Lymphatic: No symptom reported Vital Signs Vital Signs Date Time Temp Pulse Resp B/P (MAP) Pulse Ox O2 Delivery O2 Flow Rate FiO2 06/12/25 09:47 144/95 06/12/25 09:00 97.6 102 19 95 97.6 06/12/25 07:50 Room Air* 0 21 Physical Exam General Appearance: Cooperative. Well developed. Obese. In no acute distress Head Exam: Normal inspection Neck Exam: Normal inspection. Non-tender. Normal alignment Pulmonary/Respiratory: Chest non-tender. Expiratory wheeze into bilateral breath sounds Cardiovascular/Chest: Regular rate and rhythm. S1, S2. NSR. No murmurs. No JVD. Peripheral Pulses: 2+ Radial (R). 2+ Radial (L). 2+ Pedal (R). 2+ Pedal (L) Abdominal Exam: Normal bowel sounds. Soft. Ankle Exam: Negative ankle edema Lower extremities: Negative lower extremity edema Neuro/Mental Status: A&O x4. Coherent Thoughts/Psych: Normal thought pattern. Appropriate mood and affect. Uneasy, rambling thoughts Appearance: In no acute distress Skin Exam: Normal inspection. Normal color. Warm. Dry Labs/Diagnostic Data Labs Test 06/12/25 04:53 06/11/25 10:25 06/11/25 07:23 Range/Units White Blood Count 20.0 #H 4.4-10.8 10^3/uL Red Blood Count 5.38 4.5-5.90 10^6/uL Hemoglobin 15.9 13.5-17.5 g/dL Hematocrit 45.9 41.0-53.0 % Mean Corpuscular Volume 85.3 80.0-100.0 fL Mean Corpuscular Hemoglobin 29.5 28.0-32.0 pg Mean Corpuscular Hemoglobin Concent 34.6 32.0-36.0 g/dL Red Cell Distribution Width 14.4 H 11.8-14.3 % Platelet Count 356 140-450 10^3/uL Mean Platelet Volume 10.2 6.9-10.8 fL Neutrophils (%) (Auto) 84.7 H 37.0-80.0 % Lymphocytes (%) (Auto) 7.9 L 10.0-50.0 % Monocytes (%) (Auto) 7.3 0.0-12.0 % Eosinophils (%) (Auto) 0.0 0.0-7.0 % Basophils (%) (Auto) 0.1 0.0-2.0 % Neutrophils # (Auto) 16.9 H 1.6-8.6 10 ^3/uL Lymphocytes # (Auto) 1.6 0.4-5.4 10 ^3/uL Monocytes # (Auto) 1.5 H 0-1.3 10 ^3/uL Eosinophils # (Auto) 0 0-0.8 10 ^3/uL Basophils # (Auto) 0 0-0.2 10 ^3/uL Nucleated Red Blood Cells 0.0 % Sodium Level 141 136-145 mmol/L Potassium Level 3.1 L 3.5-5.1 mmol/L Chloride Level 104 98-107 mmol/L Carbon Dioxide Level 22 20-31 mmol/L Anion Gap 15 5-15 Blood Urea Nitrogen 22 9-23 mg/dL Creatinine 1.17 0.700-1.30 mg/dL Glomerular Filtration Rate Calc 73 >90 mL/min BUN/Creatinine Ratio 18.8 10.0-20.0 Serum Glucose 183 H 74-106 mg/dL Calcium Level 10.5 H 8.7-10.4 mg/dL Total Bilirubin 0.3 0.2-1.0 mg/dL Aspartate Amino Transferase (AST) 21 13-40 U/L Alanine Aminotransferase (ALT) 35 7-40 U/L Alkaline Phosphatase 119 H 46-116 U/L Total Protein 8.5 H 5.7-8.2 g/dL Albumin 5.4 H 3.2-4.8 g/dL Troponin I High Sensitivity 3 L </=54 ng/L Hemoglobin A1c 6.6 H <5.7 % A1C B-Type Natriuretic Peptide 9.97 0-100 pg/mL Triglycerides Level 142 < 150 mg/dL Cholesterol Level 199 < 200 mg/dL LDL Cholesterol 129 H < 100 mg/dL HDL Cholesterol 49 40-59 mg/dL Thyroid Stimulating Hormone (TSH) 0.89 0.55-4.78 uIU/mL Assessment Chest pain in the setting of hypertensive emergency Rule out structural heart disease Dyslipidemia Cuy-kbfkoyq-jdoqysoiv diabetes mellitus COPD with current exacerbation Nicotine dependence Acute kidney injury Cannabinoid use Obesity Plan/Recommendation Assessment (Dr. Rubin) * Transthoracic echocardiogram ordered, pending at this time * Multiple 12 lead electrocardiograms revealed a normal sinus rhythm without ST- T wave changes suggestive of ischemia * Serial troponin levels are negative Plan: The patient reports undergoing an unremarkable transthoracic echocardiogram and nonischemic chemical induced stress test with Dr. Barclay earlier this year. He was offered to undergo a subsequent stress test to further assess for coronary ischemia which he refused. Continue aggressive blood pressure control for a target SBP < 140 mmHg. In the setting of an unremarkable echocardiogram, there is no further cardiac workup indicated at this time. Patient to follow-up with primary informatica architect in the outpatient setting scheduled. Consider breathing treatments for COPD exacerbation as well as electrolyte replenishment as needed. Kindly call if you need to re-consult. Thank you for allowing us to participate in this patient's care. This medical document was created using an electronic medical record system with voice recognition software and computerized dictation system. Although this document has been carefully reviewed, there might still be some phonetic and typographical errors. Occasional wrong-word or ``sound-alike substitutions may have occurred due to the inherent limitations of voice recognition software. These areas are purely typographical due to imperfections of the software programs and do not reflect any compromise in the patient's medical care. Please read the chart carefully and recognize, using context, where these substitutions have occurred. Plan discussed with: Patient, Other NYHA Physical activity limitations: NA Date of Service: Jun 12, 2025 Billing Provider: WING MELO Cardiology Common Codes: [id number] INP/OBS CARE (High) WING MELO Jun 12, 2025 14:12
--- NOTE | 2025-06-12 14:51 | DVHSR ---
APPROVED REPORT EXAM: LIMITED Two-dimensional and M-mode echocardiogram with Doppler and color Doppler. Blood Pressure: 166/84 mmHg INDICATION Chest Pain Hypertension RISK FACTORS Obesity: Height: 5' 10", Weight: 315 DIMENSIONS LVDd 5.7 (3.8-5.7cm) LA (2D) 4.0 (1.9-4.0cm) Aortic Root 4.0 (2.0-3.7cm) LVDs 4.2 (2.5-4.0cm) LA (MM) (1.9-4.0cm) Aortic Cusp Exc 2.0 (1.5-2.0cm) EF (%) 50.0 (55-70%) Rt. Atrium 4.0 (1.9-4.0cm) Asc. Aorta cm IVSd 1.2 (0.7-1.1cm) RV (D) (1.8-2.4cm) PWd 1.2 (0.7-1.1cm) Mitral Valve Mitral Mitral Stenosis E wave 1.00m/s MV Mean GR. mmHg A wave 0.90m/s MV Peak GR. mmHg E/A ratio 1.1 2D MVA cm2 Aortic Valve Aortic Valve Aortic Stenosis V1 1.30m/s AO Mean GR. 4mmHg V2 1.60m/s AO Peak GR. 11mmHg LVOT Diameter 2.2 (1.8-2.4cm) Doppler HARSH 3.09cm2 Pulmonic Valve V2 1.20m/s Other Information Quality : Technically Limited Rhythm : Technically limited study due to body habitus. Conclusion Technically good study sinus rhythm. Concentric LVH with left atrial enlargement and aortic root enlargement. Valves are normal. EF of 60% with normal RV function. Dopplers unremarkable. No pericardial effusion masses or vegetations.
[2025-06-12] MEDS: POTASSIUM CHL 20 Meq TABLET PO ONE (15:34)
[2025-06-12 16:30] LABS: Urine Protein, UAD 3+ (Negative)
[2025-06-12 16:47] LABS: COVID19 ANTIGEN SOFIA FIA NEGATIVE (NEGATIVE)
[2025-06-12] MEDS: levoFLOXacin 500 MG TAB PO ONE (18:08)
[2025-06-12] MEDS: ATORVASTATIN 20 MG TAB PO SCH (22:06)
[2025-06-13 01:00] VITALS: BP 149/105; PULSE 102; RESP 19; TEMP 98; O2SAT 92
[2025-06-13 05:00] VITALS: BP 149/92; PULSE 102; RESP 18; TEMP 98.1; O2SAT 94
[2025-06-13] MEDS: LORazepam 0.5 MG TAB PO PRN (06:10)
[2025-06-13 08:00] VITALS: RESP 17
[2025-06-13] MEDS ORDERED: LEVO500T91 PO (09:18)
--- NOTE | 2025-06-13 09:19 | DVHPN2 ---
Reviewed: Care Plan, H&P, Labs, Medications, Previous Orders, Radiology Changes from previous H/P or p: No Changes Eyes: No Pain, No Vision change, No Conjunctivae inflammation, No Eyelid inflammation, No Other, No Redness ENT: No Ear pain, No Ear discharge, No Nose pain, No Nose discharge, No Nose congestion, No Mouth pain, No Mouth swelling, No Throat pain, No Throat swelling, No Other Cardiovascular: Chest Pain (chest pressure radiates to left arm); No Palpitations, No Orthopnea, No Paroxysmal Noc. Dyspnea, No Edema, No Lt Headedness, No Other Respiratory: No Cough, No Dry; Shortness of breath; No SOB with excertion, No Wheezing, No Hemoptysis, No Pleuritic Pain, No Sputum, No Other Gastrointestinal: No Nausea, No Vomiting, No Abdominal Pain, No Diarrhea, No Constipation, No Melena, No Hematochezia, No Other Genitourinary: No Dysuria, No Frequency, No Incontinence, No Hematuria, No Retention, No Other Musculoskeletal: No other, No neck pain, No shoulder pain, No arm pain, No back pain, No hand pain, No leg pain, No foot pain Skin: No Rash, No Lesions, No Jaundice, No Bruising, No Other Objective Vitals Vital Signs Date Time Temp Pulse Resp B/P (MAP) Pulse Ox O2 Delivery O2 Flow Rate FiO2 06/13/25 05:00 98.1 102 18 149/92 (111) 94 98.1 06/12/25 20:00 Room Air* 0 21 Intake/Output Intake and Output 06/13/25 07:00 Intake Total 1450 ml Balance 1450 ml Intake Oral 1450 ml # Voids 10 # Bowel Movements 2 Medications Current Medications Medications Dose Ordered Sig/Kj Route Start Time Stop Time Status Last Admin Dose Admin Ondansetron HCl 4 mg Q4HP PRN IV 06/11/25 09:30 Docusate Sodium 100 mg BIDPRN PRN PO 06/11/25 09:30 Acetaminophen 650 mg Q6HP PRN PO 06/11/25 09:30 Nitroglycerin 0.4 mg Q5MINP PRN SL 06/11/25 09:30 06/11/25 15:56 0.4 MG Morphine Sulfate 2 mg Q30M PRN IV 06/11/25 09:30 Aspirin 81 mg DAILY PO 06/11/25 12:15 06/12/25 09:45 81 MG Hydrochlorothiazide 25 mg DAILY PO 06/11/25 12:15 06/12/25 09:46 25 MG Acetaminophen/ Hydrocodone Bitart 1 tab QID PO 06/11/25 12:00 06/13/25 05:33 1 TAB Nifedipine 30 mg DAILY PO 06/11/25 12:15 06/12/25 09:47 30 MG Sertraline HCl 100 mg BID PO 06/11/25 22:00 06/12/25 22:03 100 MG Patient Own Medication 30 mg BID PO 06/11/25 22:00 UNV Patient Own Medication 1 tab DAILY PO 06/12/25 10:00 UNV Patient Own Medication 1 tab TID PO 06/11/25 14:00 Cancel Patient Own Medication 1 tab BID PRN PO 06/11/25 11:00 UNV Montelukast Sodium 10 mg DAILY PO 06/12/25 10:00 06/12/25 09:47 10 MG Patient Own Medication 20 mg DAILY PO 06/12/25 10:00 UNV Buspirone HCl 30 mg BID PO 06/11/25 22:00 06/12/25 22:04 30 MG Cholecalciferol 2,000 unit DAILY PO 06/12/25 10:00 06/12/25 09:46 2,000 UNIT Hydroxyzine Pamoate 50 mg BIDP PRN PO 06/11/25 13:00 06/13/25 00:48 50 MG Divalproex Sodium 500 mg HS PO 06/11/25 22:00 06/12/25 22:03 500 MG Atorvastatin Calcium 20 mg HS PO 06/12/25 22:00 06/12/25 22:06 20 MG Levofloxacin 500 mg DAILY PO 06/13/25 10:00 Lorazepam 1 mg Q8HP PRN PO 06/13/25 06:00 06/13/25 06:10 1 MG Laboratory Results Laboratory Tests 06/12/25 04:53 Urinalysis Test 06/12/25 14:35 Urine Color Yellow (Yellow) Urine Clarity Clear (Clear) Urine pH 5.5 (5.0-9.0) Urine Specific [place] 1.032 (1.001-1.035) Urine Protein 3+ (Negative) H Urine Ketones Negative (Negative) Urine Blood 2+ /uL (Negative) H Urine Nitrite Negative (Negative) Urine Bilirubin Negative (Negative) Urine Urobilinogen Normal mg/dL (Negative) Urine Leukocyte Esterase Negative /uL (Negative) Urine RBC 2 /hpf (0 - 3) Urine Microscopic WBC 4 /HPF (0-3) H Urine Squamous Epithelial Cells Few /hpf (<5) Urine Bacteria Few /hpf (None Seen) H Urine Mucus Few (None Seen) Urine Glucose Normal mg/dL (Normal) Labs and/or images reviewed: Labs reviewed by me, Image(s) reviewed by me Assessment/Plan Assessment/Plan Sepsis unknown etiology with white count 20 K Cecily test negative flu test negative treated with Levaquin Acute chest pain secondary to high blood pressure coronary artery disease ruled out Troponin negative x3 Consult for Cardiology Dr. Rubin treatment per ACS protocol, Cardiolite stress test and echocardiogram done by Dr. Diego one year ago normal, patient was offered another stress test, he refused Hypertensive emergency, Acute kidney injury, Leukocytosis, Uncontrolled hypertension, COPD Diabetes, Hyperlipidemia, : Lipitor Depression, Schizophrenia, BuSpar, Depakote Chronic current smoker: Counseled Marijuana abuse Time Spent 65 minutes Advanced care planning time 20 minutes Patient is full code Plan discussed with: Patient My Orders Orders - ANNE MARIE RAYMOND MD Procedure Category Date Status Time * Cardiology Consult CONS 06/12/25 Transmitted 12:21 Urine Bacterial JULIET 06/12/25 In Process Culture 12:27 Blood Culture JULIET 06/12/25 In Process 12:27 Date of Service: Jun 13, 2025 Billing Provider: ANNE MARIE RAYMOND MD Common Visit Codes: [id number] INP/OBS CARE(HIGH) ANNE MARIE RAYMOND MD Jun 13, 2025 09:19
--- NOTE | 2025-06-13 09:23 | DVHDS2 ---
Discharge Summary Date of Admission Jun 11, 2025 at 09:27 Date of Discharge: Jun 13, 2025 Admitting Diagnosis Chest pain Wounds: None Labs/Diagnostic Data: Laboratory Results Test 06/12/25 14:35 06/12/25 04:53 06/11/25 10:25 06/11/25 07:23 Urine Color Yellow (Yellow) Urine Clarity Clear (Clear) Urine pH 5.5 (5.0-9.0) Urine Specific [place] 1.032 (1.001-1.035) Urine Protein 3+ (Negative) Urine Ketones Negative (Negative) Urine Blood 2+ /uL (Negative) Urine Nitrite Negative (Negative) Urine Bilirubin Negative (Negative) Urine Urobilinogen Normal mg/dL (Negative) Urine Leukocyte Esterase Negative /uL (Negative) Urine RBC 2 /hpf (0 - 3) Urine Microscopic WBC 4 /HPF (0-3) Urine Squamous Epithelial Cells Few /hpf (<5) Urine Bacteria Few /hpf (None Seen) Urine Mucus Few (None Seen) Urine Glucose Normal mg/dL (Normal) Influenza Type A Antigen Negative (Negative) Influenza Type B Antigen Negative (Negative) SARS-CoV-2 Antigen (Rapid) Negative (NEGATIVE) White Blood Count 20.0 10^3/uL (4.4-10.8) Red Blood Count 5.38 10^6/uL (4.5-5.90) Hemoglobin 15.9 g/dL (13.5-17.5) Hematocrit 45.9 % (41.0-53.0) Mean Corpuscular Volume 85.3 fL (80.0-100.0) Mean Corpuscular Hemoglobin 29.5 pg (28.0-32.0) Mean Corpuscular Hemoglobin Concent 34.6 g/dL (32.0-36.0) Red Cell Distribution Width 14.4 % (11.8-14.3) Platelet Count 356 10^3/uL (140-450) Mean Platelet Volume 10.2 fL (6.9-10.8) Neutrophils (%) (Auto) 84.7 % (37.0-80.0) Lymphocytes (%) (Auto) 7.9 % (10.0-50.0) Monocytes (%) (Auto) 7.3 % (0.0-12.0) Eosinophils (%) (Auto) 0.0 % (0.0-7.0) Basophils (%) (Auto) 0.1 % (0.0-2.0) Neutrophils # (Auto) 16.9 10 ^3/uL (1.6-8.6) Lymphocytes # (Auto) 1.6 10 ^3/uL (0.4-5.4) Monocytes # (Auto) 1.5 10 ^3/uL (0-1.3) Eosinophils # (Auto) 0 10 ^3/uL (0-0.8) Basophils # (Auto) 0 10 ^3/uL (0-0.2) Nucleated Red Blood Cells 0.0 % Sodium Level 141 mmol/L (136-145) Potassium Level 3.1 mmol/L (3.5-5.1) Chloride Level 104 mmol/L (98-107) Carbon Dioxide Level 22 mmol/L (20-31) Anion Gap 15 (5-15) Blood Urea Nitrogen 22 mg/dL (9-23) Creatinine 1.17 mg/dL (0.700-1.30) Glomerular Filtration Rate Calc 73 mL/min (>90) BUN/Creatinine Ratio 18.8 (10.0-20.0) Serum Glucose 183 mg/dL (74-106) Calcium Level 10.5 mg/dL (8.7-10.4) Total Bilirubin 0.3 mg/dL (0.2-1.0) Aspartate Amino Transferase (AST) 21 U/L (13-40) Alanine Aminotransferase (ALT) 35 U/L (7-40) Alkaline Phosphatase 119 U/L (46-116) Total Protein 8.5 g/dL (5.7-8.2) Albumin 5.4 g/dL (3.2-4.8) Troponin I High Sensitivity 3 ng/L (</=54) Hemoglobin A1c 6.6 % A1C (<5.7) B-Type Natriuretic Peptide 9.97 pg/mL (0-100) Triglycerides Level 142 mg/dL (< 150) Cholesterol Level 199 mg/dL (< 200) LDL Cholesterol 129 mg/dL (< 100) HDL Cholesterol 49 mg/dL (40-59) Thyroid Stimulating Hormone (TSH) 0.89 uIU/mL (0.55-4.78) Other Laboratory Tests 06/12/25 04:53 Brief Hx & Hospital Course: 54-year-old male with multiple medical problems including hypertension COPD diabetes hypercholesterolemia depression schizophrenia bipolar chronic current smoker chronic current marijuana abuse came in complaining of chest pain troponin negative x3 seen by Cardiology Dr. rubin. Echocardiogram and stress test one year ago by was normal. Cecily test negative flu test negative [place] count was [place] [id number]. Treated with the Levaquin. The patient was offered Cardiolite stress test during this admission but he refused. Echo 60 percent ejection fraction. At the time of discharge patient does not have any chest pain all vital signs are stable discharged home on Levaquin he will continue all his home medications. Educated about taking blood pressure medications regularly Consults/Reason for consult Cardiology Dr. Rubin Operations or Procedures Echocardiogram Condition at Discharge: Fair Final Diagnosis/Problems List Sepsis unknown etiology with white count 20 K Cecily test negative flu test negative treated with Levaquin Acute chest pain secondary to high blood pressure coronary artery disease ruled out Troponin negative x3 Consult for Cardiology Dr. Rubin treatment per ACS protocol, Cardiolite stress test and echocardiogram done by Dr. Diego one year ago normal, patient was offered another stress test, he refused Hypertensive emergency, Acute kidney injury, Leukocytosis, Uncontrolled hypertension, COPD Diabetes, Hyperlipidemia, : Lipitor Depression, Schizophrenia, BuSpar, Depakote Chronic current smoker: Counseled Marijuana abuse Discharge Disposition: Home Discharge Instruct/Medications Diet: Cardiac 2g Na,low cholest Activity: Light activity Follow Up/Referral: Resume all previous home medications including blood pressure medications Follow up with the primary Dr Medications: Levaquin Transmitted to pharmacy Reviewed all home meds Scheduled Albuterol Sulfate (Albuterol Sulfate Hfa), 2 PUFF INH Q6HR, (Reported) Aspirin (Aspir-Low), 81 MG PO DAILY, (Reported) Beclomethasone Dipropionate (Qvar Redihaler), MCG INH UD, (Reported) Buspirone Hcl (Buspirone Hcl), 30 MG PO BID, (Reported) Cholecalciferol (Vitamin D-3 Super Strengt), 1 TAB PO DAILY, (Reported) Divalproex Sodium (Divalproex Sodium), 1 TAB PO TID, (Reported) Hydrochlorothiazide (Hydrochlorothiazide), 1 TAB PO DAILY, (Reported) Hydrocodone-Acetaminophen (Hydrocodone Bitartrate/AC 10-325 mg), 1 TAB PO QID, (Reported) Irbesartan (Avapro), 150 MG PO DAILY, (Reported) Levofloxacin Hemihydrate (Levaquin 500 Mg), 1 TAB PO DAILY Losartan Potassium (Losartan Potassium), 50 MG PO DAILY, (Reported) Metformin Hydrochloride (Metformin Hcl), 1 TAB PO BID, (Reported) Montelukast Sodium (Singulair), 2 TAB PO DAILY, (Reported) Nifedipine (Nifedipine Er), 1 TAB PO DAILY, (Reported) Pantoprazole Sodium Sesquihydr (Protonix), 40 MG PO DAILY Quetiapine Fumerate (Seroquel Xr), 1 TAB PO QPM, (Reported) Rosuvastatin Calcium (Crestor), 20 MG PO DAILY, (Reported) Sertraline Hcl (Sertraline Hcl), 100 MG PO BID, (Reported) Sucralfate (Carafate), 1 GM OR TID Varenicline Tartrate (Varenicline Starti... 0.5 mg X 11 & 1 mg X 42), TAB PO UD, (Reported) Scheduled PRN Hydroxyzine Hcl (Hydroxyzine Hcl), 1 TAB PO BID PRN for ANXIETY, (Reported) Miscellaneous Medications Dulaglutide (Trulicity), Unknown Dose SC, (Reported) Sqymbccpsxb-Calbmpxzhbzl-Psxjk (Trelegy Ellipta 200-62.5-25 Mcg/INH), Unknown Dose IN, (Reported) 35 (Time taken for discharge summary 39 minutes) Discharge Statement: "Patient was advised to return to the ER or call 911 if any headaches, dizziness, shortness of breath, chest pain, abdominal pain, bleeding, fevers, or worsening of medical condition. Patient was counseled about treatment plan, medications, possible side effects, patientverbalized understanding. All questions were answered to the best of my ability. This discharge took greater then 30 minutes in planning, reviewing documentation, counseling the patient, and discussing with other team members." ASSESSMENT ASSESSMENT Hospital Course Improved Assessment Sepsis unknown etiology with white count 20 K Cecily test negative flu test negative treated with Levaquin Acute chest pain secondary to high blood pressure coronary artery disease ruled out Troponin negative x3 Consult for Cardiology Dr. Rubin treatment per ACS protocol, Cardiolite stress test and echocardiogram done by Dr. Diego one year ago normal, patient was offered another stress test, he refused Hypertensive emergency, Acute kidney injury, Leukocytosis, Uncontrolled hypertension, COPD Diabetes, Hyperlipidemia, : Lipitor Depression, Schizophrenia, BuSpar, Depakote Chronic current smoker: Counseled Marijuana abuse Date of Service: Jun 13, 2025 Billing Provider: ANNE MARIE RAYMOND MD Common Visit Codes: [id number] DISCH DAY >30min ANNE MARIE RAYMOND MD Jun 13, 2025 09:23
[2025-06-13] MEDS: levoFLOXacin 500 MG TAB PO SCH (10:38)
== END 2025-06-13 11:19 | disposition home or self-care (01) | DRG 720 ==
LOC: ER 07:06 → OVERFLOW 09:27 → TELE-CENTR 13:10
PROVIDERS: ADMIT Family Medicine; ATTEND Family Medicine
DX: A41.9 Sepsis, unspecified organism (principal); I16.1 Hypertensive emergency; N17.9 Acute kidney failure, unspecified; E11.9 Type 2 diabetes mellitus without complications; E66.9 Obesity, unspecified; F20.9 Schizophrenia, unspecified; F32.A Depression, unspecified; F12.10 Cannabis abuse, uncomplicated; I10 Essential (primary) hypertension; E78.5 Hyperlipidemia, unspecified; F17.210 Nicotine dependence, cigarettes, uncomplicated; K21.9 Gastro-esophageal reflux disease without esophagitis; Z83.3 Family history of diabetes mellitus; Z88.0 Allergy status to penicillin; Z79.82 Long term (current) use of aspirin; Z79.899 Other long term (current) drug therapy; Z79.84 Long term (current) use of oral hypoglycemic drugs; Z68.39 Body mass index [BMI] 39.0-39.9, adult
CPT/HCPCS: 36415; 71045; 80048; 80053; 80061; 81001; 83036; 83880; 84443; 84484; 85025; 87040; 87086; 87088; 87186; 87426; 87804; 93005; 93306; 96361; 96374; 96375; 99291; G0378; J2405